=== PATIENT | male | born 1960 | race Caucasian/White ===

== ENCOUNTER 2017-01-26 10:31 | Emergency (ER) | payer BC, MEDICAID ==
[~2017-01-26] VITALS: Ht 177.8 cm; Wt 104.5 kg
[~2017-01-26 10:31] MED LIST: AMBIEN 10MG10 MG PO; AMBIEN5 MG PO; AMLOPIDINE; ASPIRIN 32325 MG/TAB PO; ASPIRIN E.C.325 MG PO; BENTYL 20MG TAB20 MG PO; BUDEPRION XL300 MG PO; BUFFERED ASPIR325 M1 PO; BUSPAR DIVIDOSE15 MG PO; BYSTOLIC10 MG PO; CARAFATE 1GM1 G PO; CARDENE 20MG CA20 M1 PO; CARDENE 20MG CA20 MG PO; CARDENE 30MG CA30 M1 PO; CELEXA 20MG20 MG/TAB PO; CELEXA20 MG PO; CELEXA40 MG PO; CEPHALEXIN500 M1 PO; CIPRO500 MG PO; CLOPIDOGREL PO; COGENTIN .0.5 MG/TAB PO; COLACE 100100 MG/CAP PO; CRESTOR; CRESTOR PO; CYMBALTA; CYMBALTA 60MG60 MG PO; CYPROHEPTADINE H4 MG PO; CYPROHEPTADINE4 MG PO; DARVOCET N 101 UDTAB PO; DAZIDOX10 MG PO; DICYCLOMINE20 MG PO; DILAUDID 2MG TAB2 MG PO; DILAUDID 4MG TAB4 MG; DOLOPHINE HCL5 MG PO; DURAGESIC25 MCG/PAT TD; EFFIENT10 MG PO; FENTANYL 25 MCG TP; FIORICET 325 MG1 TA1 PO; FIORINAL 325 MG1 CAP PO; FLEXERIL 1010 MG/TAB PO; GI COCKTAIL PO; GLUCOPHAGE1000 MG PO; HYGROTON25 MG PO; IMDUR 60MG60 MG/TAB PO; KLONOPIN 0.5MG0.5 MG PO; LASIX 20MG TABL20 MG PO; LASIX 40MG TABL40 MG PO; LEVAQUIN 5500 MG/TA1 PO; LIORESAL 1010 MG/TAB PO; LIPITOR20 MG PO; LISINOPRIL/HCTZ1 TAB PO; LISINOPRIL10 MG PO; LISINOPRIL2.5 MG PO; LISINOPRIL20 MG PO; LOPRESSOR; LORTAB 10/500 51 TAB PO; LORTAB 5/500 501 TAB PO; METHADONE H10 MG/TAB PO; METHADONE10 MG PO; METOPROLOL TART25 MG PO; METOPROLOL25 MG PO; MINIPRESS 1M1 MG/CAP PO; MOTRIN 400400 MG/TAB PO; MOTRIN 600600 MG/TAB PO; MS CONTIN 115 MG/TAB PO; NAPROSYN500 MG PO; NEUPRO4 MG/24 HR TD; NEXIUM 40MG40 MG PO; NIACIN500 M3 PO; NITROQUICK0.4 MG SL; NITROSTAT0.4 MG SL; NITROSTAT0.4 MG/TAB SL; NITROSTAT0.6 MG SL; NORCO 325 MG-51 TAB PO; NORCO 325 MG-7.1 TAB PO; NORVASC 10MG10 MG PO; NORVASC 5MG5 MG/TAB PO; NORVASC5 MG PO; OXYCODONE HYDRO10 M2 PO; OXYCODONE10 MG PO; OXYCONTIN 20MG20 MG PO; PEPCID 20MG TAB20 MG PO; PEPCID AC20 M1 PO; PEPCID AC20 MG PO; PERCOCET 325 MG1 TA2 PO; PERCOCET 325 MG1 TAB PO; PERCOCET 500 MG1 TAB PO; PERCR 7.5 PO; PERIACTIN 4MG TA4 MG PO; PHENERGAN 25 TA25 MG PO; PLAVIX 75MG TAB75 MG PO; PREDNISONE20 MG PO; PREVACID 30MG30 M1 PO; PRILOSEC10 MG PO; PROMETHAZINE25 M1 PO; RANEXA PO; RANEXA500 MG PO; RESTORIL 1515 MG/CAP PO; RESTORIL22.5 MG PO; RISPERDAL0.5 MG PO; RISPERDAL3 MG PO; SAPHRIS5 MG SL; SEROQUEL XR300 MG PO; TOPAMAX50 MG PO; TOPROL XL25 MG PO; TRAMADOL; TRICOR 48MG48 MG PO; TRILIPIX 135MG PO; TYLENOL 325MG325 MG PO; TYLENOL ARTHRI650 M1 PO; VITAMIN E 400 U4001 PO; VYTORIN; WELLBUTRIN XL150 MG PO; ZESTRIL 20MG TA20 MG PO; ZESTRIL40 MG PO; ZESTRIL5 MG PO; ZOCOR 20MG20 MG PO; ZOCOR20 MG PO; ZYPREXA5 MG PO; [UNRECOGNIZED DRUG - OTHER] PO
[2017-01-26 10:34] VITALS: TEMP 99
[2017-01-26] MEDS ORDERED: TRICOR145 MG PO (10:40)
[2017-01-26] MEDS ORDERED: LOPRESSOR 550 MG/TAB PO (10:41)
[2017-01-26] MEDS ORDERED: PRINIVIL2.5 MG PO (10:42)
[2017-01-26] MEDS ORDERED: REQUIP 1MG T1 MG/TAB PO (10:43)
[2017-01-26 11:22] LABS: BASO % 0.7 % (0.0-2.0); EOS # 0.3 (0.0-0.7); EOS % 4.8 % (0-4.0); GRAN # 3.5 (1.4-6.5); HEMATOCRIT 42.8 % (42.0-52.0); HEMOGLOBIN 14.3 g/dl (13.5-18.0); LYMPH # 1.4 (1.2-3.4); LYMPH % 24.4 % (20.0-51.0); MEAN CELL VOLUME 88 fl (80.0-100.0); MEAN CORPUSCULAR HEMOGLOBIN 30 pg (27.0-31.0); MEAN CORPUSCULAR HGB CONC 33 g/dl (33.0-37.0); MEAN PLATELET VOLUME 9.1 fl (7.4-10.4); MONO # 0.5 (0.1-0.6); MONO % 8.7 % (1.7-9.3); PLATELET COUNT 202 K/mm3 (130-400); RED BLOOD COUNT 4.84 M/mm3 (4.20-5.60); REDCELL DISTRIBUTION WIDTH-CV 12.7 % (11.5-14.5); WHITE BLOOD COUNT 5.7 K/mm3 (4.8-10.8)
[2017-01-26 11:30] LABS: INR 1.2 (0.8-3.0); PROTHROMBIN TIME 13.7 SECONDS (9.7-12.8)
[2017-01-26 11:33] LABS: PARTIAL THROMBOPLASTIN TIME 35.7 SECONDS (26.0-37.0)
[2017-01-26 11:46] LABS: ADJUSTED CALCIUM 9.2 mg/dL (8.4-10.2); ALBUMIN 4.1 gm/dL (3.5-5.0); BILIRUBIN,TOTAL 0.9 mg/dL (0.0-1.0); C-REACTIVE PROTEIN 1.9 mg/dL (0.0-0.9); CALCIUM 9.3 mg/dL (8.4-10.2); CREATININE, serum 1.23 mg/dL (0.66-1.25); POTASSIUM 3.3 mmol/L (3.4-5.0); TOTAL PROTEIN 7.8 gm/dL (6.4-8.2)
[2017-01-26 13:05] VITALS: BP 112/70; PULSE 72
== END 2017-01-26 13:06 | disposition home or self-care (01) ==
LOC: COL.ER 10:31
PROVIDERS: Physician Assistant
DX: K62.5 Hemorrhage of anus and rectum (principal); K59.00 Constipation, unspecified; K60.2 Anal fissure, unspecified; K64.4 Residual hemorrhoidal skin tags; I10 Essential (primary) hypertension; I25.10 Atherosclerotic heart disease of native coronary artery without angina pectoris; Z95.5 Presence of coronary angioplasty implant and graft; Z95.1 Presence of aortocoronary bypass graft; Z79.02 Long term (current) use of antithrombotics/antiplatelets; Z79.891 Long term (current) use of opiate analgesic
CPT/HCPCS: J1170; J7030

== ENCOUNTER 2017-03-13 09:34 | Emergency (ER) | payer BC, MEDICAID ==
[~2017-03-13] VITALS: Ht 177.8 cm; Wt 104.5 kg
[~2017-03-13 09:34] MED LIST changes: +LOPRESSOR 550 MG/TAB PO; +PRINIVIL2.5 MG PO; +REQUIP 1MG T1 MG/TAB PO; +TRICOR145 MG PO
[2017-03-13 09:35] VITALS: TEMP 97.7
[2017-03-13] MEDS ORDERED: SINEMET 25/101 UDTAB PO (10:30)
[2017-03-13 10:31] LABS: ADJUSTED CALCIUM 9.6 mg/dL (8.4-10.2); ALANINE AMINOTRANSFERASE 23 U/L (21-72); ALBUMIN 4.4 gm/dL (3.5-5.0); ALKALINE PHOSPHATASE 34 U/L (50-136); ANION GAP 13 mmol/L (7-16); BASO % 0.6 % (0.0-2.0); BILIRUBIN,TOTAL 0.7 mg/dL (0.0-1.0); BLOOD UREA NITROGEN 23 mg/dL (9-20); C-REACTIVE PROTEIN < 0.5 mg/dL (0.0-0.9); CALCIUM 9.9 mg/dL (8.4-10.2); CARBON DIOXIDE 29 mmol/L (22-30); CHLORIDE 99 mmol/L (98-107); CREATININE, serum 1.23 mg/dL (0.66-1.25); EOS # 0.3 (0.0-0.7); EOS % 4.2 % (0-4.0); GLUCOSE 147 mg/dL (74-106); GRAN % 63.8 % (42.2-75.2); HEMATOCRIT 44.9 % (42.0-52.0); HEMOGLOBIN 14.7 g/dl (13.5-18.0); LIPASE 59 U/L (23-300); LYMPH # 1.6 (1.2-3.4); LYMPH % 25.3 % (20.0-51.0); MEAN CELL VOLUME 89 fl (80.0-100.0); MEAN CORPUSCULAR HEMOGLOBIN 29 pg (27.0-31.0); MEAN CORPUSCULAR HGB CONC 33 g/dl (33.0-37.0); MEAN PLATELET VOLUME 9.9 fl (7.4-10.4); MONO # 0.4 (0.1-0.6); MONO % 5.8 % (1.7-9.3); PLATELET COUNT 248 K/mm3 (130-400); POTASSIUM 3.3 mmol/L (3.4-5.0); RED BLOOD COUNT 5.07 M/mm3 (4.20-5.60); REDCELL DISTRIBUTION WIDTH-CV 13.2 % (11.5-14.5); SODIUM 142 mmol/L (137-145); TOTAL PROTEIN 7.7 gm/dL (6.4-8.2); WHITE BLOOD COUNT 6.2 K/mm3 (4.8-10.8)
[2017-03-13 10:36] LABS: B-TYPE NATRIURETIC PEPTIDE 417 pg/mL (0-125)
[2017-03-13] MEDS ORDERED: ZOFRAN 4MG T4 MG/TAB PO (14:50)
[2017-03-13 15:06] VITALS: BP 134/78; PULSE 65
== END 2017-03-13 15:07 | disposition home or self-care (01) ==
LOC: COL.ER 09:34
PROVIDERS: Emergency Medicine
DX: R10.84 Generalized abdominal pain (principal); R53.81 Other malaise; R11.2 Nausea with vomiting, unspecified; R63.0 Anorexia; R42 Dizziness and giddiness; I51.9 Heart disease, unspecified; Z79.02 Long term (current) use of antithrombotics/antiplatelets
CPT/HCPCS: J1170; J2405; J7030; Q9967

== ENCOUNTER 2017-03-20 06:00 | Day surgery (SDC) | payer BC, MEDICAID ==
[~2017-03-20] VITALS: Ht 177.8 cm; Wt 102.4 kg
[~2017-03-20 06:00] MED LIST changes: +SINEMET 25/101 UDTAB PO; +ZOFRAN 4MG T4 MG/TAB PO
[2017-03-20 06:31] VITALS: BP 178/109; PULSE 72; TEMP 98.1
[2017-03-20] MEDS ORDERED: PERCOCET 325 MG1 TA2 PO (06:36)
[2017-03-20 08:15] VITALS: BP 104/76; PULSE 66; TEMP 97.5
[2017-03-20 08:30] VITALS: BP 132/94; PULSE 61
== END 2017-03-20 09:00 | disposition home or self-care (01) ==
LOC: SDCO 06:00
DX: R19.5 Other fecal abnormalities (principal); K57.30 Diverticulosis of large intestine without perforation or abscess without bleeding; E78.00 Pure hypercholesterolemia, unspecified; I10 Essential (primary) hypertension; Z87.891 Personal history of nicotine dependence; Z79.02 Long term (current) use of antithrombotics/antiplatelets; Z79.82 Long term (current) use of aspirin; Z79.899 Other long term (current) drug therapy
CPT/HCPCS: J2250; J3010; J7030

== ENCOUNTER 2017-11-13 06:41 | Inpatient (IN) | payer MEDICAID ==
[2017-11-13] VITALS (262 sets, daily range): BP systolic 127–150; BP diastolic 73–95; PULSE 77–85; TEMP 97.3–98.3; O2SAT 89–99
[~2017-11-13] VITALS: Ht 177.8 cm; Wt 102.9 kg
[2017-11-13 07:11] LABS: BASO # 0.1 (0.0-0.2); BASO % 0.7 % (0.0-2.0); EOS # 0.3 (0.0-0.7); EOS % 3.2 % (0-4.0); GRAN # 5.3 (1.4-6.5); GRAN % 61.8 % (42.2-75.2); HEMATOCRIT 51.8 % (42.0-52.0); HEMOGLOBIN 17.2 g/dl (13.5-18.0); LYMPH # 2.1 (1.2-3.4); LYMPH % 24.3 % (20.0-51.0); MEAN CELL VOLUME 92 fl (80.0-100.0); MEAN CORPUSCULAR HEMOGLOBIN 30 pg (27.0-31.0); MEAN CORPUSCULAR HGB CONC 33 g/dl (33.0-37.0); MEAN PLATELET VOLUME 9.4 fl (7.4-10.4); MONO # 0.8 (0.1-0.6); MONO % 9.5 % (1.7-9.3); PLATELET COUNT 228 K/mm3 (130-400); RED BLOOD COUNT 5.66 M/mm3 (4.20-5.60); WHITE BLOOD COUNT 8.6 K/mm3 (4.8-10.8)
[2017-11-13 07:15] LABS: INR 1.2 (0.8-3.0); PROTHROMBIN TIME 13.4 SECONDS (9.7-12.8)
[2017-11-13 07:18] LABS: PARTIAL THROMBOPLASTIN TIME 30.6 SECONDS (26.0-37.0)
[2017-11-13 07:22] LABS: ALANINE AMINOTRANSFERASE 50 U/L (21-72); ALBUMIN 4.4 gm/dL (3.5-5.0); ALKALINE PHOSPHATASE 75 U/L (50-136); ANION GAP 13 mmol/L (7-16); BILIRUBIN,TOTAL 0.8 mg/dL (0.0-1.0); BLOOD UREA NITROGEN 18 mg/dL (9-20); CALCIUM 9.3 mg/dL (8.4-10.2); CARBON DIOXIDE 21 mmol/L (22-30); CHLORIDE 107 mmol/L (98-107); CREATININE, serum 0.93 mg/dL (0.66-1.25); GLUCOSE 123 mg/dL (74-106); LIPASE 98 U/L (23-300); POTASSIUM 3.6 mmol/L (3.4-5.0); SODIUM 141 mmol/L (137-145); TOTAL PROTEIN 8.3 gm/dL (6.4-8.2)
[2017-11-13] MEDS ORDERED: IMDUR 60MG60 MG/TAB PO (07:33)
[2017-11-13 07:34] LABS: B-TYPE NATRIURETIC PEPTIDE 69 pg/mL (0-125)
[2017-11-13] MEDS ORDERED: PERCOCET 325 MG1 TAB PO (07:36)
[2017-11-13] MEDS ORDERED: RANEXA 500MG T500 MG PO (07:36)
[2017-11-13 07:37] LABS: TROPONIN-I < 0.012 ng/mL (0.000-0.034)
[2017-11-14 00:39] VITALS: BP 119/68; PULSE 61; TEMP 98.3
[2017-11-14 03:22] VITALS: BP 120/85; PULSE 66
[2017-11-14 07:36] VITALS: BP 127/67; PULSE 64; TEMP 98
[2017-11-14 11:09] VITALS: BP 135/67; PULSE 59; TEMP 97.6
[2017-11-14] MEDS ORDERED: NITROSTAT0.4 MG/TAB SL (12:37)
[2017-11-14] MEDS ORDERED: RANEXA 500MG T500 MG PO (12:38)
[2017-11-14] MEDS ORDERED: IMDUR 60MG60 MG/TAB PO (12:38)
[2017-11-14] MEDS ORDERED: PERCOCET 325 MG1 TAB PO (12:39)
== END 2017-11-14 14:00 | disposition home or self-care (01) | DRG 313 ==
LOC: COL.ER 06:41 → ICU 08:07 → MEDICAL 14:50 → ICU 14:50 → MEDICAL 14:50
PROVIDERS: Emergency Medicine
DX: R07.89 Other chest pain (principal); I10 Essential (primary) hypertension; I25.2 Old myocardial infarction; G47.33 Obstructive sleep apnea (adult) (pediatric); F17.210 Nicotine dependence, cigarettes, uncomplicated; Z95.0 Presence of cardiac pacemaker; Z95.5 Presence of coronary angioplasty implant and graft
CPT/HCPCS: J2270; J2405

== ENCOUNTER 2017-11-16 14:08 | Emergency (ER) | payer MEDICAID ==
[~2017-11-16] VITALS: Ht 177.8 cm; Wt 104.5 kg
[~2017-11-16 14:08] MED LIST changes: +RANEXA 500MG T500 MG PO
[2017-11-16 14:11] VITALS: TEMP 96
[2017-11-16 14:43] LABS: BASO % 0.5 % (0.0-2.0); EOS # 0.2 (0.0-0.7); EOS % 3.9 % (0-4.0); GRAN # 3.4 (1.4-6.5); HEMATOCRIT 47.8 % (42.0-52.0); HEMOGLOBIN 16.1 g/dl (13.5-18.0); LYMPH # 1.4 (1.2-3.4); LYMPH % 25.1 % (20.0-51.0); MEAN CELL VOLUME 90 fl (80.0-100.0); MEAN CORPUSCULAR HEMOGLOBIN 30 pg (27.0-31.0); MEAN CORPUSCULAR HGB CONC 34 g/dl (33.0-37.0); MEAN PLATELET VOLUME 9.6 fl (7.4-10.4); MONO # 0.5 (0.1-0.6); MONO % 9.1 % (1.7-9.3); PLATELET COUNT 221 K/mm3 (130-400); RED BLOOD COUNT 5.33 M/mm3 (4.20-5.60); WHITE BLOOD COUNT 5.6 K/mm3 (4.8-10.8)
[2017-11-16 14:53] LABS: ADJUSTED CALCIUM 9.3 mg/dL (8.4-10.2); ALANINE AMINOTRANSFERASE 52 U/L (21-72); ALBUMIN 4.1 gm/dL (3.5-5.0); ALKALINE PHOSPHATASE 63 U/L (50-136); ANION GAP 9 mmol/L (7-16); BILIRUBIN,TOTAL 0.6 mg/dL (0.0-1.0); BLOOD UREA NITROGEN 11 mg/dL (9-20); CALCIUM 9.4 mg/dL (8.4-10.2); CARBON DIOXIDE 25 mmol/L (22-30); CHLORIDE 106 mmol/L (98-107); CREATININE, serum 1.14 mg/dL (0.66-1.25); GLUCOSE 141 mg/dL (74-106); LIPASE 48 U/L (23-300); POTASSIUM 3.5 mmol/L (3.4-5.0); SODIUM 140 mmol/L (137-145); TOTAL PROTEIN 7.6 gm/dL (6.4-8.2)
[2017-11-16 15:05] LABS: B-TYPE NATRIURETIC PEPTIDE 210 pg/mL (0-125)
[2017-11-16 15:06] LABS: TROPONIN-I < 0.012 ng/mL (0.000-0.034)
[2017-11-16 17:14] VITALS: BP 165/106; PULSE 78
== END 2017-11-16 17:15 | disposition home or self-care (01) ==
LOC: COL.ER 14:08
PROVIDERS: Emergency Medicine
DX: I25.10 Atherosclerotic heart disease of native coronary artery without angina pectoris (principal); R55 Syncope and collapse; R07.9 Chest pain, unspecified; I10 Essential (primary) hypertension; E78.5 Hyperlipidemia, unspecified; F17.210 Nicotine dependence, cigarettes, uncomplicated; Z95.5 Presence of coronary angioplasty implant and graft; Z90.49 Acquired absence of other specified parts of digestive tract
CPT/HCPCS: J2270; J2405

== ENCOUNTER 2017-12-17 16:21 | Emergency (ER) | payer MEDICAID ==
[~2017-12-17] VITALS: Ht 177.8 cm; Wt 100.0 kg
[2017-12-17 16:31] VITALS: TEMP 99.5
[2017-12-17 16:57] LABS: BASO # 0.1 (0.0-0.2); BASO % 0.7 % (0.0-2.0); EOS # 0.2 (0.0-0.7); EOS % 3.3 % (0-4.0); GRAN # 4.2 (1.4-6.5); HEMOGLOBIN 16.6 g/dl (13.5-18.0); LYMPH % 28.2 % (20.0-51.0); MEAN CELL VOLUME 89 fl (80.0-100.0); MEAN CORPUSCULAR HEMOGLOBIN 30 pg (27.0-31.0); MEAN CORPUSCULAR HGB CONC 34 g/dl (33.0-37.0); MEAN PLATELET VOLUME 9.6 fl (7.4-10.4); MONO # 0.7 (0.1-0.6); MONO % 9.4 % (1.7-9.3); PLATELET COUNT 209 K/mm3 (130-400); RED BLOOD COUNT 5.53 M/mm3 (4.20-5.60); REDCELL DISTRIBUTION WIDTH-CV 13.4 % (11.5-14.5)
[2017-12-17 17:06] LABS: ALANINE AMINOTRANSFERASE 38 U/L (21-72); ALBUMIN 4.4 gm/dL (3.5-5.0); ALKALINE PHOSPHATASE 59 U/L (50-136); ANION GAP 9 mmol/L (7-16); AST,SGOT 32 U/L (15-37); BILIRUBIN,TOTAL 0.6 mg/dL (0.0-1.0); BLOOD UREA NITROGEN 16 mg/dL (9-20); C-REACTIVE PROTEIN 0.6 mg/dL (0.0-0.9); CALCIUM 9.6 mg/dL (8.4-10.2); CARBON DIOXIDE 25 mmol/L (22-30); CHLORIDE 104 mmol/L (98-107); CREATININE, serum 1.06 mg/dL (0.66-1.25); GLUCOSE 121 mg/dL (74-106); LIPASE 159 U/L (23-300); POTASSIUM 3.8 mmol/L (3.4-5.0); SODIUM 139 mmol/L (137-145)
[2017-12-17 17:15] LABS: TROPONIN-I < 0.012 ng/mL (0.000-0.034)
[2017-12-17 17:34] LABS: INFLUENZA A NEGATIVE; INFLUENZA B NEGATIVE
[2017-12-17] MEDS ORDERED: CYMBALTA 30MG30 MG PO (21:29)
[2017-12-17 22:39] VITALS: BP 154/94; PULSE 63
== END 2017-12-17 22:39 | disposition home or self-care (01) ==
LOC: COL.ER 16:21 → ICU 21:48
PROVIDERS: Emergency Medicine
DX: R07.89 Other chest pain (principal); E78.5 Hyperlipidemia, unspecified; I25.2 Old myocardial infarction; F17.210 Nicotine dependence, cigarettes, uncomplicated; I25.10 Atherosclerotic heart disease of native coronary artery without angina pectoris; Z95.5 Presence of coronary angioplasty implant and graft
CPT/HCPCS: J1170; J2405

== ENCOUNTER → 2017-12-30 | Outpatient (CLI) | payer MEDICAID ==
[~2017-12-30] MED LIST changes: +CYMBALTA 30MG30 MG PO
== END ==
LOC: COL.RAD 12-24 13:00
DX: M50.30 Other cervical disc degeneration, unspecified cervical region (principal); M50.223 Other cervical disc displacement at C6-C7 level; M48.02 Spinal stenosis, cervical region

== ENCOUNTER 2018-01-04 10:23 | Emergency (ER) | payer MEDICAID ==
[~2018-01-04] VITALS: Ht 177.8 cm; Wt 100.0 kg
[2018-01-04 10:28] VITALS: TEMP 97.2
[2018-01-04 11:21] LABS: BASO # 0.1 (0.0-0.2); BASO % 1.5 % (0.0-2.0); EOS # 0.4 (0.0-0.7); EOS % 4.9 % (0-4.0); GRAN # 5.1 (1.4-6.5); GRAN % 61.4 % (42.2-75.2); HEMOGLOBIN 17.8 g/dl (13.5-18.0); LYMPH # 2.2 (1.2-3.4); LYMPH % 26.8 % (20.0-51.0); MEAN CELL VOLUME 88 fl (80.0-100.0); MEAN CORPUSCULAR HEMOGLOBIN 30 pg (27.0-31.0); MEAN CORPUSCULAR HGB CONC 34 g/dl (33.0-37.0); MONO # 0.4 (0.1-0.6); MONO % 4.7 % (1.7-9.3); PLATELET COUNT 294 K/mm3 (130-400); RED BLOOD COUNT 5.96 M/mm3 (4.20-5.60); REDCELL DISTRIBUTION WIDTH-CV 13.8 % (11.5-14.5)
[2018-01-04 11:22] LABS: HEMATOCRIT 52.5 % (42.0-52.0)
[2018-01-04 11:27] LABS: ALANINE AMINOTRANSFERASE 33 U/L (21-72); ALBUMIN 4.6 gm/dL (3.5-5.0); ALKALINE PHOSPHATASE 65 U/L (50-136); ANION GAP 17 mmol/L (7-16); AST,SGOT 34 U/L (15-37); BILIRUBIN,TOTAL 0.5 mg/dL (0.0-1.0); BLOOD UREA NITROGEN 11 mg/dL (9-20); CALCIUM 9.1 mg/dL (8.4-10.2); CARBON DIOXIDE 21 mmol/L (22-30); CHLORIDE 105 mmol/L (98-107); CREATININE, serum 0.81 mg/dL (0.66-1.25); GLUCOSE 121 mg/dL (74-106); POTASSIUM 4.3 mmol/L (3.4-5.0); SODIUM 143 mmol/L (137-145); TOTAL PROTEIN 8.7 gm/dL (6.4-8.2)
[2018-01-04 11:29] LABS: ACETAMINOPHEN < 10 ug/mL (10-30); SALICYLATE < 1.0 mg/dL
[2018-01-04 11:41] LABS: ALCOHOL(ethanol),MEDICAL 345 mg/dL; TROPONIN-I < 0.012 ng/mL (0.000-0.034)
[2018-01-04 13:54] VITALS: BP 134/81; PULSE 86
[2018-01-04] MEDS ORDERED: SINEMET-25/251 UDTAB PO (17:39)
[2018-01-04] MEDS ORDERED: TRICOR145 MG PO (17:42)
[2018-01-04] MEDS ORDERED: PACERONE200 MG PO (17:50)
== END 2018-01-04 13:55 | disposition home or self-care (01) ==
LOC: COL.ER 10:23
PROVIDERS: Emergency Medicine
DX: F10.129 Alcohol abuse with intoxication, unspecified (principal); Y90.8 Blood alcohol level of 240 mg/100 ml or more; F32.9 Major depressive disorder, single episode, unspecified; F11.20 Opioid dependence, uncomplicated; I10 Essential (primary) hypertension; I25.10 Atherosclerotic heart disease of native coronary artery without angina pectoris; Z95.5 Presence of coronary angioplasty implant and graft; Z95.0 Presence of cardiac pacemaker; Z90.49 Acquired absence of other specified parts of digestive tract

== ENCOUNTER 2018-01-04 15:38 | Emergency (ER) | payer MEDICAID ==
[~2018-01-04] VITALS: Ht 177.8 cm; Wt 95.5 kg
[2018-01-04 15:43] VITALS: TEMP 98.3
[2018-01-04 16:19] LABS: COLLECTION METHOD CLEAN CATCH
[2018-01-04 16:24] LABS: PH 5 (5-8); URINE APPEARANCE Clear; URINE BILIRUBIN Negative (NEGATIVE); URINE BLOOD 1+ (NEGATIVE); URINE COLOR Yellow; URINE GLUCOSE Negative (NEGATIVE); URINE KETONE Negative (NEGATIVE); URINE LEUKOCYTE ESTERASE Negative (NEGATIVE); URINE NITRATE Negative (NEGATIVE); URINE PROTEIN(semi-quant) 1+ (NEGATIVE); URINE UROBILINOGEN Negative (NEGATIVE)
[2018-01-04 16:39] LABS: URINE RBC 0-2 /hpf
[2018-01-04 16:50] LABS: TRICYCLIC ANTIDEPRESS URINE NEGATIVE
[2018-01-04 17:02] LABS: ALANINE AMINOTRANSFERASE 29 U/L (21-72); ALBUMIN 4.8 gm/dL (3.5-5.0); ALCOHOL(ethanol),MEDICAL 183 mg/dL; ALKALINE PHOSPHATASE 57 U/L (50-136); ANION GAP 17 mmol/L (7-16); AST,SGOT 27 U/L (15-37); BILIRUBIN,TOTAL 0.4 mg/dL (0.0-1.0); BLOOD UREA NITROGEN 12 mg/dL (9-20); CALCIUM 9.6 mg/dL (8.4-10.2); CARBON DIOXIDE 22 mmol/L (22-30); CHLORIDE 104 mmol/L (98-107); CREATININE, serum 0.83 mg/dL (0.66-1.25); GLUCOSE 164 mg/dL (74-106); POTASSIUM 4.3 mmol/L (3.4-5.0); SODIUM 143 mmol/L (137-145); TOTAL PROTEIN 8.3 gm/dL (6.4-8.2)
[2018-01-04 17:03] LABS: ACETAMINOPHEN < 10 ug/mL (10-30); SALICYLATE < 1.0 mg/dL
[2018-01-04 17:39] LABS: BASO # 0.1 (0.0-0.2); BASO % 1.2 % (0.0-2.0); EOS # 0.2 (0.0-0.7); EOS % 2.9 % (0-4.0); GRAN # 5.3 (1.4-6.5); GRAN % 65.8 % (42.2-75.2); HEMOGLOBIN 17.7 g/dl (13.5-18.0); LYMPH # 1.9 (1.2-3.4); LYMPH % 23.4 % (20.0-51.0); MEAN CELL VOLUME 88 fl (80.0-100.0); MEAN CORPUSCULAR HEMOGLOBIN 30 pg (27.0-31.0); MEAN CORPUSCULAR HGB CONC 34 g/dl (33.0-37.0); MEAN PLATELET VOLUME 8.8 fl (7.4-10.4); MONO # 0.5 (0.1-0.6); MONO % 6.2 % (1.7-9.3); PLATELET COUNT 303 K/mm3 (130-400); RED BLOOD COUNT 5.94 M/mm3 (4.20-5.60); REDCELL DISTRIBUTION WIDTH-CV 13.8 % (11.5-14.5)
[2018-01-04] MEDS ORDERED: SINEMET-25/251 UDTAB PO (17:39)
[2018-01-04 17:40] LABS: HEMATOCRIT 52.2 % (42.0-52.0)
[2018-01-04] MEDS ORDERED: TRICOR145 MG PO (17:42)
[2018-01-04] MEDS ORDERED: PACERONE200 MG PO (17:50)
[2018-01-05 03:46] VITALS: BP 177/87; PULSE 62
== END 2018-01-05 04:19 ==
LOC: COL.ER 15:38
PROVIDERS: Emergency Medicine
DX: F10.129 Alcohol abuse with intoxication, unspecified (principal); F32.9 Major depressive disorder, single episode, unspecified; R45.851 Suicidal ideations; I10 Essential (primary) hypertension; I25.10 Atherosclerotic heart disease of native coronary artery without angina pectoris; G89.29 Other chronic pain; F17.210 Nicotine dependence, cigarettes, uncomplicated; Y90.6 Blood alcohol level of 120-199 mg/100 ml; Z95.0 Presence of cardiac pacemaker; Z79.02 Long term (current) use of antithrombotics/antiplatelets

== ENCOUNTER → 2018-01-19 | Outpatient (CLI) | payer MEDICAID ==
[~2018-01-19] MED LIST changes: +PACERONE200 MG PO; +SINEMET-25/251 UDTAB PO
== END ==
LOC: MHCPAIN 14:20
DX: G89.29 Other chronic pain (principal); M54.12 Radiculopathy, cervical region; M47.812 Spondylosis without myelopathy or radiculopathy, cervical region; R51 Headache; M54.81 Occipital neuralgia
CPT/HCPCS: G0463

== ENCOUNTER 2018-02-04 17:26 | Emergency (ER) | payer BC, MEDICAID ==
[~2018-02-04] VITALS: Ht 177.8 cm; Wt 104.5 kg
[2018-02-04 17:28] VITALS: BP 146/90; PULSE 87; TEMP 98
[2018-02-04 19:40] LABS: BASO # 0.1 (0.0-0.2); EOS # 0.4 (0.0-0.7); EOS % 4.8 % (0-4.0); GRAN # 5.5 (1.4-6.5); GRAN % 60.4 % (42.2-75.2); HEMATOCRIT 45.4 % (42.0-52.0); LYMPH # 2.3 (1.2-3.4); LYMPH % 25.1 % (20.0-51.0); MEAN CELL VOLUME 90 fl (80.0-100.0); MEAN CORPUSCULAR HEMOGLOBIN 30 pg (27.0-31.0); MEAN CORPUSCULAR HGB CONC 33 g/dl (33.0-37.0); MEAN PLATELET VOLUME 9.7 fl (7.4-10.4); MONO # 0.7 (0.1-0.6); MONO % 7.9 % (1.7-9.3); PLATELET COUNT 251 K/mm3 (130-400); RED BLOOD COUNT 5.07 M/mm3 (4.20-5.60); REDCELL DISTRIBUTION WIDTH-CV 13.9 % (11.5-14.5)
[2018-02-04 19:45] LABS: ALANINE AMINOTRANSFERASE 27 U/L (21-72); ALKALINE PHOSPHATASE 37 U/L (50-136); ANION GAP 10 mmol/L (7-16); AST,SGOT 29 U/L (15-37); BILIRUBIN,TOTAL 0.4 mg/dL (0.0-1.0); BLOOD UREA NITROGEN 18 mg/dL (9-20); CALCIUM 9.5 mg/dL (8.4-10.2); CARBON DIOXIDE 28 mmol/L (22-30); CHLORIDE 100 mmol/L (98-107); CREATININE, serum 1.01 mg/dL (0.66-1.25); GLUCOSE 110 mg/dL (74-106); POTASSIUM 3.9 mmol/L (3.4-5.0); SODIUM 139 mmol/L (137-145); TOTAL PROTEIN 7.6 gm/dL (6.4-8.2)
[2018-02-04 19:46] LABS: ACETAMINOPHEN < 10 ug/mL (10-30); ALCOHOL(ethanol),MEDICAL < 10 mg/dL; SALICYLATE < 1.0 mg/dL
[2018-02-04 20:08] LABS: TRICYCLIC ANTIDEPRESS URINE NEGATIVE
== END 2018-02-04 23:35 | disposition home or self-care (01) ==
LOC: COL.ER 17:26
PROVIDERS: Emergency Medicine
DX: R51 Headache (principal); I25.2 Old myocardial infarction; G20 Parkinson's disease; F17.210 Nicotine dependence, cigarettes, uncomplicated; Z87.19 Personal history of other diseases of the digestive system; Z98.890 Other specified postprocedural states; Z79.02 Long term (current) use of antithrombotics/antiplatelets
CPT/HCPCS: J1200; J1630; J2060; J2765; J3475

== ENCOUNTER → 2018-02-09 | Outpatient (CLI) | payer BC, MEDICAID | LOC: MHCPAIN 12:17 | DX: G89.29 Other chronic pain (principal); M50.90 Cervical disc disorder, unspecified, unspecified cervical region; M54.12 Radiculopathy, cervical region; R51 Headache; M96.1 Postlaminectomy syndrome, not elsewhere classified | CPT/HCPCS: G0463 ==

== ENCOUNTER → 2018-03-15 | Outpatient (CLI) | payer BC, MEDICAID | LOC: MHCPAIN 09:02 | DX: G89.29 Other chronic pain (principal); M50.90 Cervical disc disorder, unspecified, unspecified cervical region; R51 Headache; M96.1 Postlaminectomy syndrome, not elsewhere classified | CPT/HCPCS: G0463 ==

== ENCOUNTER 2018-03-21 07:07 | Emergency (ER) | payer MEDICAID ==
[~2018-03-21] VITALS: Ht 177.8 cm; Wt 104.5 kg
[2018-03-21 07:18] VITALS: TEMP 98.4
[2018-03-21 07:31] LABS: BASO % 0.6 % (0.0-2.0); EOS # 0.4 (0.0-0.7); EOS % 5.9 % (0-4.0); GRAN # 3.9 (1.4-6.5); GRAN % 58.6 % (42.2-75.2); HEMATOCRIT 40.8 % (42.0-52.0); HEMOGLOBIN 13.7 g/dl (13.5-18.0); LYMPH # 1.5 (1.2-3.4); LYMPH % 22.7 % (20.0-51.0); MEAN CELL VOLUME 92 fl (80.0-100.0); MEAN CORPUSCULAR HEMOGLOBIN 31 pg (27.0-31.0); MEAN CORPUSCULAR HGB CONC 34 g/dl (33.0-37.0); MEAN PLATELET VOLUME 9.6 fl (7.4-10.4); MONO # 0.7 (0.1-0.6); MONO % 10.8 % (1.7-9.3); PLATELET COUNT 205 K/mm3 (130-400); RED BLOOD COUNT 4.46 M/mm3 (4.20-5.60); REDCELL DISTRIBUTION WIDTH-CV 14.8 % (11.5-14.5)
[2018-03-21 07:42] LABS: ALANINE AMINOTRANSFERASE 23 U/L (21-72); ALBUMIN 3.6 gm/dL (3.5-5.0); ALKALINE PHOSPHATASE 48 U/L (50-136); ANION GAP 10 mmol/L (7-16); AST,SGOT 24 U/L (15-37); BILIRUBIN,TOTAL 0.5 mg/dL (0.0-1.0); BLOOD UREA NITROGEN 7 mg/dL (9-20); CALCIUM 8.7 mg/dL (8.4-10.2); CARBON DIOXIDE 30 mmol/L (22-30); CHLORIDE 101 mmol/L (98-107); CREATINE KINASE 122 U/L (55-170); CREATININE, serum 0.92 mg/dL (0.66-1.25); GLUCOSE 139 mg/dL (74-106); LIPASE 47 U/L (23-300); POTASSIUM 3.5 mmol/L (3.4-5.0); SODIUM 141 mmol/L (137-145); TOTAL PROTEIN 7.6 gm/dL (6.4-8.2)
[2018-03-21] MEDS ORDERED: PERCOCET 325 MG1 TAB PO (07:42)
[2018-03-21] MEDS ORDERED: SEROQUEL 2525 MG/TAB PO (07:42)
[2018-03-21] MEDS ORDERED: SEROQUEL 200MG200 MG PO (07:43)
[2018-03-21] MEDS ORDERED: REMERON 15M15 MG/TA1 PO (07:44)
[2018-03-21 07:46] LABS: INR 1.2 (0.8-3.0); PROTHROMBIN TIME 13.7 SECONDS (9.7-12.8)
[2018-03-21 07:49] LABS: PARTIAL THROMBOPLASTIN TIME 30.3 SECONDS (26.0-37.0)
[2018-03-21 07:55] LABS: TROPONIN-I < 0.012 ng/mL (0.000-0.034)
[2018-03-21 08:02] LABS: COLLECTION METHOD CLEAN CATCH
[2018-03-21 08:10] LABS: PH 7 (5-8); SQUAMOUS EPITHELIAL None Seen /hpf; URINE APPEARANCE Clear; URINE BACTERIA None Seen /hpf; URINE BILIRUBIN Negative (NEGATIVE); URINE BLOOD Negative (NEGATIVE); URINE COLOR Yellow; URINE GLUCOSE Negative (NEGATIVE); URINE KETONE Negative (NEGATIVE); URINE LEUKOCYTE ESTERASE Negative (NEGATIVE); URINE NITRATE Negative (NEGATIVE); URINE PROTEIN(semi-quant) Negative (NEGATIVE); URINE RBC None Seen /hpf
[2018-03-21] MEDS ORDERED: CARAFATE 1GM1 G PO (09:00)
[2018-03-21] MEDS ORDERED: PROTONIX 40MG T40 MG PO (09:00)
[2018-03-21 09:31] VITALS: BP 144/85; PULSE 60
[2018-03-22] VITALS (108 sets, daily range): O2SAT 96–100
== END 2018-03-21 09:46 | disposition home or self-care (01) ==
LOC: COL.ER 07:07
PROVIDERS: Emergency Medicine
DX: K20.9 Esophagitis, unspecified (principal); M54.6 Pain in thoracic spine; R07.89 Other chest pain; I10 Essential (primary) hypertension; I25.10 Atherosclerotic heart disease of native coronary artery without angina pectoris; I42.2 Other hypertrophic cardiomyopathy; G89.29 Other chronic pain; Z86.79 Personal history of other diseases of the circulatory system; Z95.0 Presence of cardiac pacemaker; Z95.1 Presence of aortocoronary bypass graft; Z95.5 Presence of coronary angioplasty implant and graft; Z90.49 Acquired absence of other specified parts of digestive tract; Z79.02 Long term (current) use of antithrombotics/antiplatelets
CPT/HCPCS: Q9967

== ENCOUNTER 2018-03-22 08:09 | Inpatient (IN) | payer MEDICAID ==
[~2018-03-22] VITALS: Ht 177.8 cm; Wt 111.6 kg
[2018-03-22] VITALS (578 sets, daily range): BP systolic 88–143; BP diastolic 52–85; PULSE 59–69; TEMP 98–98.5; O2SAT 75–100
[~2018-03-22 08:09] MED LIST changes: +PROTONIX 40MG T40 MG PO; +REMERON 15M15 MG/TA1 PO; +SEROQUEL 200MG200 MG PO; +SEROQUEL 2525 MG/TAB PO
[2018-03-22 08:25] LABS: ARTERIAL BLD GAS O2 SATURATION 93.8 % (92-100); ARTERIAL BLD GAS TCO2 CT 27.9; ARTERIAL BLOOD GAS BASE EXCESS -1.4 (-2-2); ARTERIAL BLOOD GAS HCO3 26.2 meq/L (22-26); ARTERIAL BLOOD GAS PCO2 55.4 mmHg (35-45); ARTERIAL BLOOD GAS pH 7.29 (7.35-7.45)
[2018-03-22 08:34] LABS: BASO # 0.1 (0.0-0.2); BASO % 0.5 % (0.0-2.0); EOS # 0.5 (0.0-0.7); EOS % 4.1 % (0-4.0); GRAN # 8.7 (1.4-6.5); GRAN % 73.4 % (42.2-75.2); HEMATOCRIT 43.6 % (42.0-52.0); HEMOGLOBIN 14.6 g/dl (13.5-18.0); LYMPH # 1.7 (1.2-3.4); MEAN CELL VOLUME 91 fl (80.0-100.0); MEAN CORPUSCULAR HEMOGLOBIN 30 pg (27.0-31.0); MEAN CORPUSCULAR HGB CONC 34 g/dl (33.0-37.0); MEAN PLATELET VOLUME 9.9 fl (7.4-10.4); MONO # 0.8 (0.1-0.6); PLATELET COUNT 298 K/mm3 (130-400); REDCELL DISTRIBUTION WIDTH-CV 14.8 % (11.5-14.5)
[2018-03-22 08:43] LABS: INR 1.3 (0.8-3.0); PROTHROMBIN TIME 14.8 SECONDS (9.7-12.8)
[2018-03-22 08:46] LABS: PARTIAL THROMBOPLASTIN TIME 28.9 SECONDS (26.0-37.0)
[2018-03-22 08:49] LABS: ALANINE AMINOTRANSFERASE 23 U/L (21-72); ALBUMIN 3.9 gm/dL (3.5-5.0); ALKALINE PHOSPHATASE 50 U/L (50-136); ANION GAP 14 mmol/L (7-16); AST,SGOT 23 U/L (15-37); BILIRUBIN,TOTAL 0.8 mg/dL (0.0-1.0); BLOOD UREA NITROGEN 9 mg/dL (9-20); CALCIUM 8.7 mg/dL (8.4-10.2); CARBON DIOXIDE 24 mmol/L (22-30); CHLORIDE 99 mmol/L (98-107); CREATINE KINASE 95 U/L (55-170); CREATININE, serum 0.93 mg/dL (0.66-1.25); GLUCOSE 254 mg/dL (74-106); LIPASE 31 U/L (23-300); POTASSIUM 3.7 mmol/L (3.4-5.0); SODIUM 137 mmol/L (137-145); TOTAL PROTEIN 8.4 gm/dL (6.4-8.2)
[2018-03-22 09:02] LABS: TROPONIN-I < 0.012 ng/mL (0.000-0.034)
[2018-03-23] VITALS (590 sets, daily range): BP systolic 110–133; BP diastolic 64–89; PULSE 59–60; TEMP 97.7–98.8; O2SAT 90–100
[2018-03-23 05:26] LABS: BASO % 0.5 % (0.0-2.0); EOS # 0.3 (0.0-0.7); EOS % 5.4 % (0-4.0); GRAN # 3.3 (1.4-6.5); GRAN % 60.4 % (42.2-75.2); HEMATOCRIT 39.5 % (42.0-52.0); LYMPH # 1.2 (1.2-3.4); LYMPH % 22.4 % (20.0-51.0); MEAN CELL VOLUME 93 fl (80.0-100.0); MEAN CORPUSCULAR HEMOGLOBIN 31 pg (27.0-31.0); MEAN CORPUSCULAR HGB CONC 33 g/dl (33.0-37.0); MEAN PLATELET VOLUME 9.5 fl (7.4-10.4); MONO # 0.6 (0.1-0.6); MONO % 10.8 % (1.7-9.3); PLATELET COUNT 201 K/mm3 (130-400); RED BLOOD COUNT 4.25 M/mm3 (4.20-5.60); REDCELL DISTRIBUTION WIDTH-CV 15.1 % (11.5-14.5)
[2018-03-23 05:42] LABS: ALBUMIN 3.4 gm/dL (3.5-5.0); BILIRUBIN,TOTAL 0.7 mg/dL (0.0-1.0); CALCIUM 8.6 mg/dL (8.4-10.2); CREATININE, serum 1.03 mg/dL (0.66-1.25); MAGNESIUM 1.9 mg/dL (1.6-2.3); POTASSIUM 3.2 mmol/L (3.4-5.0); TOTAL PROTEIN 7.3 gm/dL (6.4-8.2)
[2018-03-24] VITALS: BP 142/85; PULSE 61; TEMP 97.5
[2018-03-24 04:00] VITALS: BP 155/91; BP 170/91; PULSE 62; TEMP 97.4
[2018-03-24 06:44] LABS: BASO % 0.5 % (0.0-2.0); EOS # 0.4 (0.0-0.7); EOS % 6.9 % (0-4.0); GRAN # 3.2 (1.4-6.5); GRAN % 57.5 % (42.2-75.2); HEMATOCRIT 40.4 % (42.0-52.0); HEMOGLOBIN 13.3 g/dl (13.5-18.0); LYMPH # 1.3 (1.2-3.4); LYMPH % 23.1 % (20.0-51.0); MEAN CELL VOLUME 93 fl (80.0-100.0); MEAN CORPUSCULAR HEMOGLOBIN 31 pg (27.0-31.0); MEAN CORPUSCULAR HGB CONC 33 g/dl (33.0-37.0); MEAN PLATELET VOLUME 9.7 fl (7.4-10.4); MONO # 0.6 (0.1-0.6); MONO % 11.3 % (1.7-9.3); PLATELET COUNT 241 K/mm3 (130-400); RED BLOOD COUNT 4.36 M/mm3 (4.20-5.60); REDCELL DISTRIBUTION WIDTH-CV 14.5 % (11.5-14.5)
[2018-03-24 07:03] LABS: ALBUMIN 3.4 gm/dL (3.5-5.0); BILIRUBIN,TOTAL 0.5 mg/dL (0.0-1.0); CREATININE, serum 1.04 mg/dL (0.66-1.25); POTASSIUM 3.4 mmol/L (3.4-5.0); TOTAL PROTEIN 7.4 gm/dL (6.4-8.2)
[2018-03-24 08:31] VITALS: BP 140/85; PULSE 64; TEMP 98.8
[2018-03-24 12:30] VITALS: BP 106/63; PULSE 62; TEMP 97.6
[2018-03-24] MEDS ORDERED: FLAGYL500 MG PO (14:10)
[2018-03-24] MEDS ORDERED: CIPRO 500MG TA500 MG PO (14:10)
[2018-03-24] MEDS ORDERED: LASIX 20MG TABL20 MG PO (14:12)
[2018-03-24] MEDS ORDERED: ASPIRIN 81M81 MG/TA2 PO (14:12)
== END 2018-03-24 15:36 | disposition home or self-care (01) | DRG 280 ==
LOC: COL.ER 08:09 → JCC 09:08 → ICU 09:08 → JCC 03-23 13:03
PROVIDERS: Emergency Medicine; Internal Medicine
DX: I11.0 Hypertensive heart disease with heart failure (principal); J96.01 Acute respiratory failure with hypoxia; I21.A1 Myocardial infarction type 2; K57.32 Diverticulitis of large intestine without perforation or abscess without bleeding; I16.0 Hypertensive urgency; I50.21 Acute systolic (congestive) heart failure; I25.10 Atherosclerotic heart disease of native coronary artery without angina pectoris; Z95.5 Presence of coronary angioplasty implant and graft; Z95.2 Presence of prosthetic heart valve; F17.210 Nicotine dependence, cigarettes, uncomplicated; Z95.1 Presence of aortocoronary bypass graft; E87.6 Hypokalemia
CPT/HCPCS: 99223-AI; 99232-AI; 99239; J0744; J1170; J1650; J1940; J2270; J3480; J7050; Q9967

== ENCOUNTER 2018-03-22 10:00 | Outpatient (RCR) | payer MEDICAID ==
[2018-03-24] MEDS ORDERED: CIPRO 500MG TA500 MG PO (14:10)
[2018-03-24] MEDS ORDERED: FLAGYL500 MG PO (14:10)
[2018-03-24] MEDS ORDERED: ASPIRIN 81M81 MG/TA2 PO (14:12)
[2018-03-24] MEDS ORDERED: LASIX 20MG TABL20 MG PO (14:12)
[2018-04-24] MEDS ORDERED: NEURONTIN300 MG/CAP PO (21:26)
== END 2018-05-01 10:55 | disposition home or self-care (01) ==
LOC: WSPT 10:00
DX: M50.10 Cervical disc disorder with radiculopathy, unspecified cervical region (principal); M96.1 Postlaminectomy syndrome, not elsewhere classified

== ENCOUNTER → 2018-04-07 | Outpatient (CLI) | payer BC ==
[~2018-04-07] MED LIST changes: +ASPIRIN 81M81 MG/TA2 PO; +CIPRO 500MG TA500 MG PO; +FLAGYL500 MG PO
[2018-04-07 18:18] LABS: HEMATOCRIT 44.2 % (42.0-52.0); HEMOGLOBIN 15.2 g/dl (13.5-18.0); MEAN CELL VOLUME 90 fl (80.0-100.0); MEAN CORPUSCULAR HEMOGLOBIN 31 pg (27.0-31.0); MEAN CORPUSCULAR HGB CONC 34 g/dl (33.0-37.0); MEAN PLATELET VOLUME 9.5 fl (7.4-10.4); PLATELET COUNT 265 K/mm3 (130-400); REDCELL DISTRIBUTION WIDTH-CV 13.6 % (11.5-14.5)
[2018-04-07 18:27] LABS: CALCIUM 9.2 mg/dL (8.4-10.2); CREATININE, serum 0.82 mg/dL (0.66-1.25); POTASSIUM 3.9 mmol/L (3.4-5.0)
== END ==
LOC: COL.LAB 18:01
PROVIDERS: Internal Medicine Interventional Cardiology
DX: I70.213 Atherosclerosis of native arteries of extremities with intermittent claudication, bilateral legs (principal)

== ENCOUNTER → 2018-04-23 | Outpatient (CLI) | payer MEDICAID ==
[~2018-04-23] MED LIST changes: +NEURONTIN300 MG/CAP PO
== END ==
LOC: COL.RAD 07:54
DX: I70.213 Atherosclerosis of native arteries of extremities with intermittent claudication, bilateral legs (principal); I72.3 Aneurysm of iliac artery; Z95.828 Presence of other vascular implants and grafts
CPT/HCPCS: Q9967

== ENCOUNTER 2018-04-24 19:40 | Emergency (ER) | payer MEDICAID ==
[~2018-04-24 19:40] MED LIST changes: -NEURONTIN300 MG/CAP PO
[2018-04-24 19:42] VITALS: TEMP 98.4
[2018-04-24 20:07] LABS: BASO # 0.1 (0.0-0.2); EOS # 0.7 (0.0-0.7); EOS % 8.8 % (0-4.0); GRAN # 4.1 (1.4-6.5); GRAN % 51.2 % (42.2-75.2); HEMATOCRIT 45.4 % (42.0-52.0); HEMOGLOBIN 15.4 g/dl (13.5-18.0); LYMPH # 2.5 (1.2-3.4); LYMPH % 30.8 % (20.0-51.0); MEAN CELL VOLUME 92 fl (80.0-100.0); MEAN CORPUSCULAR HEMOGLOBIN 31 pg (27.0-31.0); MEAN CORPUSCULAR HGB CONC 34 g/dl (33.0-37.0); MEAN PLATELET VOLUME 9.9 fl (7.4-10.4); MONO # 0.6 (0.1-0.6); MONO % 7.8 % (1.7-9.3); PLATELET COUNT 264 K/mm3 (130-400); RED BLOOD COUNT 4.94 M/mm3 (4.20-5.60)
[2018-04-24 20:13] LABS: INR 1.1 (0.8-3.0)
[2018-04-24 20:16] LABS: PARTIAL THROMBOPLASTIN TIME 31.6 SECONDS (26.0-37.0)
[2018-04-24 20:20] LABS: ALANINE AMINOTRANSFERASE 35 U/L (21-72); ALKALINE PHOSPHATASE 56 U/L (50-136); ANION GAP 13 mmol/L (7-16); AST,SGOT 59 U/L (15-37); BILIRUBIN,TOTAL 0.5 mg/dL (0.0-1.0); BLOOD UREA NITROGEN 13 mg/dL (9-20); C-REACTIVE PROTEIN < 0.5 mg/dL (0.0-0.9); CALCIUM 9.4 mg/dL (8.4-10.2); CARBON DIOXIDE 26 mmol/L (22-30); CHLORIDE 103 mmol/L (98-107); CREATININE, serum 1.07 mg/dL (0.66-1.25); GLUCOSE 173 mg/dL (74-106); LIPASE 191 U/L (23-300); POTASSIUM 3.8 mmol/L (3.4-5.0); SODIUM 142 mmol/L (137-145); TOTAL PROTEIN 8.6 gm/dL (6.4-8.2)
[2018-04-24 20:54] LABS: COLLECTION METHOD CLEAN CATCH
[2018-04-24 20:59] LABS: MUCOUS Present /lpf; PH 5 (5-8); SQUAMOUS EPITHELIAL None Seen /hpf; URINE APPEARANCE Clear; URINE BACTERIA None Seen /hpf; URINE BILIRUBIN Negative (NEGATIVE); URINE BLOOD Negative (NEGATIVE); URINE COLOR Yellow; URINE GLUCOSE Negative (NEGATIVE); URINE KETONE Trace (NEGATIVE); URINE LEUKOCYTE ESTERASE Negative (NEGATIVE); URINE NITRATE Negative (NEGATIVE); URINE PROTEIN(semi-quant) Negative (NEGATIVE); URINE RBC 0-2 /hpf; URINE UROBILINOGEN Negative (NEGATIVE)
[2018-04-24 21:26] VITALS: BP 147/936; PULSE 75
[2018-04-24] MEDS ORDERED: NEURONTIN300 MG/CAP PO (21:26)
== END 2018-04-24 21:42 | disposition home or self-care (01) ==
LOC: COL.ER 19:40
PROVIDERS: Emergency Medicine
DX: M79.2 Neuralgia and neuritis, unspecified (principal); I25.10 Atherosclerotic heart disease of native coronary artery without angina pectoris; I10 Essential (primary) hypertension; I73.9 Peripheral vascular disease, unspecified; Z90.49 Acquired absence of other specified parts of digestive tract; Z79.82 Long term (current) use of aspirin; Z79.02 Long term (current) use of antithrombotics/antiplatelets
CPT/HCPCS: J1170

== ENCOUNTER → 2018-05-17 | Outpatient (CLI) | payer MEDICAID ==
[~2018-05-17] MED LIST changes: +NEURONTIN300 MG/CAP PO
== END ==
LOC: MHCPAIN 14:37
DX: G89.29 Other chronic pain (principal); M50.90 Cervical disc disorder, unspecified, unspecified cervical region; M54.12 Radiculopathy, cervical region; M54.81 Occipital neuralgia; R51 Headache; M96.1 Postlaminectomy syndrome, not elsewhere classified
CPT/HCPCS: G0463

== ENCOUNTER 2018-05-26 22:15 | Emergency (ER) | payer MEDICAID ==
[~2018-05-26] VITALS: Ht 177.8 cm; Wt 109.1 kg
[2018-05-26 22:21] VITALS: TEMP 97.9
[2018-05-26] MEDS ORDERED: OMEGA-3 FISH1000 MG PO (23:31)
[2018-05-27 00:35] VITALS: BP 115/76; PULSE 79
== END 2018-05-27 00:35 | disposition home or self-care (01) ==
LOC: COL.ER 22:15
DX: S09.90XA Unspecified injury of head, initial encounter (principal); S00.93XA Contusion of unspecified part of head, initial encounter; I10 Essential (primary) hypertension; F17.210 Nicotine dependence, cigarettes, uncomplicated; Z79.82 Long term (current) use of aspirin; Z79.891 Long term (current) use of opiate analgesic; W39.XXXA Discharge of firework, initial encounter; Y92.009 Unspecified place in unspecified non-institutional (private) residence as the place of occurrence of the external cause

== ENCOUNTER 2018-05-30 20:01 | Inpatient (IN) | payer MEDICAID ==
[~2018-05-30] VITALS: Ht 177.8 cm; Wt 109.6 kg
[~2018-05-30 20:01] MED LIST changes: +OMEGA-3 FISH1000 MG PO
[2018-05-30 20:21] LABS: BASO # 0.1 (0.0-0.2); BASO % 0.8 % (0.0-2.0); EOS # 0.3 (0.0-0.7); EOS % 5.1 % (0-4.0); GRAN # 3.7 (1.4-6.5); GRAN % 57.6 % (42.2-75.2); HEMOGLOBIN 14.6 g/dl (13.5-18.0); LYMPH # 1.9 (1.2-3.4); LYMPH % 29.5 % (20.0-51.0); MEAN CELL VOLUME 89 fl (80.0-100.0); MEAN CORPUSCULAR HEMOGLOBIN 30 pg (27.0-31.0); MEAN CORPUSCULAR HGB CONC 34 g/dl (33.0-37.0); MEAN PLATELET VOLUME 9.4 fl (7.4-10.4); MONO # 0.4 (0.1-0.6); MONO % 6.4 % (1.7-9.3); PLATELET COUNT 209 K/mm3 (130-400); RED BLOOD COUNT 4.82 M/mm3 (4.20-5.60); REDCELL DISTRIBUTION WIDTH-CV 12.3 % (11.5-14.5)
[2018-05-30 20:41] LABS: COLLECTION METHOD CLEAN CATCH
[2018-05-30 20:41] LABS: ALANINE AMINOTRANSFERASE 48 U/L (21-72); ALBUMIN 3.7 gm/dL (3.5-5.0); ALCOHOL(ethanol),MEDICAL 135 mg/dL; ALKALINE PHOSPHATASE 36 U/L (50-136); ANION GAP 14 mmol/L (7-16); AST,SGOT 55 U/L (15-37); BILIRUBIN,TOTAL 0.3 mg/dL (0.0-1.0); BLOOD UREA NITROGEN 13 mg/dL (9-20); CALCIUM 9.1 mg/dL (8.4-10.2); CARBON DIOXIDE 20 mmol/L (22-30); CHLORIDE 103 mmol/L (98-107); CREATININE, serum 1.26 mg/dL (0.66-1.25); GLUCOSE 212 mg/dL (74-106); LIPASE 187 U/L (23-300); POTASSIUM 3.4 mmol/L (3.4-5.0); SODIUM 137 mmol/L (137-145); TOTAL PROTEIN 6.8 gm/dL (6.4-8.2)
[2018-05-30 20:54] LABS: ACETAMINOPHEN < 10 ug/mL (10-30); SALICYLATE < 1.0 mg/dL
[2018-05-30 20:58] LABS: HYALINE CAST >12 /lpf; MUCOUS Present /lpf; PH 5 (5-8); SQUAMOUS EPITHELIAL 0-2 /hpf; URINE APPEARANCE Clear; URINE BACTERIA None Seen /hpf; URINE BILIRUBIN Negative (NEGATIVE); URINE BLOOD Negative (NEGATIVE); URINE COLOR Yellow; URINE GLUCOSE 1+ (NEGATIVE); URINE KETONE Trace (NEGATIVE); URINE LEUKOCYTE ESTERASE Negative (NEGATIVE); URINE NITRATE Negative (NEGATIVE); URINE PROTEIN(semi-quant) Negative (NEGATIVE); URINE RBC 0-2 /hpf
[2018-05-30 21:03] LABS: TRICYCLIC ANTIDEPRESS URINE POSITIVE
[2018-05-30] MEDS ORDERED: SEROQUEL 200MG200 MG PO (21:10)
[2018-05-30 21:42] LABS: MAGNESIUM 1.8 mg/dL (1.6-2.3)
[2018-05-31] VITALS (486 sets, daily range): BP systolic 118–181; BP diastolic 73–111; PULSE 59–69; TEMP 97.6–98.4; O2SAT 85–100
[2018-05-31] MEDS ORDERED: CRESTOR 10MG10 MG PO (01:18)
[2018-05-31] MEDS ORDERED: REMERON 15M15 MG/TA1 PO (01:19)
[2018-05-31 04:48] LABS: BASO % 0.6 % (0.0-2.0); EOS # 0.3 (0.0-0.7); EOS % 6.5 % (0-4.0); GRAN # 2.3 (1.4-6.5); GRAN % 45.7 % (42.2-75.2); HEMATOCRIT 43.1 % (42.0-52.0); HEMOGLOBIN 14.3 g/dl (13.5-18.0); LYMPH % 40.3 % (20.0-51.0); MEAN CELL VOLUME 91 fl (80.0-100.0); MEAN CORPUSCULAR HEMOGLOBIN 30 pg (27.0-31.0); MEAN CORPUSCULAR HGB CONC 33 g/dl (33.0-37.0); MEAN PLATELET VOLUME 9.6 fl (7.4-10.4); MONO # 0.3 (0.1-0.6); MONO % 6.5 % (1.7-9.3); PLATELET COUNT 186 K/mm3 (130-400); RED BLOOD COUNT 4.76 M/mm3 (4.20-5.60); REDCELL DISTRIBUTION WIDTH-CV 12.5 % (11.5-14.5)
[2018-05-31 04:56] LABS: ALANINE AMINOTRANSFERASE 57 U/L (21-72); ALBUMIN 3.5 gm/dL (3.5-5.0); ALKALINE PHOSPHATASE 39 U/L (50-136); ANION GAP 9 mmol/L (7-16); AST,SGOT 51 U/L (15-37); BILIRUBIN,TOTAL 0.3 mg/dL (0.0-1.0); BLOOD UREA NITROGEN 12 mg/dL (9-20); CALCIUM 8.5 mg/dL (8.4-10.2); CARBON DIOXIDE 25 mmol/L (22-30); CHLORIDE 106 mmol/L (98-107); CREATININE, serum 0.85 mg/dL (0.66-1.25); GLUCOSE 126 mg/dL (74-106); INR 1.1 (0.8-3.0); MAGNESIUM 1.8 mg/dL (1.6-2.3); POTASSIUM 3.7 mmol/L (3.4-5.0); PROTHROMBIN TIME 12.3 SECONDS (9.7-12.8); SODIUM 139 mmol/L (137-145); TOTAL PROTEIN 6.8 gm/dL (6.4-8.2)
[2018-05-31 04:58] LABS: PARTIAL THROMBOPLASTIN TIME 30.4 SECONDS (26.0-37.0)
[2018-05-31 05:10] LABS: TROPONIN-I 3 HR POST INITIAL < 0.012 ng/mL (0.000-0.034)
[2018-05-31] MEDS ORDERED: SEROQUEL 2525 MG/TAB (09:15)
[2018-05-31] MEDS ORDERED: PROTONIX 40MG T40 MG PO (09:15)
[2018-05-31] MEDS ORDERED: NEURONTIN300 MG/CAP PO (09:16)
[2018-05-31] MEDS ORDERED: LASIX 20MG TABL20 MG PO (09:16)
[2018-06-01] VITALS (519 sets, daily range): BP systolic 115–169; BP diastolic 65–110; PULSE 66–94; TEMP 97–98; O2SAT 91–100
[2018-06-01 05:31] LABS: BASO % 0.8 % (0.0-2.0); EOS # 0.4 (0.0-0.7); EOS % 6.8 % (0-4.0); GRAN # 2.7 (1.4-6.5); GRAN % 52.1 % (42.2-75.2); HEMATOCRIT 44.4 % (42.0-52.0); HEMOGLOBIN 15.3 g/dl (13.5-18.0); LYMPH # 1.8 (1.2-3.4); LYMPH % 33.8 % (20.0-51.0); MEAN CELL VOLUME 89 fl (80.0-100.0); MEAN CORPUSCULAR HEMOGLOBIN 31 pg (27.0-31.0); MEAN CORPUSCULAR HGB CONC 35 g/dl (33.0-37.0); MEAN PLATELET VOLUME 9.8 fl (7.4-10.4); MONO # 0.3 (0.1-0.6); MONO % 5.9 % (1.7-9.3); PLATELET COUNT 201 K/mm3 (130-400); RED BLOOD COUNT 4.98 M/mm3 (4.20-5.60); REDCELL DISTRIBUTION WIDTH-CV 12.5 % (11.5-14.5)
[2018-06-01 05:39] LABS: CALCIUM 9.5 mg/dL (8.4-10.2); CREATININE, serum 0.79 mg/dL (0.66-1.25); POTASSIUM 3.7 mmol/L (3.4-5.0)
[2018-06-01] MEDS ORDERED: GLUCOPHAGE500 MG/TAB PO (16:54)
== END 2018-06-01 17:40 | disposition home or self-care (01) | DRG 918 ==
LOC: COL.ER 20:01 → ICU 23:22
PROVIDERS: Emergency Medicine; Hospitalist; Nurse Practitioner Family
DX: T43.592A Poisoning by other antipsychotics and neuroleptics, intentional self-harm, initial encounter (principal); I50.22 Chronic systolic (congestive) heart failure; I42.2 Other hypertrophic cardiomyopathy; N17.9 Acute kidney failure, unspecified; T51.0X2A Toxic effect of ethanol, intentional self-harm, initial encounter; I11.0 Hypertensive heart disease with heart failure; Z95.5 Presence of coronary angioplasty implant and graft; Z95.1 Presence of aortocoronary bypass graft; Z95.2 Presence of prosthetic heart valve; I25.10 Atherosclerotic heart disease of native coronary artery without angina pectoris; Z95.0 Presence of cardiac pacemaker; F17.210 Nicotine dependence, cigarettes, uncomplicated; F10.129 Alcohol abuse with intoxication, unspecified; Y90.6 Blood alcohol level of 120-199 mg/100 ml; Z86.73 Personal history of transient ischemic attack (TIA), and cerebral infarction without residual deficits; Z79.01 Long term (current) use of anticoagulants; F41.1 Generalized anxiety disorder; F31.9 Bipolar disorder, unspecified; E11.9 Type 2 diabetes mellitus without complications
CPT/HCPCS: OP; 99223-AI; 99239; A9502; C9113; J0360; J1644; J2550; J2785; J3411; J3475; J7030

== ENCOUNTER → 2018-07-19 | Outpatient (CLI) | payer MEDICAID ==
[~2018-07-19] MED LIST changes: +CRESTOR 10MG10 MG PO; +GLUCOPHAGE500 MG/TAB PO; +SEROQUEL 2525 MG/TAB
== END ==
LOC: MHCPAIN 09:10
DX: G89.29 Other chronic pain (principal); M50.90 Cervical disc disorder, unspecified, unspecified cervical region; M54.12 Radiculopathy, cervical region
CPT/HCPCS: G0463

== ENCOUNTER → 2018-09-14 | Outpatient (CLI) | payer MEDICAID | LOC: MHCPAIN 09:17 | DX: G89.29 Other chronic pain (principal); M50.90 Cervical disc disorder, unspecified, unspecified cervical region; M54.12 Radiculopathy, cervical region | CPT/HCPCS: G0463 ==

== ENCOUNTER → 2018-09-30 | Outpatient (CLI) | payer MEDICAID | LOC: MHCPAIN 10:57 | DX: M54.12 Radiculopathy, cervical region (principal); M50.90 Cervical disc disorder, unspecified, unspecified cervical region ==

== ENCOUNTER → 2018-11-04 | Outpatient (CLI) | payer MEDICAID | LOC: MHCPAIN 10-28 14:19 | DX: M50.90 Cervical disc disorder, unspecified, unspecified cervical region (principal); M54.12 Radiculopathy, cervical region ==

== ENCOUNTER → 2018-11-10 | Outpatient (CLI) | payer MEDICAID | LOC: MHCPAIN 09:52 | DX: G89.29 Other chronic pain (principal); M54.81 Occipital neuralgia; R51 Headache; M47.812 Spondylosis without myelopathy or radiculopathy, cervical region; M96.1 Postlaminectomy syndrome, not elsewhere classified | CPT/HCPCS: G0463 ==

== ENCOUNTER → 2018-11-29 | Outpatient (CLI) | payer MEDICAID | LOC: MHCPAIN 11:55 | DX: M50.90 Cervical disc disorder, unspecified, unspecified cervical region (principal); M54.12 Radiculopathy, cervical region; R51 Headache ==

== ENCOUNTER → 2018-12-07 | Outpatient (CLI) | payer MEDICAID | LOC: MHCPAIN 10:52 | DX: G89.29 Other chronic pain (principal); M54.81 Occipital neuralgia; R51 Headache; M47.812 Spondylosis without myelopathy or radiculopathy, cervical region; M96.1 Postlaminectomy syndrome, not elsewhere classified | CPT/HCPCS: G0463 ==

== ENCOUNTER → 2019-01-11 | Outpatient (CLI) | payer MEDICAID | LOC: MHCPAIN 10:07 | DX: G89.29 Other chronic pain (principal); M54.81 Occipital neuralgia; R51 Headache; M47.812 Spondylosis without myelopathy or radiculopathy, cervical region; M96.1 Postlaminectomy syndrome, not elsewhere classified | CPT/HCPCS: G0463 ==

== ENCOUNTER 2019-02-24 13:22 | Emergency (ER) | payer MEDICAID ==
[~2019-02-24] VITALS: Ht 177.8 cm; Wt 100.5 kg
[2019-02-24 13:59] LABS: COLLECTION METHOD CLEAN CATCH
[2019-02-24 14:05] LABS: BASO # 0.1 (0.0-0.2); BASO % 0.8 % (0.0-2.0); EOS # 0.5 (0.0-0.7); EOS % 6.9 % (0-4.0); GRAN # 4.2 (1.4-6.5); GRAN % 64.3 % (42.2-75.2); HEMATOCRIT 46.7 % (42.0-52.0); HEMOGLOBIN 15.9 g/dl (13.5-18.0); LYMPH # 1.4 (1.2-3.4); LYMPH % 20.7 % (20.0-51.0); MEAN CELL VOLUME 89 fl (80.0-100.0); MEAN CORPUSCULAR HEMOGLOBIN 30 pg (27.0-31.0); MEAN CORPUSCULAR HGB CONC 34 g/dl (33.0-37.0); MEAN PLATELET VOLUME 9.6 fl (7.4-10.4); MONO # 0.5 (0.1-0.6); PLATELET COUNT 223 K/mm3 (130-400); RED BLOOD COUNT 5.26 M/mm3 (4.20-5.60); REDCELL DISTRIBUTION WIDTH-CV 12.5 % (11.5-14.5)
[2019-02-24 14:06] LABS: PH 6 (5-8); SQUAMOUS EPITHELIAL None Seen /hpf; URINE APPEARANCE Clear; URINE BACTERIA None Seen /hpf; URINE BILIRUBIN Negative (NEGATIVE); URINE BLOOD Negative (NEGATIVE); URINE COLOR Yellow; URINE GLUCOSE Negative (NEGATIVE); URINE KETONE Negative (NEGATIVE); URINE LEUKOCYTE ESTERASE Negative (NEGATIVE); URINE NITRATE Negative (NEGATIVE); URINE PROTEIN(semi-quant) Negative (NEGATIVE); URINE RBC 0-2 /hpf; URINE UROBILINOGEN Negative (NEGATIVE)
[2019-02-24 14:16] LABS: TRICYCLIC ANTIDEPRESS URINE NEGATIVE
[2019-02-24 14:17] LABS: ALANINE AMINOTRANSFERASE 23 U/L (21-72); ALBUMIN 4.4 gm/dL (3.5-5.0); ALKALINE PHOSPHATASE 43 U/L (50-136); ANION GAP 11 mmol/L (7-16); AST,SGOT 55 U/L (15-37); BILIRUBIN,TOTAL 0.6 mg/dL (0.0-1.0); BLOOD UREA NITROGEN 15 mg/dL (9-20); CARBON DIOXIDE 25 mmol/L (22-30); CHLORIDE 102 mmol/L (98-107); CREATININE, serum 0.88 (0.66-1.25); GLUCOSE 159 mg/dL (74-106); POTASSIUM 3.6 mmol/L (3.4-5.0); SODIUM 138 mmol/L (137-145); TOTAL PROTEIN 8.5 gm/dL (6.4-8.2)
[2019-02-24 14:23] LABS: ACETAMINOPHEN < 10 ug/mL (10-30); ALCOHOL(ethanol),MEDICAL < 10 mg/dL; SALICYLATE < 1.0 mg/dL
[2019-02-24 18:45] VITALS: TEMP 98
[2019-02-24 22:04] VITALS: BP 140/89; PULSE 75
== END 2019-02-24 22:05 ==
LOC: COL.ER 13:22
PROVIDERS: Emergency Medicine
DX: R45.851 Suicidal ideations (principal); F32.9 Major depressive disorder, single episode, unspecified; Z90.49 Acquired absence of other specified parts of digestive tract; F17.210 Nicotine dependence, cigarettes, uncomplicated; Z79.82 Long term (current) use of aspirin; Z79.84 Long term (current) use of oral hypoglycemic drugs; Z79.02 Long term (current) use of antithrombotics/antiplatelets

== ENCOUNTER → 2019-03-21 | Outpatient (REF) ==
[2019-03-21 14:41] LABS: THYROID STIMULATING HORMONE 2.13 uIU/mL (0.465-4.680)
[2019-03-21 14:48] LABS: PSA-TOTAL 2.93 ng/mL (0-4)
== END ==
LOC: ZLAB.WCH 13:52
PROVIDERS: Internal Medicine
DX: Z01.89 Encounter for other specified special examinations (principal)
CPT/HCPCS: G0103

== ENCOUNTER → 2019-03-22 | Outpatient (CLI) | payer MEDICAID | LOC: MHCPAIN 10:46 | DX: G89.29 Other chronic pain (principal); M54.81 Occipital neuralgia; R51 Headache; M47.812 Spondylosis without myelopathy or radiculopathy, cervical region; M96.1 Postlaminectomy syndrome, not elsewhere classified | CPT/HCPCS: G0463 ==

== ENCOUNTER → 2019-04-20 | Outpatient (CLI) | payer MEDICAID | LOC: MHCPAIN 11:06 | DX: G89.29 Other chronic pain (principal); M47.817 Spondylosis without myelopathy or radiculopathy, lumbosacral region; M54.16 Radiculopathy, lumbar region; M53.3 Sacrococcygeal disorders, not elsewhere classified | CPT/HCPCS: G0463 ==

== ENCOUNTER → 2019-05-17 | Outpatient (CLI) | payer MEDICAID | LOC: MHCPAIN 11:12 | DX: G89.29 Other chronic pain (principal); M54.12 Radiculopathy, cervical region; M54.81 Occipital neuralgia; R51 Headache; M47.812 Spondylosis without myelopathy or radiculopathy, cervical region | CPT/HCPCS: G0463 ==

== ENCOUNTER 2019-08-17 18:24 | Emergency (ER) | payer MEDICAID ==
[~2019-08-17] VITALS: Ht 177.8 cm; Wt 104.5 kg
[2019-08-17 18:37] VITALS: TEMP 97.2
[2019-08-17 19:29] LABS: BASO # 0.1 (0.0-0.2); BASO % 0.7 % (0.0-2.0); EOS # 0.4 (0.0-0.7); EOS % 5.4 % (0-4.0); GRAN # 4.7 (1.4-6.5); GRAN % 60.8 % (42.2-75.2); HEMATOCRIT 47.9 % (42.0-52.0); LYMPH # 1.9 (1.2-3.4); LYMPH % 24.4 % (20.0-51.0); MEAN CELL VOLUME 87 fl (80.0-100.0); MEAN CORPUSCULAR HEMOGLOBIN 29 pg (27.0-31.0); MEAN CORPUSCULAR HGB CONC 33 g/dl (33.0-37.0); MEAN PLATELET VOLUME 9.9 fl (7.4-10.4); MONO # 0.6 (0.1-0.6); MONO % 8.2 % (1.7-9.3); PLATELET COUNT 171 K/mm3 (130-400); REDCELL DISTRIBUTION WIDTH-CV 12.9 % (11.5-14.5)
[2019-08-17] MEDS ORDERED: ZOLOFT 50MG50 MG PO (19:37)
[2019-08-17 19:44] LABS: INR 1.1 (0.8-3.0)
[2019-08-17 19:47] LABS: PARTIAL THROMBOPLASTIN TIME 32.1 SECONDS (26.0-37.0)
[2019-08-17 19:48] LABS: ALBUMIN 4.3 gm/dL (3.5-5.0); BILIRUBIN,TOTAL 0.4 mg/dL (0.0-1.0); CALCIUM 9.3 mg/dL (8.4-10.2); CREATININE, serum 0.69 (0.66-1.25); POTASSIUM 3.8 mmol/L (3.4-5.0); TOTAL PROTEIN 8.5 gm/dL (6.4-8.2)
[2019-08-17] MEDS ORDERED: FLAGYL500 MG PO (20:56)
[2019-08-17] MEDS ORDERED: CIPRO 500MG TA500 MG PO (20:56)
[2019-08-17 21:20] VITALS: BP 145/93; PULSE 121
== END 2019-08-17 21:29 | disposition home or self-care (01) ==
LOC: COL.ER 18:24
PROVIDERS: Emergency Medicine
DX: K57.92 Diverticulitis of intestine, part unspecified, without perforation or abscess without bleeding (principal); I10 Essential (primary) hypertension; I25.2 Old myocardial infarction; E78.5 Hyperlipidemia, unspecified; F17.210 Nicotine dependence, cigarettes, uncomplicated; Z86.73 Personal history of transient ischemic attack (TIA), and cerebral infarction without residual deficits; Z95.1 Presence of aortocoronary bypass graft; Z95.0 Presence of cardiac pacemaker; Z79.82 Long term (current) use of aspirin
CPT/HCPCS: J2405; J3010; J7030; Q9967

== ENCOUNTER 2019-08-24 19:13 | Inpatient (IN) | payer MEDICAID ==
[~2019-08-24] VITALS: Ht 177.8 cm; Wt 104.7 kg
[~2019-08-24 19:13] MED LIST changes: +ZOLOFT 50MG50 MG PO
[2019-08-24 20:38] LABS: BASO # 0.1 (0.0-0.2); BASO % 0.9 % (0.0-2.0); EOS # 0.6 (0.0-0.7); EOS % 6.7 % (0-4.0); GRAN # 5.4 (1.4-6.5); GRAN % 59.2 % (42.2-75.2); HEMATOCRIT 48.2 % (42.0-52.0); HEMOGLOBIN 15.8 g/dl (13.5-18.0); LYMPH # 2.3 (1.2-3.4); LYMPH % 25.4 % (20.0-51.0); MEAN CELL VOLUME 88 fl (80.0-100.0); MEAN CORPUSCULAR HEMOGLOBIN 29 pg (27.0-31.0); MEAN CORPUSCULAR HGB CONC 33 g/dl (33.0-37.0); MEAN PLATELET VOLUME 10.4 fl (7.4-10.4); MONO # 0.7 (0.1-0.6); MONO % 7.6 % (1.7-9.3); PLATELET COUNT 177 K/mm3 (130-400); RED BLOOD COUNT 5.48 M/mm3 (4.20-5.60)
[2019-08-24 20:47] LABS: BILIRUBIN,TOTAL 0.3 mg/dL (0.0-1.0); C-REACTIVE PROTEIN 0.8 mg/dL (0.0-0.9); CALCIUM 9.5 mg/dL (8.4-10.2); CREATININE, serum 0.75 (0.66-1.25); POTASSIUM 3.5 mmol/L (3.4-5.0)
[2019-08-24 21:08] LABS: COLLECTION METHOD CLEAN CATCH
[2019-08-24 21:14] LABS: MUCOUS Present /lpf; PH 6 (5-8); SQUAMOUS EPITHELIAL None Seen /hpf; URINE APPEARANCE Clear; URINE BACTERIA None Seen /hpf; URINE BILIRUBIN Negative (NEGATIVE); URINE BLOOD Negative (NEGATIVE); URINE COLOR Yellow; URINE GLUCOSE Negative (NEGATIVE); URINE KETONE Negative (NEGATIVE); URINE LEUKOCYTE ESTERASE Negative (NEGATIVE); URINE NITRATE Negative (NEGATIVE); URINE PROTEIN(semi-quant) Negative (NEGATIVE); URINE RBC 0-2 /hpf; URINE UROBILINOGEN Negative (NEGATIVE)
[2019-08-25 00:25] VITALS: BP 171/91; PULSE 77; TEMP 98.3
[2019-08-25 00:30] LABS: INR 1.2 (0.8-3.0); PROTHROMBIN TIME 13.9 SECONDS (9.7-12.8)
[2019-08-25] MEDS ORDERED: IMDUR 60MG60 MG/TAB PO (01:12)
[2019-08-25] MEDS ORDERED: TOPROL XL100 MG PO (01:13)
[2019-08-25] MEDS ORDERED: PRINIVIL20 MG PO (01:14)
[2019-08-25] MEDS ORDERED: COUMADIN 5MG5 MG/TAB PO (01:15)
[2019-08-25] MEDS ORDERED: MELATONIN5 M1 SL (01:16)
[2019-08-25] MEDS ORDERED: ATARAX 25MG25 MG/TAB PO (01:16)
[2019-08-25 03:52] VITALS: BP 166/94; PULSE 61; TEMP 98
[2019-08-25 06:15] LABS: BASO # 0.1 (0.0-0.2); BASO % 0.8 % (0.0-2.0); EOS # 0.5 (0.0-0.7); EOS % 6.3 % (0-4.0); GRAN # 5.4 (1.4-6.5); GRAN % 63.9 % (42.2-75.2); HEMATOCRIT 48.3 % (42.0-52.0); HEMOGLOBIN 15.8 g/dl (13.5-18.0); LYMPH # 1.8 (1.2-3.4); LYMPH % 21.1 % (20.0-51.0); MEAN CELL VOLUME 88 fl (80.0-100.0); MEAN CORPUSCULAR HEMOGLOBIN 29 pg (27.0-31.0); MEAN CORPUSCULAR HGB CONC 33 g/dl (33.0-37.0); MEAN PLATELET VOLUME 10.3 fl (7.4-10.4); MONO # 0.6 (0.1-0.6); MONO % 7.5 % (1.7-9.3); PLATELET COUNT 163 K/mm3 (130-400); RED BLOOD COUNT 5.47 M/mm3 (4.20-5.60)
[2019-08-25 06:28] LABS: ALBUMIN 3.8 gm/dL (3.5-5.0); BILIRUBIN,TOTAL 0.3 mg/dL (0.0-1.0); CALCIUM 8.9 mg/dL (8.4-10.2); CREATININE, serum 0.69 (0.66-1.25); MAGNESIUM 2.1 mg/dL (1.6-2.3); POTASSIUM 3.8 mmol/L (3.4-5.0); TOTAL PROTEIN 7.5 gm/dL (6.4-8.2)
[2019-08-25 07:17] VITALS: BP 162/96; BP 169/88; PULSE 67; TEMP 98.4
--- NOTE | 2019-08-25 07:52 | NUR ---
Pt admitted from ER with INT intact to R FA. Flushes without difficulty. Jennifer in to assess pt. Med req reviewed with pt. NS started and infusing at 100mL/hr. Dilaudid 0.25mg given for low abdominal pain. Mag 2gm hung to infuse at 25mL/hr and then started Potassium at 100mL/hr but pt c/o burning so rate decreased to 75mL/hr and cont. to burn so rate to 50mL/hr. NPO as ordered. Has surgery consult and GI consult this AM. Second dose of Dilaudid given for pain rated 6/10. Rest in bed watching movies and playing games. Call light within reach.
[2019-08-25 11:52] VITALS: BP 149/74; PULSE 61; TEMP 97.8
--- NOTE | 2019-08-25 13:47 | NUR ---
SW met with the patient to discuss discharge plan. The patient lives in [place] with his , Hattie (ph#[phone]). He reports independence with ADLs and has a cane and walker. The patient's PCP is Dr. Peter Robles and he receives his medications at [facility]. He reports occasional difficulties affording his meds. He states that he has started talking to his PCP about cheaper versions of his meds. SW also discussed GoodRx. The patient's advanced directives are in EMR. His DPOA-HC is his . The patient plans to return back home with his upon discharge. SW to continue to follow.
--- NOTE | 2019-08-25 15:00 | NUR ---
PT'S CALLED FOR AN UPDATE, INFORMED HER WELL THE PT OF THE NEGATIVE C-DIFF CULTURE. PT AND SPOUSE SAID THEY WERE VERY HAPPY AND RELIEVED. PT CONTINUES TO HAVE PAIN AND ASKS FOR PAIN MEDICATION EVERY TWO HOURS.
[2019-08-25 16:42] VITALS: BP 140/89; PULSE 63; TEMP 97.6
--- NOTE | 2019-08-25 16:48 | NUR ---
PT RESTING IN HIS ROOM WITH SPOUSE. NO COMPLAINTS OF SEVERE PAIN. HE RATES HIS PAIN AT A 2. CALL LIGHT AND PHONE WITHIN REACH, VS WNL. NO CONCERNS AT THIS TIME.
[2019-08-25 19:31] VITALS: BP 150/83; PULSE 61; TEMP 97.8
--- NOTE | 2019-08-25 21:00 | NUR ---
Initial shift assessment done- states abd pain 06/01,giving Dilaudid IV for pain control-- requesting every 2 hours, no nausea-only wants ice chips at this time Tele on, IV fluids of NS at 100cc/hr, Up in chair, steady on feet, Voided 200cc yellow clear urine.
[2019-08-26] VITALS (7 sets, daily range): BP systolic 131–156; BP diastolic 69–85; PULSE 61–69; TEMP 97.6–98.4
--- NOTE | 2019-08-26 06:00 | NUR ---
Did not sleep much last night-- Up in chair this morning- requesting Dilaudid every 2-3 hours during the night for abd pain of 7. No other requests.
[2019-08-26 06:08] LABS: BASO # 0.1 (0.0-0.2); BASO % 1.1 % (0.0-2.0); EOS # 0.5 (0.0-0.7); EOS % 7.9 % (0-4.0); GRAN # 3.5 (1.4-6.5); GRAN % 52.5 % (42.2-75.2); HEMOGLOBIN 14.3 g/dl (13.5-18.0); LYMPH # 1.9 (1.2-3.4); LYMPH % 29.4 % (20.0-51.0); MEAN CELL VOLUME 89 fl (80.0-100.0); MEAN CORPUSCULAR HEMOGLOBIN 29 pg (27.0-31.0); MEAN CORPUSCULAR HGB CONC 33 g/dl (33.0-37.0); MEAN PLATELET VOLUME 10.4 fl (7.4-10.4); MONO # 0.6 (0.1-0.6); MONO % 8.8 % (1.7-9.3); PLATELET COUNT 139 K/mm3 (130-400); RED BLOOD COUNT 4.93 M/mm3 (4.20-5.60); REDCELL DISTRIBUTION WIDTH-CV 12.9 % (11.5-14.5)
[2019-08-26 06:20] LABS: ALBUMIN 3.5 gm/dL (3.5-5.0); BILIRUBIN,TOTAL 0.4 mg/dL (0.0-1.0); CALCIUM 8.4 mg/dL (8.4-10.2); CREATININE, serum 0.6 (0.66-1.25); POTASSIUM 3.9 mmol/L (3.4-5.0)
--- NOTE | 2019-08-26 09:00 | NUR ---
INITIAL; PT IS SITTING IN HIS RECLINER, DOES NOT APPEAR TO BE IN ANY PAIN OR DISCOMFORT, HOWEVER WHEN YOU ASK HIM HIS PAIN IS SIGNIFICANT AND REQUIRES IV DILAUDID. PT WAS GIVEN HIS MORNING MEDICATIONS AND ASSESSMENT IS COMPLETE. NO CONCERNS OTHER THAN REDUCING PAIN MEDICATION FOR PT TO DISCHARGE. TALKED WITH CJ, REGARDING PAIN MEDICATION AND THE POSSIBILITY OF PO MEDICATON FOR HOME PAIN MANAGEMENT. WILL CONTINUE TO MONITOR PAIN AND FOLLOW UP WITH HOSPITALIST. CALL LIGHT AND PHONE WITHIN REACH.
--- NOTE | 2019-08-26 15:00 | NUR ---
Observed physical therapy walking with PT, when asked, pt stated that walking does not bother him and walking does not exacerbate the pain.
--- NOTE | 2019-08-26 16:12 | NUR ---
SARA Ugarte in to see patient. Pt reporting pain to abdomen 5/10, PO pain medication administered. Diet advancement verbalized to patient who verbalizes understanding and is in agreement. Denies N/V. IVF dc'd.
--- NOTE | 2019-08-26 18:31 | NUR ---
PT CALLED ABOUT PO PAIN MEDICATIONS NOT WORKING. PT STATED "THE PAIN IS JUST SO SEVERE, WHAT I WAS GIVEN JUST DIDN'T TOUCH IT." RN CONTACTED JENY TO GET A NEW ORDER FOR ORAL PAIN MANAGEMENT. IN PT HOME MEDICATIONS IT IS NOTED THAT HE TAKES PERCOCET 5/325 Q6H PRN FOR PAIN MANAGEMENT. JENY AGREED THAT WE CAN ORDER THAT A PAIN MANAGEMENT MEDICATION. PT IS AGREEABLE, HOWEVER FEELS HE MAY NEED SOMETHING STRONGER AND HAS MENTIONED SEVERAL TIMES IN CONVERSATION PO DILAUDID. PT WAS GIVEN THE PERCOCET AND THEN PROMPTLY ASKED HOW OFTEN HE CAN HAVE IT. I DID LET HIM KNOW THAT IT IS PRN Q4H. PT IS AT BEDSIDE AND IS UPSET AND AGITATED REGARDING THE PAIN MANAGEMENT AND STATED "HE SHOULD BE GETTING SOMETHING MUCH STRONGER LIKE ORAL DILAUDED, WE KNOW THERE ARE SO MANY PAIN MEDICATIONS OUT THERE THAT HE SHOULD BE ABLE TO HAVE, WHY AREN'T THE DOCTORS WILLING TO GIVE IT TO HIM?" MRS. VENCES APPROACHED THE DESK, AND REITERATED THAT SHE IS FRUSTRATED WITH HER HUSBANDS PAIN AND FEELS SOMETHING MORE SHOULD BE DONE WITH IT. SHE ASSURED US THAT IT'S NOT ADDICTION, THAT IT IS PAIN. PT WILL CONTINUE ON THE PO PERCOCET THROUGH TONIGHT, AND RN WILL REASSESS THROUGH THE NIGHT.
--- NOTE | 2019-08-26 21:32 | NUR ---
Walked in to pt room and he is sound asleep. Resp 18 and unlabored. IV fluids infusing at 100mL/hr. Awakens to verbal stimuli. Asking for pain med explained it is an hour early.
--- NOTE | 2019-08-27 00:21 | NUR ---
Up ad santa in room to void per urinal. 650mL clear, yellow urine. Reports pain at 5-6/10. Request and given Percocet 1 tab. Rest in bed quietly.
[2019-08-27 03:58] VITALS: BP 135/68; PULSE 60; TEMP 97.6
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
--- NOTE | 2019-08-27 06:17 | NUR ---
Pt has rested quietly between times of oral pain meds given. Medicated x2 with 1 tab of Percocet each time. Voids per urinal. Call light within reach.
[2019-08-27 06:59] LABS: BASO # 0.1 (0.0-0.2); BASO % 0.9 % (0.0-2.0); EOS # 0.4 (0.0-0.7); EOS % 8.3 % (0-4.0); GRAN # 3.1 (1.4-6.5); GRAN % 57.4 % (42.2-75.2); HEMATOCRIT 47.1 % (42.0-52.0); HEMOGLOBIN 15.7 g/dl (13.5-18.0); LYMPH # 1.3 (1.2-3.4); LYMPH % 24.2 % (20.0-51.0); MEAN CELL VOLUME 87 fl (80.0-100.0); MEAN CORPUSCULAR HEMOGLOBIN 29 pg (27.0-31.0); MEAN CORPUSCULAR HGB CONC 33 g/dl (33.0-37.0); MEAN PLATELET VOLUME 10.4 fl (7.4-10.4); MONO # 0.5 (0.1-0.6); MONO % 8.6 % (1.7-9.3); PLATELET COUNT 142 K/mm3 (130-400); RED BLOOD COUNT 5.41 M/mm3 (4.20-5.60); REDCELL DISTRIBUTION WIDTH-CV 12.8 % (11.5-14.5)
[2019-08-27 07:15] LABS: CREATININE, serum 0.66 (0.66-1.25); POTASSIUM 3.7 mmol/L (3.4-5.0)
[2019-08-27 07:23] VITALS: BP 167/89; PULSE 64; TEMP 97.8
--- NOTE | 2019-08-27 08:08 | NUR ---
Pt alert and oriented and requested pain med for pain 5/10 in abdomen. Pt states he is hungry. Pt IV patent and no redness or infiltration with fluids running per orders. Pt took PRN and AM meds with some water with no difficulty. Pt has call light in reach and denies further needs at this time.
[2019-08-27 11:36] VITALS: BP 141/77; PULSE 60; TEMP 98.1
--- NOTE | 2019-08-27 14:37 | NUR ---
Pt up walking in the hallway. Pt states pain is tolerable at this time. Pt wants to keep walking in hallway and then after back to room pt wants pain medication.
[2019-08-27 16:16] VITALS: BP 156/78; PULSE 60; TEMP 98.2
--- NOTE | 2019-08-27 17:39 | NUR ---
Pt alert and oriented. Pt tolerating clear liquids without N/V/D. Pt pain managed with PRN Percocet and Dilaudid. Pt states the Percocet has more of a sedative affect on him and the Dilaudid actually takes away the pain. Pt encouraged to go slowly with the clear liquids until pain decreases. Pt has call light in reach and IV patent.
[2019-08-27 19:24] VITALS: BP 153/77; PULSE 64; TEMP 97.9
--- NOTE | 2019-08-27 21:00 | NUR ---
Patient assessed at this time. Alert and oriented x 4, and able to make needs known. Reported pain to be a 7. Given PRN Dilaudid as requested. Peripheral IV to right forearm. Fluids running per orders. Site is without redness, warmth, swelling, and pain. Denies SOB and dyspnea. Respirations even and unlabored. LS CTA. HRR. Telemetry in place-paced. Capillary refill less than 3 seconds. Non-tenting skin turgor. BSAx4. Continues to have pain to abdomen. No edema. Voices no other questions, needs, or concerns at this time. Sitting up in recliner watching TV. Call light is within reach.
[2019-08-27 23:34] VITALS: BP 144/68; PULSE 65; TEMP 97.8
--- NOTE | 2019-08-28 01:53 | NUR ---
Patient given PRN Percocet for level 7 pain around 2340. Patient Called again around 0120 requesting PRN Dilaudid. Given per orders for level 7 pain. Voices no other questions, needs, or concerns at this time. Resting in bed with call light within reach.
[2019-08-28 03:42] VITALS: BP 139/68; PULSE 61; TEMP 97.9
--- NOTE | 2019-08-28 06:01 | NUR ---
Patient given PRN Percocet around 0545 for level 7 pain to abdomen. Voices no other questions, needs, or concerns at this time. Resting in bed with call light within reach.
--- NOTE | 2019-08-28 06:34 | NUR ---
Patient continues to have level 6 pain to abdomen. Given 2nd Percocet as requested at this time. Voices no other questions, needs, or concerns. Stated that he was able to sleep better last night. Sitting up in recliner watching TV at this time. Call light is within reach.
[2019-08-28 07:35] VITALS: BP 157/72; PULSE 62; TEMP 97.9
--- NOTE | 2019-08-28 07:48 | NUR ---
Pt alert and oriented this am. Pt rates pain at 4/10 in abdominal RLQ. Pt reports sleeping well last NOC. Pt wants to increase his diet to bland today and hopefully progress to going home today. Pt wants to try to not use Dilaudid today and just use oral pain medications for pain control. Pt ambulates in hallway without difficulty this am. Pt denies N/V/D. Pt also reports he feels as though the bloating has decreased. Pt encouraged and educated to increase diet slowly and start with small proportions. Pt states understanding. Pt has call light in reach and denies needs at this time.
[2019-08-28] MEDS ORDERED: ZESTRIL40 MG PO (10:41)
[2019-08-28 11:20] LABS: POTASSIUM 3.6 mmol/L (3.4-5.0)
[2019-08-28 11:28] LABS: CALCIUM 9.3 mg/dL (8.4-10.2); CREATININE, serum 0.61 (0.66-1.25)
[2019-08-28 11:32] VITALS: BP 162/88; PULSE 81; TEMP 97.5
[2019-08-28] MEDS ORDERED: FLAGYL500 MG PO (14:40)
[2019-08-28] MEDS ORDERED: PERCOCET 325 MG1 TA2 PO (14:41)
--- NOTE | 2019-08-28 16:15 | NUR ---
Discharge instructions reviewed with pt and pt's regarding follow-up appointments, medication changes, and diet restrictions. Pt verbalizes understanding, discharged home, ambulates out of facility accompanied by this nurse and pt's .
== END 2019-08-28 16:20 | disposition home or self-care (01) | DRG 392 ==
LOC: COL.ER 19:13 → MEDICAL 22:36
PROVIDERS: Family Medicine; Internal Medicine; Nurse Practitioner Family; Physician Assistant; ADMIT Family Medicine
DX: K57.20 Diverticulitis of large intestine with perforation and abscess without bleeding (principal); I50.22 Chronic systolic (congestive) heart failure; I42.2 Other hypertrophic cardiomyopathy; I11.0 Hypertensive heart disease with heart failure; G20 Parkinson's disease; E11.51 Type 2 diabetes mellitus with diabetic peripheral angiopathy without gangrene; F41.1 Generalized anxiety disorder; F31.9 Bipolar disorder, unspecified; E83.42 Hypomagnesemia; E87.6 Hypokalemia; I48.91 Unspecified atrial fibrillation; E78.5 Hyperlipidemia, unspecified; I25.10 Atherosclerotic heart disease of native coronary artery without angina pectoris; I25.2 Old myocardial infarction; F10.10 Alcohol abuse, uncomplicated; F17.210 Nicotine dependence, cigarettes, uncomplicated; Z79.01 Long term (current) use of anticoagulants; Z79.82 Long term (current) use of aspirin; Z95.5 Presence of coronary angioplasty implant and graft; Z95.810 Presence of automatic (implantable) cardiac defibrillator; Z86.73 Personal history of transient ischemic attack (TIA), and cerebral infarction without residual deficits; Z95.2 Presence of prosthetic heart valve
CPT/HCPCS: 99222-AI; 99231-AI; 99232-AI; 99239; A4216; J0360; J0696; J1170; J2270; J2405; J3475; J3480; J7030; Q9967

== ENCOUNTER 2019-09-10 14:01 | Emergency (ER) | payer MEDICAID ==
[~2019-09-10] VITALS: Ht 177.8 cm; Wt 104.0 kg
[~2019-09-10 14:01] MED LIST changes: +ATARAX 25MG25 MG/TAB PO; +COUMADIN 5MG5 MG/TAB PO; +MELATONIN5 M1 SL; +PRINIVIL20 MG PO; +TOPROL XL100 MG PO
[2019-09-10 14:05] VITALS: TEMP 98.8
[2019-09-10 14:40] LABS: BASO # 0.1 (0.0-0.2); BASO % 0.6 % (0.0-2.0); EOS # 0.2 (0.0-0.7); GRAN # 4.9 (1.4-6.5); GRAN % 62.7 % (42.2-75.2); HEMATOCRIT 48.5 % (42.0-52.0); HEMOGLOBIN 16.3 g/dl (13.5-18.0); LYMPH # 1.9 (1.2-3.4); LYMPH % 24.5 % (20.0-51.0); MEAN CELL VOLUME 86 fl (80.0-100.0); MEAN CORPUSCULAR HEMOGLOBIN 29 pg (27.0-31.0); MEAN CORPUSCULAR HGB CONC 34 g/dl (33.0-37.0); MEAN PLATELET VOLUME 9.9 fl (7.4-10.4); MONO # 0.7 (0.1-0.6); MONO % 8.8 % (1.7-9.3); PLATELET COUNT 210 K/mm3 (130-400); RED BLOOD COUNT 5.62 M/mm3 (4.20-5.60); REDCELL DISTRIBUTION WIDTH-CV 13.1 % (11.5-14.5)
[2019-09-10 14:48] LABS: COLLECTION METHOD CLEAN CATCH
[2019-09-10 14:49] LABS: ALBUMIN 4.4 gm/dL (3.5-5.0); BILIRUBIN,TOTAL 0.4 mg/dL (0.0-1.0); CALCIUM 9.6 mg/dL (8.4-10.2); CREATININE, serum 0.86 (0.66-1.25); POTASSIUM 3.9 mmol/L (3.4-5.0); TOTAL PROTEIN 8.7 gm/dL (6.4-8.2)
[2019-09-10 14:54] LABS: MUCOUS Present /lpf; PH 5 (5-8); SQUAMOUS EPITHELIAL 0-2 /hpf; URINE APPEARANCE Clear; URINE BACTERIA None Seen /hpf; URINE BILIRUBIN Negative (NEGATIVE); URINE BLOOD Negative (NEGATIVE); URINE COLOR Yellow; URINE GLUCOSE 1+ (NEGATIVE); URINE KETONE Trace (NEGATIVE); URINE LEUKOCYTE ESTERASE Negative (NEGATIVE); URINE NITRATE Negative (NEGATIVE); URINE PROTEIN(semi-quant) 1+ (NEGATIVE); URINE RBC 0-2 /hpf; URINE UROBILINOGEN Negative (NEGATIVE)
[2019-09-10 14:57] LABS: C-REACTIVE PROTEIN 0.5 mg/dL (0.0-0.9)
[2019-09-10] MEDS ORDERED: ZOLOFT 50MG50 MG PO (15:01)
[2019-09-10] MEDS ORDERED: PROTONIX 40MG T40 MG PO (15:01)
[2019-09-10] MEDS ORDERED: TRICOR145 MG PO (15:01)
[2019-09-10] MEDS ORDERED: AMOXICILLIN 8751 TAB PO (15:03)
[2019-09-10] MEDS ORDERED: BENTYL 10MG10 MG/CAP PO (15:03)
[2019-09-10] MEDS ORDERED: NORCO 325 MG-51 TAB PO (16:17)
[2019-09-10 16:45] VITALS: BP 163/109; PULSE 66
== END 2019-09-10 16:50 | disposition home or self-care (01) ==
LOC: COL.ER 14:01
PROVIDERS: Family Medicine
DX: K57.92 Diverticulitis of intestine, part unspecified, without perforation or abscess without bleeding (principal); E78.5 Hyperlipidemia, unspecified; I10 Essential (primary) hypertension; E11.9 Type 2 diabetes mellitus without complications; K21.9 Gastro-esophageal reflux disease without esophagitis; I25.2 Old myocardial infarction; F17.210 Nicotine dependence, cigarettes, uncomplicated; Z98.890 Other specified postprocedural states; Z95.0 Presence of cardiac pacemaker; Z90.89 Acquired absence of other organs; Z86.73 Personal history of transient ischemic attack (TIA), and cerebral infarction without residual deficits; Z79.82 Long term (current) use of aspirin
CPT/HCPCS: J2405; J3010; J7030

== ENCOUNTER 2019-09-11 14:13 | Emergency (ER) | payer MEDICAID ==
[~2019-09-11] VITALS: Ht 177.8 cm; Wt 105.4 kg
[~2019-09-11 14:13] MED LIST changes: +AMOXICILLIN 8751 TAB PO; +BENTYL 10MG10 MG/CAP PO
[2019-09-11 14:21] VITALS: TEMP 97.9
[2019-09-11 16:17] VITALS: BP 145/84; PULSE 60
== END 2019-09-11 16:20 | disposition home or self-care (01) ==
LOC: COL.ER 14:13
DX: K57.92 Diverticulitis of intestine, part unspecified, without perforation or abscess without bleeding (principal); I50.9 Heart failure, unspecified; I25.10 Atherosclerotic heart disease of native coronary artery without angina pectoris; I11.0 Hypertensive heart disease with heart failure; F17.210 Nicotine dependence, cigarettes, uncomplicated; Z90.89 Acquired absence of other organs; Z90.49 Acquired absence of other specified parts of digestive tract; Z79.82 Long term (current) use of aspirin
CPT/HCPCS: J1170; J2405; J7030

== ENCOUNTER 2019-11-19 16:15 | Emergency (ER) | payer MEDICARE, MEDICAID ==
[~2019-11-19] VITALS: Ht 177.8 cm; Wt 97.3 kg
[2019-11-19 16:22] VITALS: TEMP 97.7
[2019-11-19 17:16] LABS: BASO % 0.2 % (0.0-2.0); GRAN # 10.8 (1.4-6.5); GRAN % 87.8 % (42.2-75.2); HEMATOCRIT 43.8 % (42.0-52.0); HEMOGLOBIN 14.5 g/dl (13.5-18.0); LYMPH # 1.1 (1.2-3.4); LYMPH % 9.1 % (20.0-51.0); MEAN CELL VOLUME 86 fl (80.0-100.0); MEAN CORPUSCULAR HEMOGLOBIN 29 pg (27.0-31.0); MEAN CORPUSCULAR HGB CONC 33 g/dl (33.0-37.0); MONO # 0.3 (0.1-0.6); MONO % 2.3 % (1.7-9.3); PLATELET COUNT 245 K/mm3 (130-400); RED BLOOD COUNT 5.07 M/mm3 (4.20-5.60)
[2019-11-19 17:22] LABS: ALANINE AMINOTRANSFERASE 24 U/L (21-72); ALBUMIN 4.5 gm/dL (3.5-5.0); ALKALINE PHOSPHATASE 40 U/L (50-136); ANION GAP 13 mmol/L (7-16); AST,SGOT 22 U/L (15-37); BILIRUBIN,TOTAL 0.4 mg/dL (0.0-1.0); BLOOD UREA NITROGEN 18 mg/dL (9-20); CALCIUM 9.9 mg/dL (8.4-10.2); CARBON DIOXIDE 21 mmol/L (22-30); CHLORIDE 104 mmol/L (98-107); CREATININE, serum 0.78 (0.66-1.25); GLUCOSE 257 mg/dL (74-106); LIPASE 75 U/L (23-300); SODIUM 138 mmol/L (137-145); TOTAL PROTEIN 8.2 gm/dL (6.4-8.2)
[2019-11-19 17:33] LABS: C-REACTIVE PROTEIN < 0.5 mg/dL (0.0-0.9)
[2019-11-19 18:40] LABS: COLLECTION METHOD CLEAN CATCH
[2019-11-19 18:46] LABS: MUCOUS Present /lpf; PH 6 (5-8); SQUAMOUS EPITHELIAL 0-2 /hpf; URINE APPEARANCE Clear; URINE BACTERIA None Seen /hpf; URINE BILIRUBIN Negative (NEGATIVE); URINE BLOOD Negative (NEGATIVE); URINE COLOR Yellow; URINE GLUCOSE 1+ (NEGATIVE); URINE KETONE Negative (NEGATIVE); URINE LEUKOCYTE ESTERASE Negative (NEGATIVE); URINE NITRATE Negative (NEGATIVE); URINE PROTEIN(semi-quant) Negative (NEGATIVE); URINE RBC None Seen /hpf; URINE UROBILINOGEN Negative (NEGATIVE)
[2019-11-19] MEDS ORDERED: FLAGYL500 MG PO (18:46)
[2019-11-19] MEDS ORDERED: CIPRO 500MG TA500 MG PO (18:46)
[2019-11-19] MEDS ORDERED: NORCO 325 MG-51 TAB PO (18:46)
[2019-11-19 19:01] VITALS: BP 147/76; PULSE 61
== END 2019-11-19 19:13 | disposition home or self-care (01) ==
LOC: COL.ER 16:15
PROVIDERS: Emergency Medicine
DX: K62.89 Other specified diseases of anus and rectum (principal); R10.31 Right lower quadrant pain; R10.32 Left lower quadrant pain; E11.9 Type 2 diabetes mellitus without complications; I10 Essential (primary) hypertension; Z79.82 Long term (current) use of aspirin
CPT/HCPCS: J1170; J2405; J7030; Q9967

== ENCOUNTER 2019-11-22 11:24 | Emergency (ER) | payer MEDICARE, MEDICAID ==
[~2019-11-22] VITALS: Ht 177.8 cm; Wt 102.0 kg
[2019-11-22 11:31] VITALS: TEMP 97.7
[2019-11-22 12:01] LABS: BASO # 0.1 (0.0-0.2); BASO % 0.6 % (0.0-2.0); EOS # 0.4 (0.0-0.7); EOS % 4.2 % (0-4.0); GRAN # 5.5 (1.4-6.5); GRAN % 65.1 % (42.2-75.2); HEMATOCRIT 44.3 % (42.0-52.0); HEMOGLOBIN 14.7 g/dl (13.5-18.0); LYMPH # 1.9 (1.2-3.4); LYMPH % 22.6 % (20.0-51.0); MEAN CELL VOLUME 88 fl (80.0-100.0); MEAN CORPUSCULAR HEMOGLOBIN 29 pg (27.0-31.0); MEAN CORPUSCULAR HGB CONC 33 g/dl (33.0-37.0); MEAN PLATELET VOLUME 9.6 fl (7.4-10.4); MONO # 0.6 (0.1-0.6); PLATELET COUNT 242 K/mm3 (130-400); RED BLOOD COUNT 5.06 M/mm3 (4.20-5.60); REDCELL DISTRIBUTION WIDTH-CV 14.3 % (11.5-14.5)
[2019-11-22 12:28] LABS: ALANINE AMINOTRANSFERASE 22 U/L (21-72); ALBUMIN 4.1 gm/dL (3.5-5.0); ALKALINE PHOSPHATASE 40 U/L (50-136); ANION GAP 9 mmol/L (7-16); AST,SGOT 24 U/L (15-37); BILIRUBIN,TOTAL 0.3 mg/dL (0.0-1.0); BLOOD UREA NITROGEN 15 mg/dL (9-20); CALCIUM 8.8 mg/dL (8.4-10.2); CARBON DIOXIDE 25 mmol/L (22-30); CHLORIDE 106 mmol/L (98-107); CREATININE, serum 1.02 (0.66-1.25); GLUCOSE 173 mg/dL (74-106); LIPASE 119 U/L (23-300); SODIUM 140 mmol/L (137-145); TOTAL PROTEIN 7.4 gm/dL (6.4-8.2)
[2019-11-22 12:38] LABS: C-REACTIVE PROTEIN < 0.5 mg/dL (0.0-0.9)
[2019-11-22] MEDS ORDERED: FLEXERIL 1010 MG/TAB PO (13:44)
[2019-11-22] MEDS ORDERED: BENTYL 10MG10 MG/CAP PO (13:45)
[2019-11-22] MEDS ORDERED: NORCO 325 MG-51 TAB PO (13:49)
[2019-11-22 13:56] VITALS: BP 122/80; PULSE 65
== END 2019-11-22 13:59 | disposition home or self-care (01) ==
LOC: COL.ER 11:24
PROVIDERS: Emergency Medicine
DX: R10.9 Unspecified abdominal pain (principal); I10 Essential (primary) hypertension; I25.10 Atherosclerotic heart disease of native coronary artery without angina pectoris; F31.9 Bipolar disorder, unspecified; F41.9 Anxiety disorder, unspecified; F17.210 Nicotine dependence, cigarettes, uncomplicated; Z79.82 Long term (current) use of aspirin; Z90.89 Acquired absence of other organs
CPT/HCPCS: J1170; J2060; J2405; J2550; J7030; Q9967

== ENCOUNTER 2019-12-19 22:43 | Emergency (ER) | payer OTHER, MEDICARE, MEDICAID ==
[~2019-12-19] VITALS: Ht 177.8 cm; Wt 95.5 kg
[2019-12-19 23:23] LABS: BASO # 0.1 (0.0-0.2); BASO % 0.7 % (0.0-2.0); EOS # 0.4 (0.0-0.7); EOS % 5.1 % (0-4.0); GRAN # 3.7 (1.4-6.5); GRAN % 53.6 % (42.2-75.2); HEMATOCRIT 39.8 % (42.0-52.0); HEMOGLOBIN 13.6 g/dl (13.5-18.0); LYMPH # 2.1 (1.2-3.4); LYMPH % 30.6 % (20.0-51.0); MEAN CELL VOLUME 87 fl (80.0-100.0); MEAN CORPUSCULAR HEMOGLOBIN 30 pg (27.0-31.0); MEAN CORPUSCULAR HGB CONC 34 g/dl (33.0-37.0); MEAN PLATELET VOLUME 9.4 fl (7.4-10.4); MONO # 0.7 (0.1-0.6); MONO % 9.6 % (1.7-9.3); PLATELET COUNT 161 K/mm3 (130-400); RED BLOOD COUNT 4.57 M/mm3 (4.20-5.60); REDCELL DISTRIBUTION WIDTH-CV 13.5 % (11.5-14.5)
[2019-12-19 23:32] LABS: ALBUMIN 3.9 gm/dL (3.5-5.0); BILIRUBIN,TOTAL 0.4 mg/dL (0.0-1.0); CREATININE, serum 1.14 (0.66-1.25); POTASSIUM 3.2 mmol/L (3.4-5.0); TOTAL PROTEIN 7.2 gm/dL (6.4-8.2)
[2019-12-19 23:44] LABS: INR 1.4 (0.8-3.0); PROTHROMBIN TIME 16.9 SECONDS (9.7-12.8); TROPONIN-I 0.017 ng/mL (0.000-0.035)
[2019-12-19 23:47] LABS: PARTIAL THROMBOPLASTIN TIME 36.2 SECONDS (26.0-37.0)
[2019-12-20 00:41] VITALS: TEMP 97.7
[2019-12-20 02:30] VITALS: BP 144/85; PULSE 60
[2019-12-20] MEDS ORDERED: GLUCOPHAGE500 MG/TAB PO (03:47)
[2019-12-20] MEDS ORDERED: REQUIP 1MG T1 MG/TAB PO (03:51)
[2019-12-20] MEDS ORDERED: ZYPREXA10 MG PO (03:52)
[2019-12-20] MEDS ORDERED: HCTZ12.5TAB PO (03:53)
[2019-12-20] MEDS ORDERED: XARELTO20 MG PO (03:53)
[2019-12-20] MEDS ORDERED: LIPITOR 10MG10 MG PO (03:54)
[2019-12-20] MEDS ORDERED: LASIX 20MG TABL20 MG PO (03:54)
[2019-12-20] MEDS ORDERED: EFFE25TA PO (03:55)
[2019-12-20] MEDS ORDERED: NORVASC 5MG5 MG/TAB PO (03:56)
[2019-12-20] MEDS ORDERED: FLOMAX 0.40.4 MG/CAP PO (03:56)
== END 2019-12-20 02:43 | disposition home or self-care (01) ==
LOC: COL.ER 22:43
PROVIDERS: Emergency Medicine
DX: R07.89 Other chest pain (principal); I10 Essential (primary) hypertension; F31.9 Bipolar disorder, unspecified; E11.51 Type 2 diabetes mellitus with diabetic peripheral angiopathy without gangrene; I25.10 Atherosclerotic heart disease of native coronary artery without angina pectoris; Z79.82 Long term (current) use of aspirin; Z86.73 Personal history of transient ischemic attack (TIA), and cerebral infarction without residual deficits; Z87.891 Personal history of nicotine dependence; Z95.0 Presence of cardiac pacemaker; Z95.5 Presence of coronary angioplasty implant and graft
CPT/HCPCS: J2270

== ENCOUNTER 2020-06-23 16:24 | Emergency (ER) | payer MEDICARE, MEDICAID ==
[~2020-06-23] VITALS: Ht 177.8 cm; Wt 99.5 kg
[~2020-06-23 16:24] MED LIST changes: +EFFE25TA PO; +FLOMAX 0.40.4 MG/CAP PO; +HCTZ12.5TAB PO; +LIPITOR 10MG10 MG PO; +XARELTO20 MG PO; +ZYPREXA10 MG PO
[2020-06-23 16:28] VITALS: TEMP 97.7
[2020-06-23 17:12] LABS: BASO # 0.1 (0.0-0.2); EOS # 0.4 (0.0-0.7); EOS % 4.6 % (0-4.0); GRAN # 4.6 (1.4-6.5); GRAN % 59.3 % (42.2-75.2); HEMATOCRIT 44.6 % (42.0-52.0); HEMOGLOBIN 14.9 g/dl (13.5-18.0); LYMPH # 2.1 (1.2-3.4); LYMPH % 26.8 % (20.0-51.0); MEAN CELL VOLUME 87 fl (80.0-100.0); MEAN CORPUSCULAR HEMOGLOBIN 29 pg (27.0-31.0); MEAN CORPUSCULAR HGB CONC 33 g/dl (33.0-37.0); MEAN PLATELET VOLUME 9.5 fl (7.4-10.4); MONO # 0.6 (0.1-0.6); MONO % 7.9 % (1.7-9.3); PLATELET COUNT 232 K/mm3 (130-400); RED BLOOD COUNT 5.11 M/mm3 (4.20-5.60); REDCELL DISTRIBUTION WIDTH-CV 13.8 % (11.5-14.5)
[2020-06-23 17:40] LABS: ALBUMIN 4.4 gm/dL (3.5-5.0); BILIRUBIN,TOTAL 0.4 mg/dL (0.0-1.0); CALCIUM 9.4 mg/dL (8.4-10.2); CREATININE, serum 0.8 (0.66-1.25); POTASSIUM 3.7 mmol/L (3.4-5.0); TOTAL PROTEIN 8.5 gm/dL (6.4-8.2)
[2020-06-23 17:41] LABS: C-REACTIVE PROTEIN 0.5 mg/dL (0.0-0.9)
[2020-06-23] MEDS ORDERED: TRICOR145 MG PO (17:51)
[2020-06-23] MEDS ORDERED: NEURONTIN250 MG/5 M PO (17:54)
[2020-06-23] MEDS ORDERED: IMDUR 60MG60 MG/TAB PO (17:55)
[2020-06-23] MEDS ORDERED: TYLENOL 500MG500 MG PO (17:55)
[2020-06-23] MEDS ORDERED: ATIVAN 0.50.5 MG/TAB PO (17:56)
[2020-06-23] MEDS ORDERED: COZAAR 25MG25 MG/TAB PO (17:57)
[2020-06-23] MEDS ORDERED: GLUCOPHAGE1000 MG PO (17:57)
[2020-06-23] MEDS ORDERED: TOPROL XL 50MG50 MG PO (17:58)
[2020-06-23] MEDS ORDERED: MIRTAZAPINE7.5 MG PO (18:05)
[2020-06-23] MEDS ORDERED: NITROSTAT0.4 MG/TAB SL (18:09)
[2020-06-23] MEDS ORDERED: ROXICODONE15 MG PO (18:10)
[2020-06-23] MEDS ORDERED: PROTONIX 40MG T40 MG PO (18:11)
[2020-06-23] MEDS ORDERED: RANEXA 500MG T500 MG PO (18:12)
[2020-06-23] MEDS ORDERED: XARELTO20 MG PO (18:14)
[2020-06-23] MEDS ORDERED: CRESTOR40 MG PO (18:15)
[2020-06-23] MEDS ORDERED: SENNA-LAX8.6 MG PO (18:15)
[2020-06-23] MEDS ORDERED: EFFEXOR 75M75 MG/TAB PO (18:20)
[2020-06-23 19:09] VITALS: BP 162/95; PULSE 67
== END 2020-06-23 19:22 | disposition home or self-care (01) ==
LOC: COL.ER 16:24
PROVIDERS: Emergency Medicine
DX: G89.29 Other chronic pain (principal); R10.9 Unspecified abdominal pain; I25.10 Atherosclerotic heart disease of native coronary artery without angina pectoris; I11.0 Hypertensive heart disease with heart failure; E11.51 Type 2 diabetes mellitus with diabetic peripheral angiopathy without gangrene; F17.210 Nicotine dependence, cigarettes, uncomplicated; Z79.82 Long term (current) use of aspirin; Z79.84 Long term (current) use of oral hypoglycemic drugs; Z88.8 Allergy status to other drugs, medicaments and biological substances; Z86.73 Personal history of transient ischemic attack (TIA), and cerebral infarction without residual deficits; Z95.5 Presence of coronary angioplasty implant and graft; Z95.0 Presence of cardiac pacemaker; Z90.49 Acquired absence of other specified parts of digestive tract
CPT/HCPCS: J1170; J7030; Q9967

== ENCOUNTER 2020-06-25 14:21 | Emergency (ER) | payer MEDICARE, MEDICAID ==
[~2020-06-25] VITALS: Ht 177.8 cm; Wt 100.0 kg
[~2020-06-25 14:21] MED LIST changes: +ATIVAN 0.50.5 MG/TAB PO; +COZAAR 25MG25 MG/TAB PO; +CRESTOR40 MG PO; +EFFEXOR 75M75 MG/TAB PO; +MIRTAZAPINE7.5 MG PO; +NEURONTIN250 MG/5 M PO; +ROXICODONE15 MG PO; +SENNA-LAX8.6 MG PO; +TOPROL XL 50MG50 MG PO; +TYLENOL 500MG500 MG PO
[2020-06-25 14:32] VITALS: BP 178/101; TEMP 98.1
[2020-06-25 15:01] LABS: BASO # 0.1 (0.0-0.2); BASO % 1.1 % (0.0-2.0); EOS # 0.4 (0.0-0.7); EOS % 4.8 % (0-4.0); GRAN # 5.8 (1.4-6.5); GRAN % 62.2 % (42.2-75.2); HEMOGLOBIN 14.6 g/dl (13.5-18.0); LYMPH # 2.3 (1.2-3.4); LYMPH % 24.3 % (20.0-51.0); MEAN CELL VOLUME 87 fl (80.0-100.0); MEAN CORPUSCULAR HEMOGLOBIN 30 pg (27.0-31.0); MEAN CORPUSCULAR HGB CONC 34 g/dl (33.0-37.0); MEAN PLATELET VOLUME 9.2 fl (7.4-10.4); MONO # 0.7 (0.1-0.6); PLATELET COUNT 263 K/mm3 (130-400); RED BLOOD COUNT 4.95 M/mm3 (4.20-5.60); REDCELL DISTRIBUTION WIDTH-CV 14.2 % (11.5-14.5)
[2020-06-25 15:03] LABS: COLLECTION METHOD CLEAN CATCH
[2020-06-25 15:09] LABS: MUCOUS Present /lpf; PH 5 (5-8); SQUAMOUS EPITHELIAL None Seen /hpf; URINE APPEARANCE Clear; URINE BACTERIA None Seen /hpf; URINE BILIRUBIN Negative (NEGATIVE); URINE BLOOD Negative (NEGATIVE); URINE COLOR Yellow; URINE GLUCOSE Negative (NEGATIVE); URINE KETONE Negative (NEGATIVE); URINE LEUKOCYTE ESTERASE Negative (NEGATIVE); URINE NITRATE Negative (NEGATIVE); URINE PROTEIN(semi-quant) Negative (NEGATIVE); URINE RBC 0-2 /hpf; URINE UROBILINOGEN Negative (NEGATIVE)
[2020-06-25 15:13] LABS: ALANINE AMINOTRANSFERASE 35 U/L (4-49); ALBUMIN 4.2 gm/dL (3.5-5.0); ALKALINE PHOSPHATASE 50 U/L (50-136); ANION GAP 9 mmol/L (7-16); AST,SGOT 45 U/L (15-37); BILIRUBIN,TOTAL 0.4 mg/dL (0.0-1.0); BLOOD UREA NITROGEN 12 mg/dL (9-20); CALCIUM 9.5 mg/dL (8.4-10.2); CARBON DIOXIDE 22 mmol/L (22-30); CHLORIDE 104 mmol/L (98-107); CREATININE, serum 0.78 (0.66-1.25); GLUCOSE 134 mg/dL (74-106); LIPASE 123 U/L (23-300); POTASSIUM 3.7 mmol/L (3.4-5.0); SODIUM 135 mmol/L (137-145); TOTAL PROTEIN 8.2 gm/dL (6.4-8.2)
[2020-06-25 15:15] LABS: C-REACTIVE PROTEIN < 0.5 mg/dL (0.0-0.9)
[2020-06-25 16:21] VITALS: PULSE 85
== END 2020-06-25 16:14 | disposition home or self-care (01) ==
LOC: COL.ER 14:21
PROVIDERS: Physician Assistant
DX: K62.89 Other specified diseases of anus and rectum (principal); R10.30 Lower abdominal pain, unspecified; G89.29 Other chronic pain; E11.9 Type 2 diabetes mellitus without complications; I10 Essential (primary) hypertension; F17.210 Nicotine dependence, cigarettes, uncomplicated; Z79.01 Long term (current) use of anticoagulants; Z79.82 Long term (current) use of aspirin; Z79.84 Long term (current) use of oral hypoglycemic drugs; Z79.891 Long term (current) use of opiate analgesic; Z87.19 Personal history of other diseases of the digestive system; Z90.49 Acquired absence of other specified parts of digestive tract
CPT/HCPCS: J7030

== ENCOUNTER 2020-06-29 12:50 | Emergency (ER) | payer MEDICARE, MEDICAID ==
[~2020-06-29] VITALS: Ht 177.8 cm; Wt 100.0 kg
[2020-06-29 12:56] VITALS: BP 153/84; TEMP 97.9
[2020-06-29 14:30] VITALS: PULSE 79
== END 2020-06-29 14:30 | disposition left against medical advice (07) ==
LOC: COL.ER 12:50
DX: R10.9 Unspecified abdominal pain (principal)

== ENCOUNTER 2020-07-16 18:58 | Emergency (ER) | payer MEDICARE, MEDICAID ==
[~2020-07-16] VITALS: Ht 177.8 cm; Wt 100.0 kg
[2020-07-16 19:05] VITALS: TEMP 97
[2020-07-16 20:15] LABS: BASO # 0.1 (0.0-0.2); BASO % 0.8 % (0.0-2.0); EOS # 0.4 (0.0-0.7); EOS % 5.2 % (0-4.0); GRAN # 4.3 (1.4-6.5); HEMATOCRIT 48.8 % (42.0-52.0); HEMOGLOBIN 16.2 g/dl (13.5-18.0); LYMPH # 2.3 (1.2-3.4); LYMPH % 29.6 % (20.0-51.0); MEAN CELL VOLUME 89 fl (80.0-100.0); MEAN CORPUSCULAR HEMOGLOBIN 30 pg (27.0-31.0); MEAN CORPUSCULAR HGB CONC 33 g/dl (33.0-37.0); MEAN PLATELET VOLUME 10.9 fl (7.4-10.4); MONO # 0.6 (0.1-0.6); MONO % 7.9 % (1.7-9.3); PLATELET COUNT 201 K/mm3 (130-400); REDCELL DISTRIBUTION WIDTH-CV 13.7 % (11.5-14.5)
[2020-07-16 20:24] LABS: ALANINE AMINOTRANSFERASE 29 U/L (4-49); ALBUMIN 4.4 gm/dL (3.5-5.0); ALKALINE PHOSPHATASE 61 U/L (50-136); ANION GAP 14 mmol/L (7-16); AST,SGOT 54 U/L (15-37); BILIRUBIN,TOTAL 0.6 mg/dL (0.0-1.0); BLOOD UREA NITROGEN 16 mg/dL (9-20); CALCIUM 9.9 mg/dL (8.4-10.2); CARBON DIOXIDE 22 mmol/L (22-30); CHLORIDE 101 mmol/L (98-107); CREATININE, serum 0.86 (0.66-1.25); GLUCOSE 330 mg/dL (74-106); POTASSIUM 3.3 mmol/L (3.4-5.0); SODIUM 137 mmol/L (137-145); TOTAL PROTEIN 8.5 gm/dL (6.4-8.2)
[2020-07-16 20:25] LABS: C-REACTIVE PROTEIN < 0.5 mg/dL (0.0-0.9)
[2020-07-16 21:32] VITALS: BP 135/78; PULSE 72
== END 2020-07-16 21:25 ==
LOC: COL.ER 18:58
PROVIDERS: Nurse Practitioner
DX: R10.9 Unspecified abdominal pain (principal); G89.29 Other chronic pain; F17.210 Nicotine dependence, cigarettes, uncomplicated; I25.2 Old myocardial infarction; Z95.9 Presence of cardiac and vascular implant and graft, unspecified; Z90.49 Acquired absence of other specified parts of digestive tract; Z79.82 Long term (current) use of aspirin; Z79.84 Long term (current) use of oral hypoglycemic drugs
CPT/HCPCS: J1170; J1630; J7030

== ENCOUNTER 2020-07-18 16:07 | Emergency (ER) | payer MEDICARE, MEDICAID ==
[~2020-07-18] VITALS: Ht 177.8 cm; Wt 100.0 kg
[2020-07-18 16:24] VITALS: TEMP 98.4
[2020-07-18 19:06] LABS: BASO # 0.1 (0.0-0.2); BASO % 0.8 % (0.0-2.0); EOS # 0.5 (0.0-0.7); EOS % 5.7 % (0-4.0); GRAN # 4.8 (1.4-6.5); GRAN % 55.1 % (42.2-75.2); HEMATOCRIT 45.7 % (42.0-52.0); HEMOGLOBIN 15.4 g/dl (13.5-18.0); LYMPH # 2.5 (1.2-3.4); LYMPH % 29.1 % (20.0-51.0); MEAN CELL VOLUME 89 fl (80.0-100.0); MEAN CORPUSCULAR HEMOGLOBIN 30 pg (27.0-31.0); MEAN CORPUSCULAR HGB CONC 34 g/dl (33.0-37.0); MONO # 0.8 (0.1-0.6); PLATELET COUNT 225 K/mm3 (130-400); RED BLOOD COUNT 5.12 M/mm3 (4.20-5.60); REDCELL DISTRIBUTION WIDTH-CV 13.3 % (11.5-14.5)
[2020-07-18 19:18] LABS: ALANINE AMINOTRANSFERASE 29 U/L (4-49); ALBUMIN 4.2 gm/dL (3.5-5.0); ALKALINE PHOSPHATASE 41 U/L (50-136); ANION GAP 11 mmol/L (7-16); AST,SGOT 31 U/L (15-37); BILIRUBIN,TOTAL 0.5 mg/dL (0.0-1.0); BLOOD UREA NITROGEN 18 mg/dL (9-20); CALCIUM 9.4 mg/dL (8.4-10.2); CARBON DIOXIDE 25 mmol/L (22-30); CHLORIDE 100 mmol/L (98-107); CREATININE, serum 1.02 (0.66-1.25); GLUCOSE 229 mg/dL (74-106); LIPASE 142 U/L (23-300); POTASSIUM 3.6 mmol/L (3.4-5.0); SODIUM 137 mmol/L (137-145)
[2020-07-18 19:19] LABS: C-REACTIVE PROTEIN < 0.5 mg/dL (0.0-0.9)
[2020-07-18] MEDS ORDERED: CARAFATE 1GM1 G PO (20:44)
[2020-07-18 21:07] VITALS: BP 138/93; PULSE 66
== END 2020-07-18 21:23 | disposition home or self-care (01) ==
LOC: COL.ER 16:07
PROVIDERS: Emergency Medicine
DX: R10.84 Generalized abdominal pain (principal); G89.29 Other chronic pain; I50.9 Heart failure, unspecified; I25.10 Atherosclerotic heart disease of native coronary artery without angina pectoris; E11.9 Type 2 diabetes mellitus without complications; F17.210 Nicotine dependence, cigarettes, uncomplicated; Z86.73 Personal history of transient ischemic attack (TIA), and cerebral infarction without residual deficits; Z95.0 Presence of cardiac pacemaker; Z90.49 Acquired absence of other specified parts of digestive tract; Z88.6 Allergy status to analgesic agent; Z79.82 Long term (current) use of aspirin; Z79.84 Long term (current) use of oral hypoglycemic drugs; Z79.01 Long term (current) use of anticoagulants
CPT/HCPCS: J1630; J7030

== ENCOUNTER 2020-07-27 20:13 | Observation (INO) | payer MEDICARE, MEDICAID ==
[~2020-07-27] VITALS: Ht 177.8 cm; Wt 90.9 kg
[2020-07-27 20:42] LABS: BASO # 0.1 (0.0-0.2); BASO % 1.1 % (0.0-2.0); EOS # 0.5 (0.0-0.7); EOS % 7.1 % (0-4.0); GRAN # 3.2 (1.4-6.5); GRAN % 50.6 % (42.2-75.2); HEMATOCRIT 45.6 % (42.0-52.0); HEMOGLOBIN 15.3 g/dl (13.5-18.0); LYMPH # 2.1 (1.2-3.4); LYMPH % 32.7 % (20.0-51.0); MEAN CELL VOLUME 88 fl (80.0-100.0); MEAN CORPUSCULAR HEMOGLOBIN 30 pg (27.0-31.0); MEAN CORPUSCULAR HGB CONC 34 g/dl (33.0-37.0); MEAN PLATELET VOLUME 9.4 fl (7.4-10.4); MONO # 0.5 (0.1-0.6); MONO % 8.2 % (1.7-9.3); PLATELET COUNT 218 K/mm3 (130-400); RED BLOOD COUNT 5.18 M/mm3 (4.20-5.60); REDCELL DISTRIBUTION WIDTH-CV 12.6 % (11.5-14.5)
[2020-07-27 20:54] LABS: INR 1.1 (0.8-3.0); PROTHROMBIN TIME 12.8 SECONDS (9.7-12.8)
[2020-07-27 21:04] LABS: ALANINE AMINOTRANSFERASE 24 U/L (4-49); ALBUMIN 4.2 gm/dL (3.5-5.0); ALKALINE PHOSPHATASE 49 U/L (50-136); ANION GAP 10 mmol/L (7-16); AST,SGOT 30 U/L (15-37); BILIRUBIN,TOTAL 0.4 mg/dL (0.0-1.0); BLOOD UREA NITROGEN 12 mg/dL (9-20); CALCIUM 9.8 mg/dL (8.4-10.2); CARBON DIOXIDE 24 mmol/L (22-30); CHLORIDE 101 mmol/L (98-107); CREATININE, serum 1.04 (0.66-1.25); GLUCOSE 287 mg/dL (74-106); LIPASE 168 U/L (23-300); POTASSIUM 3.5 mmol/L (3.4-5.0); SODIUM 135 mmol/L (137-145); TOTAL PROTEIN 7.9 gm/dL (6.4-8.2)
[2020-07-27 21:08] LABS: ALCOHOL(ethanol),MEDICAL < 10 mg/dL; C-REACTIVE PROTEIN < 0.5 mg/dL (0.0-0.9)
[2020-07-27 21:23] LABS: TROPONIN-I < 0.012 ng/mL (0.000-0.035)
[2020-07-27] MEDS ORDERED: PERCOCET 325 MG1 TA2 PO (22:59)
[2020-07-27] MEDS ORDERED: ATARAX 25MG25 MG/TAB PO (23:00)
[2020-07-27] MEDS ORDERED: EFFEXOR XR75 MG/CAP PO (23:01)
[2020-07-27] MEDS ORDERED: TOPROL XL 50MG50 MG PO (23:02)
[2020-07-27] MEDS ORDERED: RANEXA 500MG T500 MG PO (23:02)
[2020-07-27] MEDS ORDERED: NORVASC 5MG5 MG/TAB PO (23:02)
[2020-07-27] MEDS ORDERED: PRINIVIL10 MG PO (23:02)
[2020-07-27] MEDS ORDERED: IMDUR 60MG60 MG/TAB PO (23:02)
[2020-07-27] MEDS ORDERED: PROTONIX 40MG T40 MG PO (23:03)
[2020-07-27] MEDS ORDERED: CARAFATE 1GM1 G PO (23:03)
[2020-07-27] MEDS ORDERED: TRICOR145 MG PO (23:03)
[2020-07-27] MEDS ORDERED: REMERON 15M15 MG/TA1 PO (23:03)
[2020-07-27] MEDS ORDERED: NITROSTAT0.4 MG/TAB SL (23:04)
[2020-07-27] MEDS ORDERED: CRESTOR40 MG PO (23:04)
[2020-07-28] VITALS (8 sets, daily range): BP systolic 94–157; BP diastolic 57–80; PULSE 18–71; TEMP 97.6–97.9
[2020-07-28 01:35] LABS: TROPONIN-I 3 HR POST INITIAL < 0.012 ng/mL (0.000-0.034)
--- NOTE | 2020-07-28 02:37 | NUR ---
Pt admission procedure completed, alert, oriented, roomair. Heart and lung sound are clear. No edema and no open cuts over body No N/V/D/tingling, numbnes, SOA PER PT. Helped her settled on her bed, call light on reach, no further needs at this time.
[2020-07-28 04:08] LABS: BASO # 0.1 (0.0-0.2); BASO % 0.9 % (0.0-2.0); EOS # 0.4 (0.0-0.7); EOS % 7.6 % (0-4.0); GRAN # 2.8 (1.4-6.5); GRAN % 51.5 % (42.2-75.2); HEMATOCRIT 44.5 % (42.0-52.0); HEMOGLOBIN 14.9 g/dl (13.5-18.0); LYMPH # 1.7 (1.2-3.4); LYMPH % 31.5 % (20.0-51.0); MEAN CELL VOLUME 89 fl (80.0-100.0); MEAN CORPUSCULAR HEMOGLOBIN 30 pg (27.0-31.0); MEAN CORPUSCULAR HGB CONC 34 g/dl (33.0-37.0); MEAN PLATELET VOLUME 9.5 fl (7.4-10.4); MONO # 0.4 (0.1-0.6); MONO % 7.8 % (1.7-9.3); PLATELET COUNT 199 K/mm3 (130-400); RED BLOOD COUNT 5.02 M/mm3 (4.20-5.60); REDCELL DISTRIBUTION WIDTH-CV 12.8 % (11.5-14.5)
[2020-07-28 04:32] LABS: ANION GAP 10 mmol/L (7-16); BLOOD UREA NITROGEN 15 mg/dL (9-20); CALCIUM 9.5 mg/dL (8.4-10.2); CARBON DIOXIDE 25 mmol/L (22-30); CHLORIDE 102 mmol/L (98-107); CREATININE, serum 0.75 (0.66-1.25); GLUCOSE 210 mg/dL (74-106); POTASSIUM 3.6 mmol/L (3.4-5.0); SODIUM 137 mmol/L (137-145)
[2020-07-28 04:44] LABS: TROPONIN-I 6 HR POST INITIAL < 0.012 ng/mL (0.000-0.034)
--- NOTE | 2020-07-28 13:50 | NUR ---
Plan:-Unknown Assessment: SW met with Hattie in room. reports that they reside in [place]. shares the patient's PCP is Dr. Robles. Patient is reported to use a walker and have a pacemaker. denies the client having any other EMR contacts or DPOA. Patient was unable to anser questions. reports that she is a retired [employer] and support client in home. Action: SW deferred medical question to HSP. to discuss. WIll continue to follow for additional needs.
--- NOTE | 2020-07-28 18:43 | NUR ---
Patient is alert and oriented. diet was advance from clear liquid to full liquid. patient continue to complain of epigastric abdominal pain. pain managed with porcocet and dilaudid. HR dropped to 58-59, RN informed SARA Rodriguez.
--- NOTE | 2020-07-28 23:30 | NUR ---
Pt assessment completed and charted, alert, oriented, roomair. Meds provided as per MAR, tolerated well. PRN pain meds provided as per pt request on q2hr. Helped pt to settled down on his bed, call light on reach. No further needs at this time.
[2020-07-29 02:56] VITALS: BP 117/72; PULSE 62; TEMP 97.7
[2020-07-29 07:44] VITALS: BP 120/77; PULSE 66; TEMP 97.8
--- NOTE | 2020-07-29 07:50 | NUR ---
Pt slept on and off through out the night. Morning meds provided. Call light on reach. Handover provided to the day nurse.
--- NOTE | 2020-07-29 08:56 | NUR ---
PT REPORTS PAIN 7/10 SHARP AND ACHING TO ABD. CURRENTLY POINTS TO EPIGASTRIC AREA. REPORTED PAIN 5/10 AT SHIFT CHANGE AND POINTED AT STERNUM AREA. SPECIFICALLY REQUESTED IV DULAUDID TO MANAGE PAIN. EDUCATED ON AVAILABILITY OF PERCOCET BUT WOULD NOT LIKE AT THIS TIME. PT CALM, ORIENTED, SPEAKING TO LAB IN NORMAL TONE. PRN MEDS GIVEN. REPRTS LARGE BM THIS AM. DENIES NAUSEA, CHEST PAIN, HEADACHE. WILL CONT TO MONITOR
[2020-07-29 09:06] LABS: BASO # 0.1 (0.0-0.2); BASO % 0.8 % (0.0-2.0); EOS # 0.4 (0.0-0.7); EOS % 7.2 % (0-4.0); GRAN # 3.7 (1.4-6.5); GRAN % 61.3 % (42.2-75.2); HEMATOCRIT 43.2 % (42.0-52.0); HEMOGLOBIN 14.2 g/dl (13.5-18.0); LYMPH # 1.5 (1.2-3.4); LYMPH % 24.5 % (20.0-51.0); MEAN CELL VOLUME 89 fl (80.0-100.0); MEAN CORPUSCULAR HEMOGLOBIN 29 pg (27.0-31.0); MEAN CORPUSCULAR HGB CONC 33 g/dl (33.0-37.0); MEAN PLATELET VOLUME 9.7 fl (7.4-10.4); MONO # 0.3 (0.1-0.6); MONO % 5.7 % (1.7-9.3); PLATELET COUNT 188 K/mm3 (130-400); RED BLOOD COUNT 4.84 M/mm3 (4.20-5.60); REDCELL DISTRIBUTION WIDTH-CV 12.8 % (11.5-14.5)
[2020-07-29 09:18] LABS: CREATININE, serum 0.68 (0.66-1.25); MAGNESIUM 1.6 mg/dL (1.6-2.3); POTASSIUM 3.8 mmol/L (3.4-5.0)
--- NOTE | 2020-07-29 13:20 | NUR ---
PT DISCHARGED TO HOME ACCOMPANIED BY @ 1300. ALL QUESTIONS ANSWERED. ESCORTED OUT VIA AMBULATION.
== END 2020-07-29 13:00 | disposition home health service (06) ==
LOC: COL.ER 20:13 → MEDICAL 23:23
PROVIDERS: Emergency Medicine; Nurse Practitioner Family; Physician Assistant; ADMIT Internal Medicine Pulmonary Disease
DX: K22.0 Achalasia of cardia (principal); R55 Syncope and collapse; I25.10 Atherosclerotic heart disease of native coronary artery without angina pectoris; I25.2 Old myocardial infarction; I42.9 Cardiomyopathy, unspecified; I11.0 Hypertensive heart disease with heart failure; I50.20 Unspecified systolic (congestive) heart failure; I08.0 Rheumatic disorders of both mitral and aortic valves; I73.9 Peripheral vascular disease, unspecified; E11.9 Type 2 diabetes mellitus without complications; F41.1 Generalized anxiety disorder; I48.91 Unspecified atrial fibrillation; K21.0 Gastro-esophageal reflux disease with esophagitis; E78.00 Pure hypercholesterolemia, unspecified; F17.210 Nicotine dependence, cigarettes, uncomplicated; E66.9 Obesity, unspecified; Z68.31 Body mass index [BMI] 31.0-31.9, adult; Z95.5 Presence of coronary angioplasty implant and graft; Z95.0 Presence of cardiac pacemaker; Z86.73 Personal history of transient ischemic attack (TIA), and cerebral infarction without residual deficits; Z90.49 Acquired absence of other specified parts of digestive tract
CPT/HCPCS: 99223-AI; 99239; G0378; J1170; J1815; J2405; J3010; J3475

== ENCOUNTER → 2020-08-27 | Outpatient (CLI) | payer MEDICARE, MEDICAID ==
[~2020-08-27] MED LIST changes: +EFFEXOR XR75 MG/CAP PO; +PRINIVIL10 MG PO
== END ==
LOC: MHCPAIN 15:22
DX: M47.812 Spondylosis without myelopathy or radiculopathy, cervical region (principal); M54.2 Cervicalgia; R51.9 Headache, unspecified; M96.1 Postlaminectomy syndrome, not elsewhere classified; G89.29 Other chronic pain
CPT/HCPCS: G0463

== ENCOUNTER → 2020-08-30 | Outpatient (CLI) | payer MEDICARE, MEDICAID | LOC: MHCPAIN 09:49 ==

== ENCOUNTER → 2020-09-27 | Outpatient (CLI) | payer MEDICARE, MEDICAID | LOC: MHCPAIN 09:47 | DX: M47.812 Spondylosis without myelopathy or radiculopathy, cervical region (principal); M54.2 Cervicalgia; R51.9 Headache, unspecified; G89.29 Other chronic pain | CPT/HCPCS: G0463 ==

== ENCOUNTER → 2020-10-11 | Outpatient (CLI) | payer MEDICARE, MEDICAID | LOC: MHCPAIN 08:17 | DX: M47.812 Spondylosis without myelopathy or radiculopathy, cervical region (principal); M54.2 Cervicalgia; R51.9 Headache, unspecified | CPT/HCPCS: G0463; J2250; J2405; J3010 ==

== ENCOUNTER 2020-10-31 18:02 | Emergency (ER) | payer MEDICARE, MEDICAID ==
[~2020-10-31] VITALS: Ht 177.8 cm; Wt 97.7 kg
[2020-10-31 18:12] VITALS: TEMP 97.8
[2020-10-31 20:43] LABS: BASO # 0.1 (0.0-0.2); BASO % 0.9 % (0.0-2.0); EOS # 0.6 (0.0-0.7); EOS % 7.6 % (0-4.0); GRAN # 4.3 (1.4-6.5); GRAN % 51.2 % (42.2-75.2); HEMATOCRIT 46.7 % (42.0-52.0); HEMOGLOBIN 15.6 g/dl (13.5-18.0); LYMPH # 2.8 (1.2-3.4); LYMPH % 33.2 % (20.0-51.0); MEAN CELL VOLUME 87 fl (80.0-100.0); MEAN CORPUSCULAR HEMOGLOBIN 29 pg (27.0-31.0); MEAN CORPUSCULAR HGB CONC 33 g/dl (33.0-37.0); MEAN PLATELET VOLUME 9.2 fl (7.4-10.4); MONO # 0.6 (0.1-0.6); MONO % 6.6 % (1.7-9.3); PLATELET COUNT 241 K/mm3 (130-400); RED BLOOD COUNT 5.38 M/mm3 (4.20-5.60); REDCELL DISTRIBUTION WIDTH-CV 14.2 % (11.5-14.5)
[2020-10-31 20:53] LABS: ALBUMIN 4.2 gm/dL (3.5-5.0); BILIRUBIN,TOTAL 0.6 mg/dL (0.0-1.0); CALCIUM 9.4 mg/dL (8.4-10.2); CREATININE, serum 0.94 (0.66-1.25); POTASSIUM 4.1 mmol/L (3.4-5.0); TOTAL PROTEIN 7.7 gm/dL (6.4-8.2)
[2020-10-31 23:13] VITALS: BP 141/87; PULSE 69
== END 2020-10-31 23:13 | disposition home or self-care (01) ==
LOC: COL.ER 18:02
PROVIDERS: Nurse Practitioner Primary Care
DX: G89.29 Other chronic pain (principal); M54.2 Cervicalgia; I10 Essential (primary) hypertension; G43.909 Migraine, unspecified, not intractable, without status migrainosus; F32.9 Major depressive disorder, single episode, unspecified; F41.9 Anxiety disorder, unspecified; I25.2 Old myocardial infarction; Z88.6 Allergy status to analgesic agent; Z79.82 Long term (current) use of aspirin; Z79.01 Long term (current) use of anticoagulants
CPT/HCPCS: J1170; J7030

== ENCOUNTER 2020-11-10 14:02 | Emergency (ER) | payer MEDICARE, MEDICAID ==
[~2020-11-10] VITALS: Ht 177.8 cm; Wt 97.7 kg
[2020-11-10 14:15] VITALS: TEMP 97.7
[2020-11-10 14:58] LABS: BASO # 0.1 (0.0-0.2); BASO % 1.1 % (0.0-2.0); EOS # 0.5 (0.0-0.7); EOS % 4.9 % (0-4.0); GRAN # 5.8 (1.4-6.5); GRAN % 61.7 % (42.2-75.2); HEMATOCRIT 50.2 % (42.0-52.0); LYMPH # 2.4 (1.2-3.4); LYMPH % 25.6 % (20.0-51.0); MEAN CELL VOLUME 86 fl (80.0-100.0); MEAN CORPUSCULAR HEMOGLOBIN 29 pg (27.0-31.0); MEAN CORPUSCULAR HGB CONC 34 g/dl (33.0-37.0); MEAN PLATELET VOLUME 9.7 fl (7.4-10.4); MONO # 0.6 (0.1-0.6); MONO % 6.4 % (1.7-9.3); PLATELET COUNT 285 K/mm3 (130-400); RED BLOOD COUNT 5.84 M/mm3 (4.20-5.60); REDCELL DISTRIBUTION WIDTH-CV 14.6 % (11.5-14.5)
[2020-11-10 14:59] LABS: TROPONIN-I 0.016 ng/mL (0.000-0.035)
[2020-11-10 16:57] VITALS: BP 151/93; PULSE 80
== END 2020-11-10 17:05 | disposition home or self-care (01) ==
LOC: COL.ER 14:02
PROVIDERS: Physician Assistant
DX: R10.13 Epigastric pain (principal); R07.89 Other chest pain; I10 Essential (primary) hypertension; G43.909 Migraine, unspecified, not intractable, without status migrainosus; G89.29 Other chronic pain; F32.9 Major depressive disorder, single episode, unspecified; F41.9 Anxiety disorder, unspecified; I25.2 Old myocardial infarction; Z88.8 Allergy status to other drugs, medicaments and biological substances; Z79.82 Long term (current) use of aspirin; Z79.01 Long term (current) use of anticoagulants
CPT/HCPCS: J1170; J7030

== ENCOUNTER → 2020-12-11 | Outpatient (CLI) | payer MEDICARE, MEDICAID | LOC: MHCPAIN 13:43 | DX: M47.812 Spondylosis without myelopathy or radiculopathy, cervical region (principal); M96.1 Postlaminectomy syndrome, not elsewhere classified; M54.2 Cervicalgia; R51.9 Headache, unspecified | CPT/HCPCS: G0463 ==

== ENCOUNTER 2020-12-21 10:23 | Emergency (ER) | payer MEDICARE, MEDICAID ==
[~2020-12-21] VITALS: Ht 177.8 cm; Wt 95.5 kg
[2020-12-21 10:23] VITALS: TEMP 97.6
[2020-12-21 10:53] LABS: BASO % 0.3 % (0.0-2.0); EOS # 0.5 (0.0-0.7); EOS % 3.8 % (0-4.0); GRAN # 9.5 (1.4-6.5); GRAN % 78.1 % (42.2-75.2); HEMATOCRIT 51.6 % (42.0-52.0); HEMOGLOBIN 16.8 g/dl (13.5-18.0); LYMPH # 1.4 (1.2-3.4); LYMPH % 11.8 % (20.0-51.0); MEAN CELL VOLUME 89 fl (80.0-100.0); MEAN CORPUSCULAR HEMOGLOBIN 29 pg (27.0-31.0); MEAN CORPUSCULAR HGB CONC 33 g/dl (33.0-37.0); MEAN PLATELET VOLUME 9.1 fl (7.4-10.4); MONO # 0.6 (0.1-0.6); MONO % 4.8 % (1.7-9.3); PLATELET COUNT 350 K/mm3 (130-400); REDCELL DISTRIBUTION WIDTH-CV 14.1 % (11.5-14.5)
[2020-12-21 11:00] LABS: ALBUMIN 4.3 gm/dL (3.5-5.0); BILIRUBIN,TOTAL 0.6 mg/dL (0.0-1.0); CALCIUM 9.7 mg/dL (8.4-10.2); CREATININE, serum 0.84 (0.66-1.25); POTASSIUM 4.5 mmol/L (3.4-5.0); TOTAL PROTEIN 8.5 gm/dL (6.4-8.2)
[2020-12-21 11:01] LABS: INR 1.6 (0.8-3.0); PROTHROMBIN TIME 17.9 SECONDS (9.7-12.8)
[2020-12-21] MEDS ORDERED: AMOXICILLIN 8751 TAB PO (15:42)
[2020-12-21 15:53] VITALS: BP 152/81; PULSE 69
== END 2020-12-21 15:50 | disposition home or self-care (01) ==
LOC: COL.ER 10:23
PROVIDERS: Emergency Medicine
DX: K22.0 Achalasia of cardia (principal); G89.29 Other chronic pain; R10.9 Unspecified abdominal pain; E78.00 Pure hypercholesterolemia, unspecified; I25.2 Old myocardial infarction; F17.210 Nicotine dependence, cigarettes, uncomplicated; Z95.0 Presence of cardiac pacemaker; Z88.6 Allergy status to analgesic agent; Z79.82 Long term (current) use of aspirin; Z79.01 Long term (current) use of anticoagulants
CPT/HCPCS: J0456; J0696; J2270; J7030; J7050; Q9967

== ENCOUNTER 2021-01-19 13:27 | Emergency (ER) | payer MEDICARE, MEDICAID ==
[~2021-01-19] VITALS: Ht 177.8 cm; Wt 100.0 kg
[2021-01-19 14:21] LABS: BASO # 0.1 (0.0-0.2); BASO % 0.7 % (0.0-2.0); EOS # 0.8 (0.0-0.7); EOS % 7.5 % (0-4.0); GRAN # 7.7 (1.4-6.5); GRAN % 71.6 % (42.2-75.2); HEMATOCRIT 43.7 % (42.0-52.0); HEMOGLOBIN 14.3 g/dl (13.5-18.0); LYMPH # 1.7 (1.2-3.4); LYMPH % 15.8 % (20.0-51.0); MEAN CELL VOLUME 89 fl (80.0-100.0); MEAN CORPUSCULAR HEMOGLOBIN 29 pg (27.0-31.0); MEAN CORPUSCULAR HGB CONC 33 g/dl (33.0-37.0); MEAN PLATELET VOLUME 9.7 fl (7.4-10.4); MONO # 0.4 (0.1-0.6); PLATELET COUNT 219 K/mm3 (130-400); RED BLOOD COUNT 4.89 M/mm3 (4.20-5.60); REDCELL DISTRIBUTION WIDTH-CV 14.6 % (11.5-14.5)
[2021-01-19 14:35] LABS: ALANINE AMINOTRANSFERASE 19 U/L (4-49); ALBUMIN 3.8 gm/dL (3.5-5.0); ALKALINE PHOSPHATASE 38 U/L (50-136); ANION GAP 9 mmol/L (7-16); AST,SGOT 23 U/L (15-37); BILIRUBIN,TOTAL 0.5 mg/dL (0.0-1.0); BLOOD UREA NITROGEN 12 mg/dL (9-20); C-REACTIVE PROTEIN 1.2 mg/dL (0.0-0.9); CALCIUM 9.3 mg/dL (8.4-10.2); CARBON DIOXIDE 24 mmol/L (22-30); CHLORIDE 105 mmol/L (98-107); CREATININE, serum 0.89 (0.66-1.25); GLUCOSE 160 mg/dL (74-106); LIPASE 131 U/L (23-300); POTASSIUM 3.5 mmol/L (3.4-5.0); SODIUM 138 mmol/L (137-145); TOTAL PROTEIN 7.3 gm/dL (6.4-8.2)
[2021-01-19 14:45] LABS: TROPONIN-I < 0.012 ng/mL (0.000-0.035)
[2021-01-19] MEDS ORDERED: PERCOCET 325 MG1 TA2 PO (14:53)
[2021-01-19 15:03] LABS: COLLECTION METHOD CLEAN CATCH
[2021-01-19 15:08] LABS: PH 6 (5-8); SQUAMOUS EPITHELIAL None Seen /hpf; URINE APPEARANCE Clear; URINE BACTERIA None Seen /hpf; URINE BILIRUBIN Negative (NEGATIVE); URINE BLOOD Negative (NEGATIVE); URINE COLOR Yellow; URINE GLUCOSE Negative (NEGATIVE); URINE KETONE Negative (NEGATIVE); URINE LEUKOCYTE ESTERASE Negative (NEGATIVE); URINE NITRATE Negative (NEGATIVE); URINE PROTEIN(semi-quant) Negative (NEGATIVE); URINE RBC None Seen /hpf; URINE UROBILINOGEN Negative (NEGATIVE)
[2021-01-19 15:35] VITALS: BP 108/83; PULSE 75; TEMP 98.2
== END 2021-01-19 15:39 | disposition home or self-care (01) ==
LOC: COL.ER 13:27
PROVIDERS: Family Medicine
DX: K22.0 Achalasia of cardia (principal); F10.10 Alcohol abuse, uncomplicated; I25.10 Atherosclerotic heart disease of native coronary artery without angina pectoris; I10 Essential (primary) hypertension; I25.2 Old myocardial infarction; F41.1 Generalized anxiety disorder; E11.9 Type 2 diabetes mellitus without complications; Z95.9 Presence of cardiac and vascular implant and graft, unspecified; Z95.0 Presence of cardiac pacemaker; Z86.73 Personal history of transient ischemic attack (TIA), and cerebral infarction without residual deficits; Z90.49 Acquired absence of other specified parts of digestive tract; Z88.6 Allergy status to analgesic agent; Z88.8 Allergy status to other drugs, medicaments and biological substances; Z79.82 Long term (current) use of aspirin; Z79.01 Long term (current) use of anticoagulants
CPT/HCPCS: J1170; J2405; J7120

== ENCOUNTER 2021-05-17 08:04 | Emergency (ER) | payer MEDICARE, MEDICAID ==
[~2021-05-17] VITALS: Ht 177.8 cm; Wt 96.8 kg
[2021-05-17 08:13] VITALS: TEMP 98
[2021-05-17 08:39] LABS: BASO # 0.1 (0.0-0.2); BASO % 0.6 % (0.0-2.0); EOS # 0.5 (0.0-0.7); GRAN # 9.7 (1.4-6.5); HEMATOCRIT 42.6 % (42.0-52.0); HEMOGLOBIN 13.8 g/dl (13.5-18.0); LYMPH # 1.7 (1.2-3.4); LYMPH % 13.1 % (20.0-51.0); MEAN CELL VOLUME 88 fl (80.0-100.0); MEAN CORPUSCULAR HEMOGLOBIN 28 pg (27.0-31.0); MEAN CORPUSCULAR HGB CONC 32 g/dl (33.0-37.0); MEAN PLATELET VOLUME 8.6 fl (7.4-10.4); MONO # 0.8 (0.1-0.6); MONO % 6.1 % (1.7-9.3); PLATELET COUNT 486 K/mm3 (130-400); RED BLOOD COUNT 4.86 M/mm3 (4.20-5.60); REDCELL DISTRIBUTION WIDTH-CV 14.4 % (11.5-14.5)
[2021-05-17 08:59] LABS: ALANINE AMINOTRANSFERASE 10 U/L (4-49); ALBUMIN 4.1 gm/dL (3.5-5.0); ALKALINE PHOSPHATASE 52 U/L (50-136); ANION GAP 10 mmol/L (7-16); AST,SGOT 27 U/L (15-37); BILIRUBIN,TOTAL 0.2 mg/dL (0.0-1.0); BLOOD UREA NITROGEN 13 mg/dL (9-20); CALCIUM 9.7 mg/dL (8.4-10.2); CARBON DIOXIDE 25 mmol/L (22-30); CHLORIDE 102 mmol/L (98-107); CREATININE, serum 0.79 (0.66-1.25); GLUCOSE 134 mg/dL (74-106); POTASSIUM 3.7 mmol/L (3.4-5.0); SODIUM 137 mmol/L (137-145); TOTAL PROTEIN 8.7 gm/dL (6.4-8.2)
[2021-05-17 09:12] LABS: TROPONIN-I < 0.012 ng/mL (0.000-0.035)
[2021-05-17] MEDS ORDERED: AMOXICILLIN 50500 MG PO (11:51)
[2021-05-17 12:16] VITALS: BP 162/98; PULSE 76
== END 2021-05-17 12:23 | disposition home or self-care (01) ==
LOC: COL.ER 08:04
PROVIDERS: Emergency Medicine
DX: J18.9 Pneumonia, unspecified organism (principal); F10.10 Alcohol abuse, uncomplicated; I10 Essential (primary) hypertension; I25.10 Atherosclerotic heart disease of native coronary artery without angina pectoris; I25.2 Old myocardial infarction; F31.9 Bipolar disorder, unspecified; E11.51 Type 2 diabetes mellitus with diabetic peripheral angiopathy without gangrene; F17.210 Nicotine dependence, cigarettes, uncomplicated; Z95.9 Presence of cardiac and vascular implant and graft, unspecified; Z86.73 Personal history of transient ischemic attack (TIA), and cerebral infarction without residual deficits; Z95.0 Presence of cardiac pacemaker; Z79.01 Long term (current) use of anticoagulants; Z88.8 Allergy status to other drugs, medicaments and biological substances; Z79.82 Long term (current) use of aspirin; Z88.6 Allergy status to analgesic agent; Z79.899 Other long term (current) drug therapy
CPT/HCPCS: Q9967

== ENCOUNTER 2021-05-22 16:56 | Inpatient (IN) | payer MEDICARE, MEDICAID ==
[~2021-05-22] VITALS: Ht 177.8 cm; Wt 97.4 kg
[2021-05-22] VITALS (81 sets, daily range): O2SAT 90–95
[~2021-05-22 16:56] MED LIST changes: +AMOXICILLIN 50500 MG PO
[2021-05-22 17:33] LABS: HEMATOCRIT 42.5 % (42.0-52.0); MEAN CELL VOLUME 86 fl (80.0-100.0); MEAN CORPUSCULAR HEMOGLOBIN 29 pg (27.0-31.0); MEAN CORPUSCULAR HGB CONC 33 g/dl (33.0-37.0); MEAN PLATELET VOLUME 8.8 fl (7.4-10.4); PLATELET COUNT 444 K/mm3 (130-400); RED BLOOD COUNT 4.92 M/mm3 (4.20-5.60); REDCELL DISTRIBUTION WIDTH-CV 14.2 % (11.5-14.5)
[2021-05-22 17:38] LABS: ALANINE AMINOTRANSFERASE 10 U/L (4-49); ALBUMIN 3.9 gm/dL (3.5-5.0); ALKALINE PHOSPHATASE 50 U/L (50-136); ANION GAP 8 mmol/L (7-16); AST,SGOT 28 U/L (15-37); BILIRUBIN,TOTAL 0.3 mg/dL (0.0-1.0); BLOOD UREA NITROGEN 15 mg/dL (9-20); CALCIUM 9.3 mg/dL (8.4-10.2); CARBON DIOXIDE 25 mmol/L (22-30); CHLORIDE 104 mmol/L (98-107); CREATININE, serum 0.69 (0.66-1.25); GLUCOSE 140 mg/dL (74-106); POTASSIUM 3.6 mmol/L (3.4-5.0); SODIUM 136 mmol/L (137-145); TOTAL PROTEIN 8.4 gm/dL (6.4-8.2)
[2021-05-22 17:50] LABS: TROPONIN-I < 0.012 ng/mL (0.000-0.035)
[2021-05-22 18:42] LABS: BAND 3 % (0-10); BASOPHIL 2 % (0-2); EOSINOPHIL 7 % (0-4); LYMPHOCYTE 22 % (20.0-51.0); MYELOCYTE 1 % (0-0); NEUTROPHILS 60 % (42.0-75.2); PLATELET ESTIMATE INCREASED (NORMAL)
[2021-05-22] MEDS ORDERED: NEURONTIN300 MG/CAP PO (18:52)
[2021-05-22] MEDS ORDERED: HALDOL 1MG T1 MG/TAB PO (18:52)
[2021-05-22] MEDS ORDERED: TOPROL XL100 MG PO (18:53)
[2021-05-22] MEDS ORDERED: PROTONIX 40MG T40 MG PO (18:54)
[2021-05-22] MEDS ORDERED: CYMBALTA 60MG60 MG PO (18:54)
[2021-05-22] MEDS ORDERED: CLARITIN 1010 MG/TAB PO (18:55)
[2021-05-22] MEDS ORDERED: ANTIVERT 25MG25 MG PO (18:56)
[2021-05-22] MEDS ORDERED: PRINIVIL40 MG PO (18:57)
[2021-05-22] MEDS ORDERED: DESYREL 100MG100 MG PO (18:57)
[2021-05-22] MEDS ORDERED: TRULICITY1.5 MG/0.5 SQ (18:59)
--- NOTE | 2021-05-22 20:42 | NUR ---
Received report from ED nurse, Rosa M.
[2021-05-22 20:58] LABS: INR 1.9 (0.8-3.0)
[2021-05-22 21:01] LABS: PARTIAL THROMBOPLASTIN TIME 38.5 SECONDS (26.0-37.0)
--- NOTE | 2021-05-22 21:39 | NUR ---
Vancomycin Initial Dosing Pharmacy Note Ordering provider: Rohan Hernández MD 60 YO M Indication/duration: PNA/ 7 DAYS GOAL: 15-20 HX: NO DOSING HISTORY IDENTIFIED BMI: 30.2 WT: 95.5 KG ADJBW: 82 KG SCR: 0.69 ADJBW CRCL ~ 130 ML/MIN T 1/2 ~ 6H TMAX: 97.6 WBC: 9.7 MICRO IN PROCESS CXR REPORTING CONSOLIDATING PNA PT LOADED WITH VANCO 2GM (~21 MG/KG) AND THEN STARTED ON A MAINTENANCE REGIMEN OF 1.25 GM Q8H. WILL FOLLOW RENAL FUNCTION, MICRO, AND PLAN OF CARE FOR NEED TO ADJUST TREATMENT. THANK YOU FOR THIS DOSING CONSULT!
--- NOTE | 2021-05-22 21:51 | NUR ---
Patient arrives to ICU room 7 via ED stretcher. Patient is able to ambulate with SBA to ICU bed. He is drowsy upon arrival, however, he answers all orientation questions appropriately. Reports mild chest pain rated 3/10. Initial BP 161/82, all other vitals within normal limits. Patient arrives on room air, tolerating well. No fluids or medications infusing at this time. Jennifer aware of patient's arrival.
--- NOTE | 2021-05-22 22:30 | NUR ---
Patient's belongings include street clothes, glasses, a cell phone and charging cord; two boxes of cigarettes, a furniture sales associate, and $28 glover. Patient denies having brought wallet to hospital; he states has it at home. He denies having dentures, partials, plates, or hearing aids. Patient brings with him a bag of home medications, which are sent with warehouse handler, Areli, to pharmacy. According to suicide screening, patient is high risk. Jennifer, hospitalist, notified. supervisor core shop, Areli, puts cell phone, devulcanizer charger, cigarettes, furniture sales associate, and glover, within safe. All other personal belongings are placed in ICU safe. Room sweep completed, patient changed into flaherty gown. Patient made aware of visitation restrictions.
[2021-05-22 22:48] LABS: ACETAMINOPHEN < 10 ug/mL (10-30); ALCOHOL(ethanol),MEDICAL < 10 mg/dL; SALICYLATE < 1.0 mg/dL
[2021-05-22 23:34] LABS: COLLECTION METHOD CLEAN CATCH
[2021-05-22 23:46] LABS: PH 5 (5-8); SQUAMOUS EPITHELIAL None Seen /hpf; URINE APPEARANCE Clear; URINE BACTERIA None Seen /hpf; URINE BILIRUBIN Negative (NEGATIVE); URINE BLOOD Negative (NEGATIVE); URINE COLOR Yellow; URINE GLUCOSE Negative (NEGATIVE); URINE KETONE Negative (NEGATIVE); URINE LEUKOCYTE ESTERASE Negative (NEGATIVE); URINE NITRATE Negative (NEGATIVE); URINE PROTEIN(semi-quant) Negative (NEGATIVE); URINE RBC None Seen /hpf; URINE UROBILINOGEN Negative (NEGATIVE)
[2021-05-23] VITALS (490 sets, daily range): BP systolic 127–203; BP diastolic 74–116; PULSE 60–65; TEMP 98–98.8; O2SAT 87–100
[2021-05-23 00:08] LABS: TRICYCLIC ANTIDEPRESS URINE NEGATIVE
[2021-05-23 05:36] LABS: HEMATOCRIT 41.5 % (42.0-52.0); HEMOGLOBIN 13.3 g/dl (13.5-18.0); MEAN CELL VOLUME 87 fl (80.0-100.0); MEAN CORPUSCULAR HEMOGLOBIN 28 pg (27.0-31.0); MEAN CORPUSCULAR HGB CONC 32 g/dl (33.0-37.0); RED BLOOD COUNT 4.79 M/mm3 (4.20-5.60); REDCELL DISTRIBUTION WIDTH-CV 14.4 % (11.5-14.5)
[2021-05-23 05:50] LABS: PLATELET COUNT 335 K/mm3 (130-400)
[2021-05-23 06:30] LABS: BAND 3 % (0-10); EOSINOPHIL 9 % (0-4); LYMPHOCYTE 30 % (20.0-51.0); METAMYELOCYTE 1 % (0-0); NEUTROPHILS 53 % (42.0-75.2); PLATELET ESTIMATE NORMAL (NORMAL)
[2021-05-23 07:08] LABS: CHOLESTEROL RISK RATIO 6.2
--- NOTE | 2021-05-23 07:30 | NUR ---
Report given to GISELLE Isidro.
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
[2021-05-23 08:35] LABS: CALCIUM 8.7 mg/dL (8.4-10.2); CREATININE, serum 0.72 (0.66-1.25); POTASSIUM 3.6 mmol/L (3.4-5.0)
--- NOTE | 2021-05-23 10:00 | NUR ---
CathLab notified of potential LHC per [facility]
--- NOTE | 2021-05-23 10:14 | NUR ---
Requested information faxed to [facility] for consultation
--- NOTE | 2021-05-23 11:32 | NUR ---
[facility] recieved all required information - when pt is medically cleared they will evaluate pt
--- NOTE | 2021-05-23 12:03 | NUR ---
First visit from the rn team leader. Chaplain gaspard for patient while standing outside their door.
--- NOTE | 2021-05-23 13:58 | NUR ---
Patient is currently on suicide precautions. [facility] to screen patient once medically stable. RN has faxed clinical information to [facility]. SW will complete intake once patient has been screened by psych.
[2021-05-24] VITALS (459 sets, daily range): BP systolic 124–173; BP diastolic 76–117; PULSE 60–74; TEMP 98.1–98.2; O2SAT 88–100
[2021-05-24 05:06] LABS: HEMATOCRIT 43.1 % (42.0-52.0); HEMOGLOBIN 13.8 g/dl (13.5-18.0); MEAN CELL VOLUME 89 fl (80.0-100.0); MEAN CORPUSCULAR HEMOGLOBIN 29 pg (27.0-31.0); MEAN CORPUSCULAR HGB CONC 32 g/dl (33.0-37.0); PLATELET COUNT 327 K/mm3 (130-400); RED BLOOD COUNT 4.84 M/mm3 (4.20-5.60); REDCELL DISTRIBUTION WIDTH-CV 14.1 % (11.5-14.5)
[2021-05-24 05:22] LABS: INR 1.3 (0.8-3.0); PROTHROMBIN TIME 14.6 SECONDS (9.7-12.8)
[2021-05-24 05:23] LABS: CALCIUM 9.3 mg/dL (8.4-10.2); CREATININE, serum 0.86 (0.66-1.25); MAGNESIUM 1.8 mg/dL (1.6-2.3); POTASSIUM 4.1 mmol/L (3.4-5.0)
--- NOTE | 2021-05-24 08:41 | NUR ---
PT is awake this morning lying in bed appears comfortable. PT requests morphine stating it has been two hours. PT asked about pain. PT states he is having 7/10 chest pain that he has been having since he got here. PT offered tylenol. PT became upset stating, "I have the order for morphine, its not like you guys are giving me a lot like 4mg. That is what I want not tylenol". Rest of patients morning assessment was unremarkable. Drips set at correct rates as given in report. PT appreciative for care. Call light in reach
--- NOTE | 2021-05-24 08:58 | NUR ---
During assessment PT answers questions to the suicidal risk assessment all yes. PT states he does want to harm himself, he does not wish to live and that he does have a plan. At this time the patient said he is not acting on it because he is "here".
--- NOTE | 2021-05-24 16:16 | NUR ---
SEE MERGE DOCUMENTATION FOR MEDICATION ADMINISTRATION TIMES AND INTRA/POST PROCEDURE SEDATION ASSESSMENTS.
--- NOTE | 2021-05-24 16:29 | NUR ---
1605 pt LEFT FOR MENTAL RETARDATION NURSE
--- NOTE | 2021-05-24 18:28 | NUR ---
PT back to unit at 7573
--- NOTE | 2021-05-24 19:10 | NUR ---
Report given to GISELLE Lan.
--- NOTE | 2021-05-24 19:10 | NUR ---
Received report from GISELLE Braswell.
--- NOTE | 2021-05-24 19:11 | NUR ---
PT report given to GISELLE Lan.
--- NOTE | 2021-05-24 20:00 | NUR ---
Patient resting quietly in bed. Right groin cath site is covered with gauze dressing that is clean, dry, and intact. Site is soft and without hematoma formation. Pedal pulses palpable. Vitals within normal limits. Patient reports constant chest pain/pressure rated 6/10. Continues to receive nitro drip at 50 mcg/min. Will administer pain medication according to orders. No further needs noted.
[2021-05-25] VITALS (889 sets, daily range): BP systolic 120–167; BP diastolic 66–94; PULSE 59–74; TEMP 97.8–98.4; O2SAT 74–100
[2021-05-25 05:52] LABS: HEMATOCRIT 42.2 % (42.0-52.0); HEMOGLOBIN 13.9 g/dl (13.5-18.0); MEAN CELL VOLUME 87 fl (80.0-100.0); MEAN CORPUSCULAR HEMOGLOBIN 29 pg (27.0-31.0); MEAN CORPUSCULAR HGB CONC 33 g/dl (33.0-37.0); MEAN PLATELET VOLUME 9.1 fl (7.4-10.4); PLATELET COUNT 317 K/mm3 (130-400); RED BLOOD COUNT 4.84 M/mm3 (4.20-5.60); REDCELL DISTRIBUTION WIDTH-CV 14.1 % (11.5-14.5)
[2021-05-25 06:03] LABS: CALCIUM 9.5 mg/dL (8.4-10.2); CREATININE, serum 0.78 (0.66-1.25); MAGNESIUM 1.8 mg/dL (1.6-2.3); POTASSIUM 3.8 mmol/L (3.4-5.0)
--- NOTE | 2021-05-25 08:20 | NUR ---
This morning, PT is stating he as 7-9/10 pain in his groin and back that he wants IV morphine for. PT states he does not have chest pain. When this RN offers tramadol PO the patient states, "No I have IV morphine ordered every two hours this is what I want". Pt again denies chest pain and states his pain is because of the pressure that was held on his groin after his cathlab procedure yesterday.
--- NOTE | 2021-05-25 12:44 | NUR ---
PT called to ask how often he can get his pain medication. PT states the oral medication given earlier is not helping. PT states his back is hurting "really bad". Oral [place] given as ordered. Will recheck pain.
--- NOTE | 2021-05-25 17:05 | NUR ---
Offered patient, a bed bath with antibacterial bathing wipes, to brush his teeth, bedding change and a new gown. PT accepted and was very thankful. PT states his pain did come back around 1600. Pt given tylenol per eMAR. PT is understanding that he is unable to receive more [place] at this time. Fresh ice water provided. Pt back to bed watching tv with call light in reach.
--- NOTE | 2021-05-25 19:14 | NUR ---
REPORT GIVEN TO GISELLE RAMOS
--- NOTE | 2021-05-25 20:10 | NUR ---
Assessment complete and charted. Patient resting in bed. Continues to report suicidal ideas. States he is now homeless and needs to speak with social workers in morning. Remains in suicidal precautions.
[2021-05-26] VITALS (572 sets, daily range): BP systolic 150–170; BP diastolic 83–97; PULSE 59–77; TEMP 97.6–97.9; O2SAT 73–100
[2021-05-26 06:46] LABS: BASO # 0.1 (0.0-0.2); BASO % 0.7 % (0.0-2.0); EOS # 0.7 (0.0-0.7); GRAN % 70.7 % (42.2-75.2); HEMATOCRIT 48.1 % (42.0-52.0); LYMPH # 1.1 (1.2-3.4); LYMPH % 13.2 % (20.0-51.0); MEAN CELL VOLUME 87 fl (80.0-100.0); MEAN CORPUSCULAR HEMOGLOBIN 29 pg (27.0-31.0); MEAN CORPUSCULAR HGB CONC 33 g/dl (33.0-37.0); MEAN PLATELET VOLUME 8.9 fl (7.4-10.4); MONO # 0.6 (0.1-0.6); MONO % 6.8 % (1.7-9.3); PLATELET COUNT 342 K/mm3 (130-400); RED BLOOD COUNT 5.52 M/mm3 (4.20-5.60); REDCELL DISTRIBUTION WIDTH-CV 14.1 % (11.5-14.5)
[2021-05-26 06:48] LABS: HEMOGLOBIN 15.9 g/dl (13.5-18.0)
[2021-05-26 06:51] LABS: ANION GAP 10 mmol/L (7-16); BLOOD UREA NITROGEN 13 mg/dL (9-20); CALCIUM 10.1 mg/dL (8.4-10.2); CARBON DIOXIDE 25 mmol/L (22-30); CHLORIDE 103 mmol/L (98-107); CREATININE, serum 0.74 (0.66-1.25); GLUCOSE 119 mg/dL (74-106); POTASSIUM 4.3 mmol/L (3.4-5.0); SODIUM 138 mmol/L (137-145)
[2021-05-26 07:10] LABS: TROPONIN-I < 0.012 ng/mL (0.000-0.035)
--- NOTE | 2021-05-26 07:13 | NUR ---
Report given GISELLE Singletary
--- NOTE | 2021-05-26 07:30 | NUR ---
Patient awake and resting in bed; Alert and oriented and cooperative with assessment. Patient does endorse still having thoughts of self-harm or suicide. Admits to having a "couple of plans". But did not specify. Also endorses self-harm in the "recent-past". Currently not acting out or attempting self harm. Continues on Q15 min suicide checks. VS stable at this time.
--- NOTE | 2021-05-26 12:35 | NUR ---
SW confirmed nurse faxed clinical intake for [facility] to [phone]. Awaiting screen process.
--- NOTE | 2021-05-26 13:00 | NUR ---
Screened by Jamil and accepted to the crisis center. Notified [facility] [employer] general laborer to arrange secure transport.
--- NOTE | 2021-05-26 13:40 | NUR ---
Patient resting in bed. Continues to report suicidal ideations, however states that he does not have any intentions of harming himself while in the hospital. Reports that he will be homeless if he leaves here now. Discussed Placement with [facility] and their ability to assist him with housing and any social issues before leaving their facilty. Patient agreeable to this. Will continue to monitor.
[2021-05-26] MEDS ORDERED: AMOXICILLIN 8751 TAB PO (13:41)
[2021-05-26] MEDS ORDERED: PLAVIX 75MG TAB75 MG PO (13:42)
[2021-05-26] MEDS ORDERED: LIPITOR 80MG80 MG PO (13:43)
[2021-05-26] MEDS ORDERED: COREG 25MG25 MG/TAB PO (13:43)
[2021-05-26] MEDS ORDERED: NORVASC 10MG10 MG PO (13:44)
--- NOTE | 2021-05-26 14:49 | NUR ---
Notified [facility] that secure transport was arranged and should arrive within approximately 1 hour.
--- NOTE | 2021-05-26 16:16 | NUR ---
Valuables envelope retrieved from safe and given to GISELLE Singletary.
--- NOTE | 2021-05-26 16:24 | NUR ---
Patient discharged from facility via secure transport to [facility]. Patient alert and oriented and stable upon transfer.
== END 2021-05-26 16:34 | DRG 250 ==
LOC: COL.ER 16:56 → ICU 19:50
PROVIDERS: Emergency Medicine; Family Medicine; Internal Medicine Adult Congenital Heart Disease; Nurse Practitioner; Nurse Practitioner Family; Student in an Organized Health Care Education/Training Program; ADMIT Internal Medicine
PROC: 02703ZZ Dilation of Coronary Artery, One Artery, Percutaneous Approach (ICD-10-PCS; principal; 2021-05-24)
PROC: 4A023N7 Measurement of Cardiac Sampling and Pressure, Left Heart, Percutaneous Approach (ICD-10-PCS; 2021-05-24)
PROC: B2111ZZ Fluoroscopy of Multiple Coronary Arteries using Low Osmolar Contrast (ICD-10-PCS; 2021-05-24)
DX: I25.110 Atherosclerotic heart disease of native coronary artery with unstable angina pectoris (principal); J18.9 Pneumonia, unspecified organism; I50.22 Chronic systolic (congestive) heart failure; R45.851 Suicidal ideations; I42.2 Other hypertrophic cardiomyopathy; I11.0 Hypertensive heart disease with heart failure; I25.2 Old myocardial infarction; I48.91 Unspecified atrial fibrillation; Z20.822 Contact with and (suspected) exposure to COVID-19; E11.51 Type 2 diabetes mellitus with diabetic peripheral angiopathy without gangrene; K22.0 Achalasia of cardia; I34.0 Nonrheumatic mitral (valve) insufficiency; I08.1 Rheumatic disorders of both mitral and tricuspid valves; E87.6 Hypokalemia; F10.10 Alcohol abuse, uncomplicated; F31.9 Bipolar disorder, unspecified; F41.1 Generalized anxiety disorder; E78.5 Hyperlipidemia, unspecified; F17.210 Nicotine dependence, cigarettes, uncomplicated; Z79.01 Long term (current) use of anticoagulants; Z79.82 Long term (current) use of aspirin; Z95.0 Presence of cardiac pacemaker; Z95.5 Presence of coronary angioplasty implant and graft; Z86.73 Personal history of transient ischemic attack (TIA), and cerebral infarction without residual deficits; Z88.8 Allergy status to other drugs, medicaments and biological substances
CPT/HCPCS: 99223-AI; 99233-AI; 99239; C1725; C1769; C1887; C1894; J1644; J2250; J2270; J2543; J3010; J3370; J7030; J7050; Q9967

== ENCOUNTER 2021-07-10 19:30 | Emergency (ER) | payer MEDICARE, MEDICAID ==
[~2021-07-10] VITALS: Ht 177.8 cm; Wt 100.0 kg
[~2021-07-10 19:30] MED LIST changes: +ANTIVERT 25MG25 MG PO; +CLARITIN 1010 MG/TAB PO; +COREG 25MG25 MG/TAB PO; +DESYREL 100MG100 MG PO; +HALDOL 1MG T1 MG/TAB PO; +LIPITOR 80MG80 MG PO; +PRINIVIL40 MG PO; +TRULICITY1.5 MG/0.5 SQ
[2021-07-10 19:36] VITALS: BP 125/65; PULSE 90; TEMP 97.8
== END 2021-07-10 20:40 | disposition home or self-care (01) ==
LOC: COL.ER 19:30
DX: S02.5XXA Fracture of tooth (traumatic), initial encounter for closed fracture (principal); I10 Essential (primary) hypertension; I25.10 Atherosclerotic heart disease of native coronary artery without angina pectoris; I25.2 Old myocardial infarction; Z79.02 Long term (current) use of antithrombotics/antiplatelets; Z79.899 Other long term (current) drug therapy; X58.XXXA Exposure to other specified factors, initial encounter

== ENCOUNTER 2021-07-22 15:24 | Emergency (ER) | payer MEDICARE, MEDICAID ==
[~2021-07-22] VITALS: Ht 177.8 cm; Wt 95.5 kg
[2021-07-22 16:22] VITALS: TEMP 98.1
[2021-07-22 17:20] LABS: BASO # 0.1 (0.0-0.2); BASO % 1.2 % (0.0-2.0); EOS # 0.8 (0.0-0.7); EOS % 11.7 % (0-4.0); GRAN # 3.6 (1.4-6.5); GRAN % 54.7 % (42.2-75.2); HEMATOCRIT 42.4 % (42.0-52.0); HEMOGLOBIN 14.2 g/dl (13.5-18.0); LYMPH # 1.6 (1.2-3.4); LYMPH % 24.8 % (20.0-51.0); MEAN CELL VOLUME 85 fl (80.0-100.0); MEAN CORPUSCULAR HEMOGLOBIN 29 pg (27.0-31.0); MEAN CORPUSCULAR HGB CONC 34 g/dl (33.0-37.0); MEAN PLATELET VOLUME 9.4 fl (7.4-10.4); MONO # 0.4 (0.1-0.6); MONO % 6.7 % (1.7-9.3); PLATELET COUNT 252 K/mm3 (130-400); RED BLOOD COUNT 4.97 M/mm3 (4.20-5.60); REDCELL DISTRIBUTION WIDTH-CV 14.2 % (11.5-14.5)
[2021-07-22 17:25] LABS: ALBUMIN 4.2 gm/dL (3.5-5.0); BILIRUBIN,TOTAL 0.1 mg/dL (0.0-1.0); CALCIUM 9.3 mg/dL (8.4-10.2); CREATININE, serum 0.79 (0.66-1.25); POTASSIUM 3.8 mmol/L (3.4-5.0)
[2021-07-22 21:20] VITALS: BP 106/69; PULSE 81
== END 2021-07-22 21:20 | disposition home or self-care (01) ==
LOC: COL.ER 15:24
PROVIDERS: Personal Emergency Response Attendant
DX: R10.31 Right lower quadrant pain (principal); I10 Essential (primary) hypertension; I25.10 Atherosclerotic heart disease of native coronary artery without angina pectoris; F31.9 Bipolar disorder, unspecified; F41.9 Anxiety disorder, unspecified; I25.2 Old myocardial infarction; Z90.49 Acquired absence of other specified parts of digestive tract; Z79.02 Long term (current) use of antithrombotics/antiplatelets; Z79.899 Other long term (current) drug therapy; Z79.01 Long term (current) use of anticoagulants
CPT/HCPCS: J2270; J7030; Q9967

== ENCOUNTER 2021-08-02 20:06 | Emergency (ER) | payer MEDICARE, MEDICAID ==
[~2021-08-02] VITALS: Ht 177.8 cm; Wt 100.0 kg
[2021-08-02 20:36] VITALS: TEMP 98
[2021-08-03 00:15] VITALS: BP 126/78; PULSE 76
== END 2021-08-03 00:15 | disposition home or self-care (01) ==
LOC: COL.ER 20:06
DX: S16.1XXA Strain of muscle, fascia and tendon at neck level, initial encounter (principal); I25.2 Old myocardial infarction; E11.9 Type 2 diabetes mellitus without complications; F31.9 Bipolar disorder, unspecified; F41.9 Anxiety disorder, unspecified; I11.0 Hypertensive heart disease with heart failure; I50.20 Unspecified systolic (congestive) heart failure; Z79.01 Long term (current) use of anticoagulants; Z79.02 Long term (current) use of antithrombotics/antiplatelets; X50.1XXA Overexertion from prolonged static or awkward postures, initial encounter; Z79.899 Other long term (current) drug therapy
CPT/HCPCS: J1100; J3360

== ENCOUNTER 2021-08-20 18:34 | Emergency (ER) | payer MEDICARE, MEDICAID ==
[~2021-08-20] VITALS: Ht 175.3 cm; Wt 101.8 kg
[2021-08-20 18:52] VITALS: TEMP 98.4
[2021-08-20 19:45] LABS: BASO # 0.1 (0.0-0.2); BASO % 0.6 % (0.0-2.0); EOS # 0.6 (0.0-0.7); EOS % 8.2 % (0-4.0); GRAN # 4.9 (1.4-6.5); GRAN % 62.4 % (42.2-75.2); HEMATOCRIT 39.2 % (42.0-52.0); HEMOGLOBIN 13.2 g/dl (13.5-18.0); LYMPH # 1.7 (1.2-3.4); LYMPH % 21.3 % (20.0-51.0); MEAN CELL VOLUME 86 fl (80.0-100.0); MEAN CORPUSCULAR HEMOGLOBIN 29 pg (27.0-31.0); MEAN CORPUSCULAR HGB CONC 34 g/dl (33.0-37.0); MONO # 0.6 (0.1-0.6); PLATELET COUNT 284 K/mm3 (130-400); RED BLOOD COUNT 4.58 M/mm3 (4.20-5.60); REDCELL DISTRIBUTION WIDTH-CV 14.7 % (11.5-14.5)
[2021-08-20 20:01] LABS: ALBUMIN 3.7 gm/dL (3.4-4.8); BILIRUBIN,TOTAL 0.2 mg/dL (0.2-1.2); CALCIUM 9.2 mg/dL (8.4-10.2); CREATININE, serum 1.06 mg/dL (0.72-1.25); POTASSIUM 3.8 mmol/L (3.5-4.5); TOTAL PROTEIN 7.2 gm/dL (6.2-8.1)
[2021-08-20 21:55] LABS: COLLECTION METHOD CLEAN CATCH
[2021-08-20 22:00] LABS: MUCOUS Present /lpf; PH 5 (5-8); SQUAMOUS EPITHELIAL None Seen /hpf; URINE APPEARANCE Clear; URINE BACTERIA None Seen /hpf; URINE BILIRUBIN Negative (NEGATIVE); URINE BLOOD Negative (NEGATIVE); URINE COLOR Yellow; URINE GLUCOSE Negative (NEGATIVE); URINE KETONE Negative (NEGATIVE); URINE LEUKOCYTE ESTERASE Negative (NEGATIVE); URINE NITRATE Negative (NEGATIVE); URINE PROTEIN(semi-quant) Negative (NEGATIVE); URINE RBC 0-2 /hpf
[2021-08-20 22:47] VITALS: BP 134/84; PULSE 70
== END 2021-08-20 22:51 | disposition home or self-care (01) ==
LOC: COL.ER 18:34
PROVIDERS: Physician Assistant
DX: R10.30 Lower abdominal pain, unspecified (principal); G89.29 Other chronic pain; D64.9 Anemia, unspecified; I10 Essential (primary) hypertension; I25.10 Atherosclerotic heart disease of native coronary artery without angina pectoris; F31.9 Bipolar disorder, unspecified; F41.1 Generalized anxiety disorder; E11.9 Type 2 diabetes mellitus without complications; Z86.73 Personal history of transient ischemic attack (TIA), and cerebral infarction without residual deficits; I25.2 Old myocardial infarction; Z79.02 Long term (current) use of antithrombotics/antiplatelets; Z79.899 Other long term (current) drug therapy; Z79.01 Long term (current) use of anticoagulants; Z79.84 Long term (current) use of oral hypoglycemic drugs
CPT/HCPCS: J2270; J7030

== ENCOUNTER 2021-09-10 18:12 | Emergency (ER) | payer MEDICARE, MEDICAID ==
[~2021-09-10] VITALS: Ht 175.3 cm; Wt 100.0 kg
[2021-09-10 18:51] LABS: COLLECTION METHOD CLEAN CATCH
[2021-09-10 19:06] LABS: MUCOUS Present /lpf; PH 6 (5-8); SQUAMOUS EPITHELIAL 0-2 /hpf; URINE APPEARANCE Clear; URINE BACTERIA None Seen /hpf; URINE BILIRUBIN Negative (NEGATIVE); URINE BLOOD Negative (NEGATIVE); URINE COLOR Yellow; URINE GLUCOSE 3+ (NEGATIVE); URINE KETONE Negative (NEGATIVE); URINE LEUKOCYTE ESTERASE Negative (NEGATIVE); URINE NITRATE Negative (NEGATIVE); URINE PROTEIN(semi-quant) Negative (NEGATIVE); URINE RBC 0-2 /hpf; URINE UROBILINOGEN Negative (NEGATIVE)
[2021-09-10 19:38] VITALS: BP 129/81; PULSE 88; TEMP 98.4
== END 2021-09-10 19:38 | disposition home or self-care (01) ==
LOC: COL.ER 18:12
PROVIDERS: Physician Assistant
DX: G89.29 Other chronic pain (principal); R10.30 Lower abdominal pain, unspecified; R81 Glycosuria; I10 Essential (primary) hypertension; I25.10 Atherosclerotic heart disease of native coronary artery without angina pectoris; I25.2 Old myocardial infarction; F31.9 Bipolar disorder, unspecified; F41.1 Generalized anxiety disorder; E11.9 Type 2 diabetes mellitus without complications; Z95.9 Presence of cardiac and vascular implant and graft, unspecified; Z86.73 Personal history of transient ischemic attack (TIA), and cerebral infarction without residual deficits; Z90.49 Acquired absence of other specified parts of digestive tract; Z79.899 Other long term (current) drug therapy; Z79.01 Long term (current) use of anticoagulants; Z79.84 Long term (current) use of oral hypoglycemic drugs

== ENCOUNTER 2021-11-25 17:36 | Observation (INO) | payer MEDICARE, MEDICAID ==
[~2021-11-25] VITALS: Ht 177.8 cm; Wt 99.1 kg
[2021-11-25 18:20] LABS: BASO # 0.1 K/mm3 (0.0-0.2); EOS % 10.9 % (0.0-4.0); GRAN # 5.4 K/mm3 (1.4-6.5); GRAN % 60.1 % (42.2-75.2); HEMATOCRIT 46.4 % (42.0-52.0); HEMOGLOBIN 15.1 g/dl (13.5-18.0); LYMPH % 22.1 % (20.0-51.0); MEAN CELL VOLUME 87 fl (80.0-100.0); MEAN CORPUSCULAR HEMOGLOBIN 28 pg (27-31); MEAN CORPUSCULAR HGB CONC 33 g/dl (33.0-37.0); MEAN PLATELET VOLUME 9.6 fl (7.4-10.4); MONO # 0.5 K/mm3 (0.1-0.6); MONO % 5.6 % (1.7-9.3); PLATELET COUNT 282 K/mm3 (130-400); RED BLOOD COUNT 5.34 M/mm3 (4.20-5.60); REDCELL DISTRIBUTION WIDTH-CV 13.6 % (11.5-14.5)
[2021-11-25 18:25] LABS: INR 1.2 (0.8-3.0); PROTHROMBIN TIME 13.5 SECONDS (9.7-12.8)
[2021-11-25 18:28] LABS: PARTIAL THROMBOPLASTIN TIME 30.6 SECONDS (26.0-37.0)
[2021-11-25 18:35] LABS: ALBUMIN 3.8 gm/dL (3.4-4.8); BILIRUBIN,TOTAL 0.4 mg/dL (0.2-1.2); CALCIUM 8.9 mg/dL (8.4-10.2); CREATININE, serum 0.95 mg/dL (0.72-1.25); POTASSIUM 3.1 mmol/L (3.5-4.5); TOTAL PROTEIN 7.6 gm/dL (6.2-8.1)
[2021-11-25 18:41] LABS: TROPONIN-I 0.015 ng/mL (0.00-0.033)
[2021-11-25] MEDS ORDERED: ENTRESTO 49 MG1 EACH PO (18:45)
[2021-11-25] MEDS ORDERED: PLAVIX 75MG TAB75 MG PO ×2 (18:46→23:47)
[2021-11-25] MEDS ORDERED: TOPROL XL100 MG PO (18:47)
[2021-11-25] MEDS ORDERED: BUSPAR DIVIDOSE15 MG PO (18:47)
[2021-11-25] MEDS ORDERED: LIPITOR 80MG80 MG PO (22:59)
--- NOTE | 2021-11-25 23:10 | NUR ---
Arrived to room 328 via wheelchair from ED. Oriented to room/policy. VS currently stable. Admission assessment complete. Plan of care discussed for this shift for pain control, NPO @0000, fluid restrictions of 1500mls and echo/cards consult in AM. Verbalizes understanding. Denies needs. Call light in reach. Will monitor.
[2021-11-25 23:30] VITALS: BP 165/96; PULSE 69; TEMP 97.9
[2021-11-25] MEDS ORDERED: BUSPAR10 MG PO (23:33)
[2021-11-25] MEDS ORDERED: CYMBALTA 60MG60 MG PO (23:43)
[2021-11-25] MEDS ORDERED: MOBIC15 MG PO (23:44)
[2021-11-25] MEDS ORDERED: SEROQUEL50 MG PO (23:45)
[2021-11-25] MEDS ORDERED: FLONASE NASAL S16 GM NS (23:46)
[2021-11-25] MEDS ORDERED: FLOMAX 0.40.4 MG/CAP PO (23:48)
--- NOTE | 2021-11-26 01:35 | NUR ---
Called with c/o pain to back-described as constant ache-rating pain 8/10 on pain scale. Dilaudid given per dr seals. Will monitor.
[2021-11-26 04:20] VITALS: BP 160/79; PULSE 61; TEMP 97.8
[2021-11-26 04:23] VITALS: BP 160/79
--- NOTE | 2021-11-26 04:58 | NUR ---
Rested off and on this shift. Received dilaudid x2 for back/chest pain. VS remained stable. C/O heartburn at 0440-protonix given early due to this. Has been NPO since midnight per cards. Denies current needs. Call light in reach. Will monitor.
[2021-11-26 06:36] LABS: BASO # 0.1 K/mm3 (0.0-0.2); BASO % 1.1 % (0.0-2.0); EOS # 1.1 K/mm3 (0.0-0.7); EOS % 13.6 % (0.0-4.0); GRAN # 4.5 K/mm3 (1.4-6.5); GRAN % 56.4 % (42.2-75.2); HEMATOCRIT 48.5 % (42.0-52.0); LYMPH # 1.7 K/mm3 (1.2-3.4); LYMPH % 21.2 % (20.0-51.0); MEAN CELL VOLUME 87 fl (80.0-100.0); MEAN CORPUSCULAR HEMOGLOBIN 29 pg (27-31); MEAN CORPUSCULAR HGB CONC 33 g/dl (33.0-37.0); MEAN PLATELET VOLUME 9.4 fl (7.4-10.4); MONO # 0.6 K/mm3 (0.1-0.6); MONO % 7.2 % (1.7-9.3); PLATELET COUNT 294 K/mm3 (130-400); RED BLOOD COUNT 5.59 M/mm3 (4.20-5.60); REDCELL DISTRIBUTION WIDTH-CV 13.6 % (11.5-14.5)
[2021-11-26 07:02] LABS: CALCIUM 8.6 mg/dL (8.4-10.2); CREATININE, serum 0.84 mg/dL (0.72-1.25); POTASSIUM 3.7 mmol/L (3.5-4.5)
[2021-11-26 07:20] VITALS: BP 184/113; PULSE 72; TEMP 97.8
--- NOTE | 2021-11-26 10:46 | NUR ---
herbarium worker met with patient to discuss discharge plan. Patient reports that he lives at home alone here in [place]. Patient states that he is fully independent with his activities of daily living and does not utilize any DME to assist with mobility. Patient reports to having no oxygen needs at home. PCP is Dr. Loja and he utilizes [facility] for medications with no cost difficulty. Patient states that Hattie is not a good emergency contact anymore. He reports that they are not living together and are legally . He would like her removed from his DPOA. Patient states that his Cousin, Srinivasan Acosta ([phone]) would be his emergency contact and that he has (1) son named Logan Acosta ([phone]). When asked if this was his biological son he states yes. Patient reports that he is concerned about how he will be getting home and asks if we would be able to provide a taxi for time. Patient reports that both Srinivasan and Logan both live out of the area. Patient verbalizes that he is planning on returning home post discharge. SW spoke with the patient's son Logan who reports that he is indeed the patients biological son and that he was unaware of the patient being in the hospital. Offered to have the patient's RN contact him and provide a clinical update on the patient which he accepts. Discharge plan; Home
--- NOTE | 2021-11-26 10:50 | NUR ---
PT SITTING UP IN BED REQUESTING IV PAIN MEDS OFTEN. NO C/O NAUSEA. ZOFRAN GIVEN PER ORDERS. PHYSICIAN INCREASED DILAUDID TO Q3 HR. DERRICK FROM CARDIOLOGY IN TO SEE PT. NO NEW ORDERS AT THIS TIME.
--- NOTE | 2021-11-26 10:51 | NUR ---
Initial visit Patient thanked Surgical Physician Assistant for looking in on him and offering prayer and spiritual care. Surgical Physician Assistant will keep Logan in her prayers and will follow up while patient is here.
--- NOTE | 2021-11-26 11:12 | NUR ---
ATTEMPTED TO CALL UPDATE TO PT'S SON ERNESTO. LEFT VOICEMAIL AND #.
[2021-11-26 12:00] VITALS: BP 167/92; PULSE 67; TEMP 97.4
[2021-11-26] MEDS ORDERED: ISOSORBIDE MON120 MG PO (14:38)
[2021-11-26] MEDS ORDERED: TOPROL XL100 MG PO (14:39)
--- NOTE | 2021-11-26 14:50 | NUR ---
Spoke with the patient again about having Hattie listed as his DPOA-HC and if he was wanting to change that. Patient verbalizes that he would like to change his DPOA-HC as he and Hattie are no longer . Patient left with DPOA-HC form and education on filling it out. My self and refrigeration unit repairer Stuart witnessed patient sign. Original and copies given to the patient and copy placed in chart.
--- NOTE | 2021-11-26 15:41 | NUR ---
Patient is ready for discharge and is needing transportation home. [employer] contacted and they are unable to be here until 1900. Renato Oneil contacted and Louise reports that she has one refrigerated company driver in [place] and the other refrigerated company driver is in [place] currently. The earliest possible time for picking table worker would be 1700. Patient's insurance company contacted and arrangement made for a refrigerated company driver to pick him up to take him home. Time frame given for picking table worker would be 30 min - 3 hours. Phone number for the surgical unit given as a good contact phone number to call when they have gotten a refrigerated company driver arranged. Confirmation # [id number]. Patient's RN notified of the above.
--- NOTE | 2021-11-26 18:36 | NUR ---
DISCHARGE INSTRUCTIONS REVIEWED WITH PT. PT VERBALIZED UNDERSTANDING. PT LEFT WITHOUT TELLING STAFF.
[2021-11-27] MEDS ORDERED: ISOSORBIDE MON120 MG PO (14:14)
== END 2021-11-26 18:00 | disposition home or self-care (01) ==
LOC: COL.ER 17:36 → SURG 21:41
PROVIDERS: Family Medicine; Student in an Organized Health Care Education/Training Program; ADMIT Internal Medicine
DX: R07.9 Chest pain, unspecified (principal); I25.110 Atherosclerotic heart disease of native coronary artery with unstable angina pectoris; I16.0 Hypertensive urgency; I11.0 Hypertensive heart disease with heart failure; I50.20 Unspecified systolic (congestive) heart failure; I42.2 Other hypertrophic cardiomyopathy; I25.2 Old myocardial infarction; R94.31 Abnormal electrocardiogram [ECG] [EKG]; Z20.822 Contact with and (suspected) exposure to COVID-19; R11.2 Nausea with vomiting, unspecified; I44.0 Atrioventricular block, first degree; I44.7 Left bundle-branch block, unspecified; E87.6 Hypokalemia; E78.5 Hyperlipidemia, unspecified; I73.9 Peripheral vascular disease, unspecified; I48.91 Unspecified atrial fibrillation; E11.8 Type 2 diabetes mellitus with unspecified complications; K22.0 Achalasia of cardia; F31.9 Bipolar disorder, unspecified; F41.1 Generalized anxiety disorder; N40.0 Benign prostatic hyperplasia without lower urinary tract symptoms; Z86.73 Personal history of transient ischemic attack (TIA), and cerebral infarction without residual deficits; Z79.02 Long term (current) use of antithrombotics/antiplatelets; Z95.5 Presence of coronary angioplasty implant and graft; Z95.0 Presence of cardiac pacemaker; Z79.899 Other long term (current) drug therapy; Z79.01 Long term (current) use of anticoagulants; Z98.890 Other specified postprocedural states
CPT/HCPCS: 99232-AI; G0378; J1170; J3010; J3475; J3480

== ENCOUNTER 2021-11-27 14:05 | Emergency (ER) | payer MEDICARE, MEDICAID ==
[~2021-11-27] VITALS: Ht 177.8 cm; Wt 100.0 kg
[~2021-11-27 14:05] MED LIST changes: +BUSPAR10 MG PO; +ENTRESTO 49 MG1 EACH PO; +FLONASE NASAL S16 GM NS; +ISOSORBIDE MON120 MG PO; +MOBIC15 MG PO; +SEROQUEL50 MG PO
[2021-11-27 14:07] VITALS: TEMP 98.6
[2021-11-27] MEDS ORDERED: ISOSORBIDE MON120 MG PO (14:14)
[2021-11-27 14:24] LABS: BASO # 0.1 K/mm3 (0.0-0.2); BASO % 0.8 % (0.0-2.0); EOS % 10.4 % (0.0-4.0); GRAN # 5.9 K/mm3 (1.4-6.5); GRAN % 61.3 % (42.2-75.2); HEMATOCRIT 49.8 % (42.0-52.0); HEMOGLOBIN 16.7 g/dl (13.5-18.0); LYMPH # 1.9 K/mm3 (1.2-3.4); LYMPH % 19.5 % (20.0-51.0); MEAN CELL VOLUME 84 fl (80.0-100.0); MEAN CORPUSCULAR HEMOGLOBIN 28 pg (27-31); MEAN CORPUSCULAR HGB CONC 34 g/dl (33.0-37.0); MEAN PLATELET VOLUME 9.4 fl (7.4-10.4); MONO # 0.7 K/mm3 (0.1-0.6); MONO % 7.6 % (1.7-9.3); PLATELET COUNT 325 K/mm3 (130-400); REDCELL DISTRIBUTION WIDTH-CV 13.1 % (11.5-14.5)
[2021-11-27 15:23] LABS: ALANINE AMINOTRANSFERASE 13 U/L (0-55); ALBUMIN 4.3 gm/dL (3.4-4.8); ALKALINE PHOSPHATASE 37 U/L (40-150); ANION GAP 13 mmol/L (7-16); AST,SGOT 18 U/L (5-34); BILIRUBIN,TOTAL 0.6 mg/dL (0.2-1.2); BLOOD UREA NITROGEN 14 mg/dL (8-26); CALCIUM 9.6 mg/dL (8.4-10.2); CARBON DIOXIDE 20 mmol/L (23-31); CHLORIDE 104 mmol/L (98-107); CREATININE, serum 1.18 mg/dL (0.72-1.25); GLUCOSE 131 mg/dL (70-99); POTASSIUM 3.4 mmol/L (3.5-4.5); SODIUM 137 mmol/L (136-145); TOTAL PROTEIN 8.7 gm/dL (6.2-8.1)
[2021-11-27 15:36] LABS: TROPONIN-I < 0.010 ng/mL (0.00-0.033)
[2021-11-27 16:00] VITALS: BP 190/118; PULSE 76
== END 2021-11-27 16:08 | disposition home or self-care (01) ==
LOC: COL.ER 14:05
PROVIDERS: Emergency Medicine
DX: R07.89 Other chest pain (principal); I25.10 Atherosclerotic heart disease of native coronary artery without angina pectoris; I10 Essential (primary) hypertension; I48.91 Unspecified atrial fibrillation; E11.9 Type 2 diabetes mellitus without complications; F41.1 Generalized anxiety disorder; F31.9 Bipolar disorder, unspecified; I25.2 Old myocardial infarction; Z86.73 Personal history of transient ischemic attack (TIA), and cerebral infarction without residual deficits; Z95.0 Presence of cardiac pacemaker; Z87.01 Personal history of pneumonia (recurrent); Z95.9 Presence of cardiac and vascular implant and graft, unspecified; Z79.899 Other long term (current) drug therapy; Z79.84 Long term (current) use of oral hypoglycemic drugs; Z79.02 Long term (current) use of antithrombotics/antiplatelets

== ENCOUNTER 2022-01-23 07:11 | Emergency (ER) | payer MEDICARE, MEDICAID ==
[~2022-01-23] VITALS: Ht 177.8 cm; Wt 95.5 kg
[2022-01-23 07:13] VITALS: TEMP 98.4
[2022-01-23 07:30] LABS: BASO # 0.1 K/mm3 (0.0-0.2); BASO % 0.8 % (0.0-2.0); EOS # 0.7 K/mm3 (0.0-0.7); EOS % 8.5 % (0.0-4.0); GRAN # 5.2 K/mm3 (1.4-6.5); GRAN % 60.1 % (42.2-75.2); HEMATOCRIT 47.9 % (42.0-52.0); HEMOGLOBIN 16.4 g/dl (13.5-18.0); LYMPH % 22.8 % (20.0-51.0); MEAN CELL VOLUME 83 fl (80.0-100.0); MEAN CORPUSCULAR HEMOGLOBIN 28 pg (27-31); MEAN CORPUSCULAR HGB CONC 34 g/dl (33.0-37.0); MEAN PLATELET VOLUME 9.3 fl (7.4-10.4); MONO # 0.6 K/mm3 (0.1-0.6); MONO % 7.3 % (1.7-9.3); PLATELET COUNT 277 K/mm3 (130-400)
[2022-01-23 07:54] LABS: ALBUMIN 3.9 gm/dL (3.4-4.8); BILIRUBIN,TOTAL 0.7 mg/dL (0.2-1.2); CALCIUM 9.6 mg/dL (8.4-10.2); CREATININE, serum 1.03 mg/dL (0.72-1.25); POTASSIUM 3.2 mmol/L (3.5-4.5); TOTAL PROTEIN 8.1 gm/dL (6.2-8.1)
[2022-01-23 08:00] LABS: TROPONIN-I 0.019 ng/mL (0.00-0.033)
[2022-01-23] MEDS ORDERED: PEPCID 20MG TAB20 MG PO (09:37)
[2022-01-23] MEDS ORDERED: CARAFATE 1GM1 G PO (09:37)
[2022-01-23 10:10] VITALS: BP 185/121; PULSE 74
== END 2022-01-23 10:13 | disposition home or self-care (01) ==
LOC: COL.ER 07:11
PROVIDERS: Emergency Medicine
DX: R07.89 Other chest pain (principal); Z95.5 Presence of coronary angioplasty implant and graft; Z95.0 Presence of cardiac pacemaker; Z95.1 Presence of aortocoronary bypass graft; Z98.890 Other specified postprocedural states; Z20.822 Contact with and (suspected) exposure to COVID-19
CPT/HCPCS: J1170; J2405; Q9967

== ENCOUNTER 2022-03-07 08:32 | Day surgery (SDC) | payer MEDICARE, MEDICAID ==
[~2022-03-07] VITALS: Ht 177.8 cm; Wt 99.4 kg
[2022-03-07 11:30] VITALS: BP 105/72; PULSE 71; TEMP 96.7
[2022-03-07 11:45] VITALS: BP 108/82; PULSE 61
[2022-03-07 12:00] VITALS: BP 111/66; PULSE 62
[2022-03-07 12:15] VITALS: BP 127/72; PULSE 63
[2022-03-07 12:30] VITALS: BP 137/80; PULSE 60
--- NOTE | 2022-03-07 12:50 | NUR ---
1130 Pt returns from endo procedure via cart and RN assist to [facility]. Pt ambulates from cart to recliner with RN assist. Monitors on and alarms set. Call light within reach. Report received from GISELLE Moreira. Pt alert and oriented. Pt requests soda pop and muffin. Pt denies any pain or nausea. 1145 Pt taking food and drink well. No complications noted. 1245 Discharge instructions given to pt. All questions answered to his satisfaction. Handed to pt are a thank you card and discharge information. 1250 Pt sought to transfer out of hospital. Pt not able to be located. Discharge information folder present on bedside table. Pt had been getting dressed when this RN departed pt's room. This RN searches at the hospital entrances to find patient but with no success.
[2022-03-07 16:15] VITALS: BP 149/85; PULSE 67; TEMP 97.6
--- NOTE | 2022-03-07 19:00 | NUR ---
1854 Pt's cousin called by this RN. After the procedure, the pt stated he would contact his cousin for a ride home. The cousin, Srinivasan, stated that he had not picked pt up at the hospital. This RN relayed the information to Sriinvasan to call pt and call this RN back with information. 1899 Srinivasan returns the call, and states that the pt sounded groggy and the pt stated that he was in his apartment. How the pt got there is uncertain.
--- NOTE | 2022-03-07 19:00 | NUR ---
1854 Pt's cousin called. Pt stated he would contact his cousin for a ride home. The cousin, Srinivasan, stated that he had not picked pt up at the hospital. This RN relayed the information to Srinivasan to call pt and call this RN back with information. 1899 Srinivasan returns the call, and states that the pt sounded groggy and the pt stated that he was in his apartment. How the pt got there is uncertain.
== END 2022-03-07 12:50 | disposition home or self-care (01) ==
LOC: SDCO 08:32
DX: D12.0 Benign neoplasm of cecum (principal); D12.1 Benign neoplasm of appendix; D12.5 Benign neoplasm of sigmoid colon; K57.30 Diverticulosis of large intestine without perforation or abscess without bleeding; K22.0 Achalasia of cardia; K31.84 Gastroparesis; K29.60 Other gastritis without bleeding
CPT/HCPCS: J2704; J7120

== ENCOUNTER 2022-05-06 14:53 | Emergency (ER) | payer MEDICARE, MEDICAID ==
[~2022-05-06] VITALS: Ht 200.7 cm; Wt 90.9 kg
[2022-05-06 15:09] VITALS: TEMP 98
[2022-05-06 15:59] LABS: BASO # 0.1 K/mm3 (0.0-0.2); BASO % 0.8 % (0.0-2.0); EOS # 0.8 K/mm3 (0.0-0.7); GRAN # 5.3 K/mm3 (1.4-6.5); GRAN % 62.3 % (42.2-75.2); HEMATOCRIT 51.6 % (42.0-52.0); HEMOGLOBIN 17.3 g/dl (13.5-18.0); LYMPH # 1.7 K/mm3 (1.2-3.4); LYMPH % 20.3 % (20.0-51.0); MEAN CELL VOLUME 85 fl (80.0-100.0); MEAN CORPUSCULAR HEMOGLOBIN 28 pg (27-31); MEAN CORPUSCULAR HGB CONC 34 g/dl (33.0-37.0); MEAN PLATELET VOLUME 9.5 fl (7.4-10.4); MONO # 0.6 K/mm3 (0.1-0.6); PLATELET COUNT 256 K/mm3 (130-400); RED BLOOD COUNT 6.09 M/mm3 (4.20-5.60); REDCELL DISTRIBUTION WIDTH-CV 13.7 % (11.5-14.5)
[2022-05-06 16:04] LABS: ALANINE AMINOTRANSFERASE 24 U/L (0-55); ALKALINE PHOSPHATASE 62 U/L (40-150); ANION GAP 13 mmol/L (7-16); AST,SGOT 31 U/L (5-34); BILIRUBIN,TOTAL 0.4 mg/dL (0.2-1.2); BLOOD UREA NITROGEN 8 mg/dL (8-26); CALCIUM 9.4 mg/dL (8.4-10.2); CARBON DIOXIDE 23 mmol/L (23-31); CHLORIDE 103 mmol/L (98-107); CREATININE, serum 0.86 mg/dL (0.72-1.25); GLUCOSE 237 mg/dL (70-99); POTASSIUM 3.8 mmol/L (3.5-4.5); SODIUM 139 mmol/L (136-145); TOTAL PROTEIN 9.2 gm/dL (6.2-8.1)
[2022-05-06 16:05] LABS: ACETAMINOPHEN < 1.0 ug/mL (10-30); ALCOHOL(ethanol),MEDICAL < 10 mg/dL (0-10); SALICYLATE < 5.0 mg/dL (15.0-30.0)
[2022-05-06 16:17] LABS: COLLECTION METHOD CLEAN CATCH
[2022-05-06 16:25] LABS: PH 8 (5-8); SQUAMOUS EPITHELIAL None Seen /hpf (0-10); URINE APPEARANCE Clear (CLEAR/HAZY); URINE BACTERIA None Seen /hpf (NONE SEEN); URINE BILIRUBIN Negative (NEGATIVE); URINE BLOOD 1+ (NEGATIVE); URINE COLOR Straw (YELLOW); URINE GLUCOSE 3+ (NEGATIVE); URINE KETONE Negative (NEGATIVE); URINE LEUKOCYTE ESTERASE Negative (NEGATIVE); URINE NITRATE Negative (NEGATIVE); URINE PROTEIN(semi-quant) 2+ (NEGATIVE); URINE RBC 0-2 /hpf (0-2); URINE UROBILINOGEN Negative (NEGATIVE)
[2022-05-06 16:37] LABS: TRICYCLIC ANTIDEPRESS URINE NEGATIVE
[2022-05-06] MEDS ORDERED: NORVASC 10MG10 MG PO (22:25)
[2022-05-07 00:28] VITALS: BP 166/98; PULSE 70
== END 2022-05-07 00:38 | disposition home or self-care (01) ==
LOC: COL.ER 14:53
PROVIDERS: Emergency Medicine
DX: I10 Essential (primary) hypertension (principal); F17.210 Nicotine dependence, cigarettes, uncomplicated

== ENCOUNTER 2022-05-17 00:37 | Emergency (ER) | payer MEDICARE, MEDICAID ==
[~2022-05-17] VITALS: Ht 175.3 cm; Wt 90.9 kg
[2022-05-17 00:39] VITALS: TEMP 98.6
[2022-05-17 02:06] LABS: COLLECTION METHOD CLEAN CATCH
[2022-05-17 02:10] LABS: BASO % 0.5 % (0.0-2.0); EOS # 0.7 K/mm3 (0.0-0.7); EOS % 8.3 % (0.0-4.0); GRAN # 4.8 K/mm3 (1.4-6.5); GRAN % 60.6 % (42.2-75.2); HEMATOCRIT 46.1 % (42.0-52.0); HEMOGLOBIN 15.5 g/dl (13.5-18.0); LYMPH # 1.8 K/mm3 (1.2-3.4); LYMPH % 23.1 % (20.0-51.0); MEAN CELL VOLUME 85 fl (80.0-100.0); MEAN CORPUSCULAR HEMOGLOBIN 28 pg (27-31); MEAN CORPUSCULAR HGB CONC 34 g/dl (33.0-37.0); MEAN PLATELET VOLUME 9.3 fl (7.4-10.4); MONO # 0.6 K/mm3 (0.1-0.6); MONO % 7.2 % (1.7-9.3); PLATELET COUNT 204 K/mm3 (130-400); RED BLOOD COUNT 5.45 M/mm3 (4.20-5.60); REDCELL DISTRIBUTION WIDTH-CV 13.8 % (11.5-14.5)
[2022-05-17 02:13] LABS: PH 6 (5-8); SQUAMOUS EPITHELIAL None Seen /hpf (0-10); URINE APPEARANCE Clear (CLEAR/HAZY); URINE BACTERIA None Seen /hpf (NONE SEEN); URINE BILIRUBIN Negative (NEGATIVE); URINE BLOOD Negative (NEGATIVE); URINE COLOR Straw (YELLOW); URINE GLUCOSE Negative (NEGATIVE); URINE KETONE Negative (NEGATIVE); URINE LEUKOCYTE ESTERASE Negative (NEGATIVE); URINE NITRATE Negative (NEGATIVE); URINE PROTEIN(semi-quant) Negative (NEGATIVE); URINE RBC None Seen /hpf (0-2); URINE UROBILINOGEN Negative (NEGATIVE)
[2022-05-17 02:28] LABS: ALBUMIN 3.3 gm/dL (3.4-4.8); BILIRUBIN,TOTAL 0.3 mg/dL (0.2-1.2); CALCIUM 9.2 mg/dL (8.4-10.2); CREATININE, serum 0.83 mg/dL (0.72-1.25); POTASSIUM 3.4 mmol/L (3.5-4.5); TOTAL PROTEIN 7.2 gm/dL (6.2-8.1)
[2022-05-17] MEDS ORDERED: ZOFRAN ODT4 MG PO (06:19)
[2022-05-17] MEDS ORDERED: NORCO 325 MG-51 TAB PO (06:19)
[2022-05-17] MEDS ORDERED: AMOXICILLIN 8751 TAB PO (06:19)
[2022-05-17 06:33] VITALS: BP 109/78; PULSE 74
== END 2022-05-17 06:35 | disposition home or self-care (01) ==
LOC: COL.ER 00:37
PROVIDERS: Emergency Medicine
DX: K63.89 Other specified diseases of intestine (principal); F17.210 Nicotine dependence, cigarettes, uncomplicated; Z90.49 Acquired absence of other specified parts of digestive tract
CPT/HCPCS: J2270; J2405; J3010; Q9967

== ENCOUNTER 2022-07-03 18:20 | Emergency (ER) | payer MEDICARE, MEDICAID ==
[~2022-07-03] VITALS: Ht 175.3 cm; Wt 86.4 kg
[~2022-07-03 18:20] MED LIST changes: +ZOFRAN ODT4 MG PO
[2022-07-03 18:23] VITALS: TEMP 98.3
[2022-07-03 18:38] LABS: BASO % 0.6 % (0.0-2.0); EOS # 0.3 K/mm3 (0.0-0.7); EOS % 5.3 % (0.0-4.0); GRAN # 4.6 K/mm3 (1.4-6.5); GRAN % 74.8 % (42.2-75.2); HEMATOCRIT 43.3 % (42.0-52.0); HEMOGLOBIN 14.5 g/dl (13.5-18.0); LYMPH # 0.7 K/mm3 (1.2-3.4); LYMPH % 11.5 % (20.0-51.0); MEAN CELL VOLUME 86 fl (80.0-100.0); MEAN CORPUSCULAR HEMOGLOBIN 29 pg (27-31); MEAN CORPUSCULAR HGB CONC 34 g/dl (33.0-37.0); MEAN PLATELET VOLUME 9.7 fl (7.4-10.4); MONO # 0.5 K/mm3 (0.1-0.6); MONO % 7.5 % (1.7-9.3); PLATELET COUNT 170 K/mm3 (130-400); RED BLOOD COUNT 5.02 M/mm3 (4.20-5.60); REDCELL DISTRIBUTION WIDTH-CV 13.5 % (11.5-14.5)
[2022-07-03 18:54] LABS: ALBUMIN 3.2 gm/dL (3.4-4.8); BILIRUBIN,TOTAL 0.4 mg/dL (0.2-1.2); C-REACTIVE PROTEIN 0.93 mg/dL (0.00-0.50); CALCIUM 8.8 mg/dL (8.4-10.2); CREATININE, serum 0.94 mg/dL (0.72-1.25); POTASSIUM 3.5 mmol/L (3.5-4.5); TOTAL PROTEIN 6.8 gm/dL (6.2-8.1)
[2022-07-03 21:24] VITALS: BP 144/90; PULSE 95
== END 2022-07-03 21:25 | disposition home or self-care (01) ==
LOC: COL.ER 18:20
PROVIDERS: Physician Assistant
DX: R10.31 Right lower quadrant pain (principal); F17.210 Nicotine dependence, cigarettes, uncomplicated; Z90.49 Acquired absence of other specified parts of digestive tract; Z28.310 Unvaccinated for COVID-19
CPT/HCPCS: J0780; Q9967

== ENCOUNTER 2022-07-30 04:55 | Emergency (ER) | payer MEDICARE, MEDICAID ==
[~2022-07-30] VITALS: Ht 182.9 cm; Wt 86.4 kg
[2022-07-30 05:03] VITALS: TEMP 97.1
[2022-07-30 07:28] VITALS: BP 143/79; PULSE 60
== END 2022-07-30 07:30 | disposition home or self-care (01) ==
LOC: COL.ER 04:55
DX: I10 Essential (primary) hypertension (principal); Z95.5 Presence of coronary angioplasty implant and graft; Z95.0 Presence of cardiac pacemaker; Z28.310 Unvaccinated for COVID-19
CPT/HCPCS: J1790; J2060; J2270; J2765

== ENCOUNTER 2022-08-05 02:27 | Emergency (ER) | payer MEDICARE, MEDICAID ==
[~2022-08-05] VITALS: Ht 175.3 cm; Wt 84.1 kg
[2022-08-05 02:27] VITALS: TEMP 97
[2022-08-05 02:58] LABS: COLLECTION METHOD CATHETER
[2022-08-05 03:12] LABS: MUCOUS Present (NOT PRESENT); SQUAMOUS EPITHELIAL None Seen /hpf (0-10); URINE BACTERIA Rare /hpf (NONE SEEN); URINE RBC 0-2 /hpf (0-2)
[2022-08-05 03:17] LABS: URINE APPEARANCE Clear (CLEAR/HAZY); URINE BLOOD Negative (NEGATIVE); URINE COLOR Yellow (YELLOW); URINE GLUCOSE Negative (NEGATIVE); URINE KETONE Negative (NEGATIVE); URINE NITRATE Negative (NEGATIVE); URINE PROTEIN(semi-quant) Negative (NEGATIVE); URINE UROBILINOGEN 0.2 E.U/dL (0.2-1.0)
[2022-08-05] MEDS ORDERED: FLOMAX 0.40.4 MG/CAP PO (03:20)
[2022-08-05 03:27] VITALS: BP 154/78; PULSE 76
== END 2022-08-05 03:27 | disposition home or self-care (01) ==
LOC: COL.ER 02:27
PROVIDERS: Emergency Medicine
DX: R33.9 Retention of urine, unspecified (principal)

== ENCOUNTER 2023-01-16 13:46 | Emergency (ER) | payer MEDICARE, MEDICAID ==
[~2023-01-16] VITALS: Ht 175.3 cm; Wt 88.6 kg
[~2023-01-16 13:46] MED LIST changes: +CATAPRES0.2 MG PO; +COLCRYS0.6 MG PO; +ENTRESTO 24 MG1 EACH PO; +VOLTAREN GEL 1%1 TU TP
[2023-01-16 13:55] VITALS: TEMP 97.7
[2023-01-16 14:45] LABS: HEMATOCRIT 49.5 % (42.0-52.0); HEMOGLOBIN 16.7 g/dl (13.5-18.0); MEAN CELL VOLUME 86 fl (80.0-100.0); MEAN CORPUSCULAR HEMOGLOBIN 29 pg (27-31); MEAN CORPUSCULAR HGB CONC 34 g/dl (33.0-37.0); PLATELET COUNT 235 K/mm3 (130-400); RED BLOOD COUNT 5.76 M/mm3 (4.20-5.60)
[2023-01-16 14:46] LABS: COLLECTION METHOD CLEAN CATCH
[2023-01-16 14:58] LABS: INR 1.2 (0.8-3.0); PROTHROMBIN TIME 13.5 SECONDS (9.7-12.8)
[2023-01-16 15:01] LABS: ALBUMIN 3.6 gm/dL (3.4-4.8); BILIRUBIN,TOTAL 0.3 mg/dL (0.2-1.2); CALCIUM 9.3 mg/dL (8.4-10.2); CREATININE, serum 0.83 mg/dL (0.72-1.25); POTASSIUM 3.9 mmol/L (3.5-4.5); TOTAL PROTEIN 7.8 gm/dL (6.2-8.1)
[2023-01-16 15:02] LABS: SQUAMOUS EPITHELIAL 0-2 /hpf (0-10); URINE BACTERIA None Seen /hpf (NONE SEEN); URINE RBC 0-2 /hpf (0-2)
[2023-01-16 15:03] LABS: PH 5.5 (5-8); URINE APPEARANCE Clear (CLEAR/HAZY); URINE BLOOD Negative (NEGATIVE); URINE COLOR Yellow (YELLOW); URINE GLUCOSE Negative (NEGATIVE); URINE KETONE Negative (NEGATIVE); URINE NITRATE Negative (NEGATIVE); URINE PROTEIN(semi-quant) Negative (NEGATIVE); URINE UROBILINOGEN 0.2 (NEGATIVE)
[2023-01-16 15:08] LABS: EOSINOPHIL 16 % (0-4); LYMPHOCYTE 25 % (20.0-51.0); NEUTROPHILS 53 % (42.0-75.2)
[2023-01-16 15:09] LABS: PLATELET ESTIMATE NORMAL (NORMAL)
[2023-01-16 16:02] VITALS: BP 180/108; PULSE 80
[2023-01-17] MEDS ORDERED: PERCOCET 325 MG1 TA2 PO ×2 (23:10)
[2023-01-18] MEDS ORDERED: PERCOCET 325 MG1 TA2 PO (07:01)
== END 2023-01-16 16:02 | disposition home or self-care (01) ==
LOC: COL.ER 13:46
PROVIDERS: Family Medicine
DX: M25.551 Pain in right hip (principal); R10.31 Right lower quadrant pain
CPT/HCPCS: Q9967

== ENCOUNTER 2023-01-17 22:36 | Emergency (ER) | payer MEDICARE, MEDICAID ==
[~2023-01-17] VITALS: Ht 175.3 cm; Wt 86.4 kg
[2023-01-17 22:43] VITALS: TEMP 98.6
[2023-01-17] MEDS ORDERED: PERCOCET 325 MG1 TA2 PO ×2 (23:10)
[2023-01-17 23:42] VITALS: BP 131/72; PULSE 80
[2023-01-18] MEDS ORDERED: PERCOCET 325 MG1 TA2 PO (07:01)
== END 2023-01-17 23:43 | disposition home or self-care (01) ==
LOC: COL.ER 22:36
DX: R10.31 Right lower quadrant pain (principal); Z90.49 Acquired absence of other specified parts of digestive tract
CPT/HCPCS: J2270

== ENCOUNTER 2023-03-10 21:55 | Emergency (ER) | payer MEDICARE, MEDICAID ==
[~2023-03-10] VITALS: Ht 175.3 cm; Wt 87.3 kg
[~2023-03-10 21:55] MED LIST changes: +EPITOL PO; +ROXICODONE 55 MG/TAB PO
[2023-03-10 22:34] LABS: COLLECTION METHOD CLEAN CATCH
[2023-03-10 22:38] LABS: MUCOUS Present (NOT PRESENT); SQUAMOUS EPITHELIAL 0-2 /hpf (0-10); URINE BACTERIA Rare /hpf (NONE SEEN); URINE RBC 0-2 /hpf (0-2)
[2023-03-10 22:45] LABS: URINE APPEARANCE Clear (CLEAR/HAZY); URINE BLOOD Negative (NEGATIVE); URINE COLOR Yellow (YELLOW); URINE GLUCOSE Negative (NEGATIVE); URINE KETONE Negative (NEGATIVE); URINE NITRATE Negative (NEGATIVE); URINE PROTEIN(semi-quant) Negative (NEGATIVE); URINE UROBILINOGEN 0.2 E.U/dL (0.2-1.0)
[2023-03-10 22:51] LABS: TRICYCLIC ANTIDEPRESS URINE NEGATIVE
[2023-03-10 22:55] LABS: BASO # 0.1 K/mm3 (0.0-0.2); EOS # 1.3 K/mm3 (0.0-0.7); GRAN # 4.7 K/mm3 (1.4-6.5); HEMATOCRIT 46.3 % (42.0-52.0); HEMOGLOBIN 15.8 g/dl (13.5-18.0); LYMPH # 1.7 K/mm3 (1.2-3.4); LYMPH % 20.6 % (20.0-51.0); MEAN CELL VOLUME 85 fl (80.0-100.0); MEAN CORPUSCULAR HEMOGLOBIN 29 pg (27-31); MEAN CORPUSCULAR HGB CONC 34 g/dl (33.0-37.0); MEAN PLATELET VOLUME 9.7 fl (7.4-10.4); MONO # 0.6 K/mm3 (0.1-0.6); PLATELET COUNT 211 K/mm3 (130-400); RED BLOOD COUNT 5.47 M/mm3 (4.20-5.60); REDCELL DISTRIBUTION WIDTH-CV 13.8 % (11.5-14.5)
[2023-03-10 23:14] LABS: ALANINE AMINOTRANSFERASE 7 U/L (0-55); ALBUMIN 3.8 gm/dL (3.4-4.8); ALKALINE PHOSPHATASE 85 U/L (40-150); ANION GAP 12 mmol/L (7-16); AST,SGOT 14 U/L (5-34); BILIRUBIN,TOTAL 0.4 mg/dL (0.2-1.2); BLOOD UREA NITROGEN 8 mg/dL (8-26); CALCIUM 9.5 mg/dL (8.4-10.2); CARBON DIOXIDE 24 mmol/L (23-31); CHLORIDE 104 mmol/L (98-107); CREATININE, serum 0.82 mg/dL (0.72-1.25); GLUCOSE 98 mg/dL (70-99); POTASSIUM 3.7 mmol/L (3.5-4.5); SODIUM 140 mmol/L (136-145)
[2023-03-10 23:24] LABS: ACETAMINOPHEN < 1.0 ug/mL (10-30); ALCOHOL(ethanol),MEDICAL < 10 mg/dL (0-10); SALICYLATE < 5.0 mg/dL (15.0-30.0)
[2023-03-11 12:35] VITALS: BP 134/66; TEMP 97.6
[2023-03-11 13:18] VITALS: PULSE 72
== END 2023-03-11 13:18 | disposition home or self-care (01) ==
LOC: COL.ER 21:55
PROVIDERS: Nurse Practitioner Primary Care
DX: R46.89 Other symptoms and signs involving appearance and behavior (principal)

== ENCOUNTER 2023-03-18 22:00 | Emergency (ER) | payer MEDICARE, MEDICAID ==
[~2023-03-18] VITALS: Ht 175.3 cm; Wt 86.4 kg
[2023-03-18 22:22] VITALS: TEMP 98.6
[2023-03-18] MEDS ORDERED: NORCO 325 MG-51 TAB PO (22:44)
[2023-03-18] MEDS ORDERED: AMOXICILLIN 8751 TAB PO (22:44)
[2023-03-18 23:02] VITALS: BP 150/79; PULSE 60
== END 2023-03-18 23:02 | disposition home or self-care (01) ==
LOC: COL.ER 22:00
DX: K08.89 Other specified disorders of teeth and supporting structures (principal)

== ENCOUNTER 2023-11-25 13:46 | Emergency (ER) | payer MEDICARE, MEDICAID ==
[~2023-11-25] VITALS: Ht 175.3 cm; Wt 90.9 kg
[~2023-11-25 13:46] MED LIST changes: +BENICAR5 MG PO; +REPATHA SU140 MG/1 M SQ; +TOPROL XL 25MG25 MG PO; +ZETIA 10MG TAB10 MG PO
[2023-11-25 13:52] VITALS: TEMP 96.2
[2023-11-25 14:21] LABS: BASO # 0.1 K/mm3 (0.0-0.2); BASO % 1.1 % (0.0-2.0); EOS # 0.8 K/mm3 (0.0-0.7); EOS % 8.3 % (0.0-4.0); GRAN # 6.5 K/mm3 (1.4-6.5); HEMATOCRIT 44.8 % (42.0-52.0); HEMOGLOBIN 14.9 g/dl (13.5-18.0); LYMPH # 1.6 K/mm3 (1.2-3.4); LYMPH % 15.9 % (20.0-51.0); MEAN CELL VOLUME 84 fl (80.0-100.0); MEAN CORPUSCULAR HEMOGLOBIN 28 pg (27-31); MEAN CORPUSCULAR HGB CONC 33 g/dl (33.0-37.0); MEAN PLATELET VOLUME 9.1 fl (7.4-10.4); MONO # 0.8 K/mm3 (0.1-0.6); MONO % 7.6 % (1.7-9.3); PLATELET COUNT 254 K/mm3 (130-400); RED BLOOD COUNT 5.35 M/mm3 (4.20-5.60); REDCELL DISTRIBUTION WIDTH-CV 15.1 % (11.5-14.5)
[2023-11-25 14:27] LABS: INR 1.1 (0.8-3.0); PROTHROMBIN TIME 11.6 SECONDS (9.7-12.8)
[2023-11-25 14:44] LABS: ALBUMIN 3.7 gm/dL (3.4-4.8); BILIRUBIN,TOTAL 0.4 mg/dL (0.2-1.2); CALCIUM 9.6 mg/dL (8.4-10.2); CREATININE, serum 0.97 mg/dL (0.72-1.25); POTASSIUM 4.3 mmol/L (3.5-4.5); TOTAL PROTEIN 8.1 gm/dL (6.2-8.1)
[2023-11-25 14:49] LABS: TROPONIN-I 0.019 ng/mL (0.00-0.033)
[2023-11-25] MEDS ORDERED: IMDUR 30MG30 MG/TAB PO (15:12)
[2023-11-25 15:38] VITALS: BP 144/82; PULSE 69
== END 2023-11-25 15:38 | disposition home or self-care (01) ==
LOC: COL.ER 13:46
PROVIDERS: Emergency Medicine
DX: I20.89 Other forms of angina pectoris (principal); F17.200 Nicotine dependence, unspecified, uncomplicated
CPT/HCPCS: J2270

== ENCOUNTER 2023-11-28 12:54 | Emergency (ER) | payer MEDICARE, MEDICAID ==
[~2023-11-28] VITALS: Ht 175.3 cm; Wt 90.9 kg
[~2023-11-28 12:54] MED LIST changes: +IMDUR 30MG30 MG/TAB PO
[2023-11-28 12:57] VITALS: TEMP 98
[2023-11-28 13:19] LABS: BASO # 0.1 K/mm3 (0.0-0.2); BASO % 1.1 % (0.0-2.0); EOS # 0.8 K/mm3 (0.0-0.7); EOS % 11.1 % (0.0-4.0); GRAN # 4.3 K/mm3 (1.4-6.5); GRAN % 56.6 % (42.2-75.2); HEMATOCRIT 42.1 % (42.0-52.0); HEMOGLOBIN 13.8 g/dl (13.5-18.0); LYMPH # 1.8 K/mm3 (1.2-3.4); LYMPH % 23.5 % (20.0-51.0); MEAN CELL VOLUME 84 fl (80.0-100.0); MEAN CORPUSCULAR HEMOGLOBIN 28 pg (27-31); MEAN CORPUSCULAR HGB CONC 33 g/dl (33.0-37.0); MEAN PLATELET VOLUME 8.8 fl (7.4-10.4); MONO # 0.6 K/mm3 (0.1-0.6); MONO % 7.3 % (1.7-9.3); PLATELET COUNT 253 K/mm3 (130-400); RED BLOOD COUNT 4.99 M/mm3 (4.20-5.60); REDCELL DISTRIBUTION WIDTH-CV 15.2 % (11.5-14.5)
[2023-11-28 13:25] LABS: INR 1.2 (0.8-3.0); PROTHROMBIN TIME 12.8 SECONDS (9.7-12.8)
[2023-11-28 13:37] LABS: ALBUMIN 3.5 gm/dL (3.4-4.8); BILIRUBIN,TOTAL 0.2 mg/dL (0.2-1.2); CREATININE, serum 0.89 mg/dL (0.72-1.25); POTASSIUM 3.7 mmol/L (3.5-4.5); TOTAL PROTEIN 7.8 gm/dL (6.2-8.1)
[2023-11-28 13:43] LABS: TROPONIN-I 0.01 ng/mL (0.00-0.033)
[2023-11-28 14:04] VITALS: BP 131/77; PULSE 61
[2023-11-28] MEDS ORDERED: PERCOCET 325 MG1 TA2 PO (14:13)
== END 2023-11-28 14:22 | disposition home or self-care (01) ==
LOC: COL.ER 12:54
PROVIDERS: Emergency Medicine
DX: R07.9 Chest pain, unspecified (principal); I25.2 Old myocardial infarction; I25.10 Atherosclerotic heart disease of native coronary artery without angina pectoris; I73.9 Peripheral vascular disease, unspecified; F17.210 Nicotine dependence, cigarettes, uncomplicated; Z98.61 Coronary angioplasty status; Z79.82 Long term (current) use of aspirin; Z79.02 Long term (current) use of antithrombotics/antiplatelets
CPT/HCPCS: J2270

== ENCOUNTER 2023-11-30 16:42 | Emergency (ER) | payer MEDICARE, MEDICAID ==
[~2023-11-30] VITALS: Ht 175.3 cm; Wt 90.9 kg
[2023-11-30 16:44] VITALS: TEMP 98.2
[2023-11-30] MEDS ORDERED: Morphine 4 MG/ML VIAL IV ONE (17:00)
[2023-11-30 17:09] LABS: BASO # 0.1 K/mm3 (0.0-0.2); BASO % 0.9 % (0.0-2.0); EOS # 0.9 K/mm3 (0.0-0.7); EOS % 9.3 % (0.0-4.0); GRAN # 5.4 K/mm3 (1.4-6.5); GRAN % 58.5 % (42.2-75.2); HEMATOCRIT 46.6 % (42.0-52.0); LYMPH # 2.2 K/mm3 (1.2-3.4); LYMPH % 23.4 % (20.0-51.0); MEAN CELL VOLUME 83 fl (80.0-100.0); MEAN CORPUSCULAR HEMOGLOBIN 28 pg (27-31); MEAN CORPUSCULAR HGB CONC 34 g/dl (33.0-37.0); MEAN PLATELET VOLUME 8.8 fl (7.4-10.4); MONO # 0.7 K/mm3 (0.1-0.6); MONO % 7.2 % (1.7-9.3); PLATELET COUNT 295 K/mm3 (130-400); RED BLOOD COUNT 5.63 M/mm3 (4.20-5.60); REDCELL DISTRIBUTION WIDTH-CV 15.2 % (11.5-14.5)
[2023-11-30 17:10] LABS: HEMOGLOBIN 15.8 g/dl (13.5-18.0)
[2023-11-30 17:18] LABS: ALBUMIN 4.1 gm/dL (3.4-4.8); BILIRUBIN,TOTAL 0.4 mg/dL (0.2-1.2); CALCIUM 9.8 mg/dL (8.4-10.2); CREATININE, serum 0.88 mg/dL (0.72-1.25); POTASSIUM 3.9 mmol/L (3.5-4.5); TOTAL PROTEIN 8.9 gm/dL (6.2-8.1)
[2023-11-30 17:24] LABS: TROPONIN-I 0.012 ng/mL (0.00-0.033)
[2023-11-30] MEDS ORDERED: PERCOCET 325 MG1 TA2 PO (18:12)
[2023-11-30] MEDS ORDERED: Home oxyCODONE/Acetaminophen 5/325 MG #4 TAB/PACK PO ONE (18:15)
[2023-11-30 18:21] VITALS: BP 154/95; PULSE 83
== END 2023-11-30 18:21 | disposition home or self-care (01) ==
LOC: COL.ER 16:42
PROVIDERS: Emergency Medicine
DX: R07.9 Chest pain, unspecified (principal); G89.29 Other chronic pain; Z88.6 Allergy status to analgesic agent
CPT/HCPCS: J2270

== ENCOUNTER 2023-12-15 10:28 | Emergency (ER) | payer MEDICARE, MEDICAID ==
[~2023-12-15] VITALS: Ht 175.3 cm; Wt 93.2 kg
[2023-12-15 10:48] VITALS: TEMP 97.9
[2023-12-15] MEDS ORDERED: Morphine 4 MG/ML VIAL IV PRN (11:15)
[2023-12-15] MEDS ORDERED: Ondansetron 4 MG/2 ML VIAL IV ONE ×2 (11:30→12:30)
[2023-12-15 11:51] LABS: HEMATOCRIT 46.9 % (42.0-52.0); HEMOGLOBIN 15.3 g/dl (13.5-18.0); MEAN CELL VOLUME 86 fl (80.0-100.0); MEAN CORPUSCULAR HEMOGLOBIN 28 pg (27-31); MEAN CORPUSCULAR HGB CONC 33 g/dl (33.0-37.0); MEAN PLATELET VOLUME 10.1 fl (7.4-10.4); PLATELET COUNT 234 K/mm3 (130-400); RED BLOOD COUNT 5.44 M/mm3 (4.20-5.60); REDCELL DISTRIBUTION WIDTH-CV 15.9 % (11.5-14.5)
[2023-12-15] MEDS ORDERED: hydrALAZINE 20 MG/ML 1 ML VIAL IV ONE (12:00)
[2023-12-15 12:10] LABS: ALANINE AMINOTRANSFERASE 14 U/L (0-55); ALBUMIN 3.7 gm/dL (3.4-4.8); ALKALINE PHOSPHATASE 55 U/L (40-150); ANION GAP 10 mmol/L (7-16); AST,SGOT 16 U/L (5-34); BILIRUBIN,TOTAL 0.4 mg/dL (0.2-1.2); BLOOD UREA NITROGEN 10 mg/dL (8-26); CALCIUM 9.4 mg/dL (8.4-10.2); CARBON DIOXIDE 23 mmol/L (23-31); CHLORIDE 104 mmol/L (98-107); CREATININE, serum 0.92 mg/dL (0.72-1.25); GLUCOSE 134 mg/dL (70-99); SODIUM 137 mmol/L (136-145); TOTAL PROTEIN 7.9 gm/dL (6.2-8.1)
[2023-12-15 12:16] LABS: TROPONIN-I < 0.010 ng/mL (0.00-0.033)
[2023-12-15 12:21] LABS: BAND 8 % (0-10); BASOPHIL 1 % (0-2); NEUTROPHILS 47 % (42.0-75.2)
[2023-12-15 12:22] LABS: ANISOCYTOSIS 1+; EOSINOPHIL 19 % (0-4); HYPOCHROMIA 1+; LYMPHOCYTE 19 % (20.0-51.0); PLATELET ESTIMATE NORMAL (NORMAL)
[2023-12-15] MEDS ORDERED: Morphine 4 MG/ML VIAL IV ONE (12:30)
[2023-12-15] MEDS ORDERED: NS 1,000 ML IV ONE (13:30)
[2023-12-15 15:35] VITALS: BP 144/80; PULSE 68
== END 2023-12-15 15:41 | disposition home or self-care (01) ==
LOC: COL.ER 10:28
PROVIDERS: Personal Emergency Response Attendant
DX: S22.42XA Multiple fractures of ribs, left side, initial encounter for closed fracture (principal); M54.2 Cervicalgia; G89.29 Other chronic pain; R11.2 Nausea with vomiting, unspecified; I25.2 Old myocardial infarction; I10 Essential (primary) hypertension; Z98.61 Coronary angioplasty status; W00.0XXA Fall on same level due to ice and snow, initial encounter
CPT/HCPCS: J0360; J2270; J2405; J7030

== ENCOUNTER 2023-12-17 11:51 | Emergency (ER) | payer MEDICARE, MEDICAID ==
[~2023-12-17] VITALS: Ht 175.3 cm; Wt 95.5 kg
[2023-12-17 12:03] VITALS: TEMP 98
[2023-12-17 14:20] VITALS: BP 152/96; PULSE 71
== END 2023-12-17 14:24 | disposition home or self-care (01) ==
LOC: COL.ER 11:51
DX: S09.90XA Unspecified injury of head, initial encounter (principal); S43.402A Unspecified sprain of left shoulder joint, initial encounter; S00.01XA Abrasion of scalp, initial encounter; F17.200 Nicotine dependence, unspecified, uncomplicated; Z79.02 Long term (current) use of antithrombotics/antiplatelets; W00.0XXA Fall on same level due to ice and snow, initial encounter

== ENCOUNTER 2023-12-31 11:18 | Emergency (ER) | payer MEDICARE, MEDICAID ==
[~2023-12-31] VITALS: Ht 401.3 cm; Wt 93.2 kg
[2023-12-31 11:42] VITALS: TEMP 97.9
[2023-12-31] MEDS ORDERED: NORCO 325 MG-51 TAB PO (13:11)
[2023-12-31] MEDS ORDERED: Morphine 10 MG/ML VIAL IM ONE (13:15)
[2023-12-31 13:48] VITALS: BP 133/77; PULSE 70
== END 2023-12-31 13:48 | disposition home or self-care (01) ==
LOC: COL.ER 11:18
DX: M54.50 Low back pain, unspecified (principal); Z88.6 Allergy status to analgesic agent; W10.9XXA Fall (on) (from) unspecified stairs and steps, initial encounter
CPT/HCPCS: J0780; J2270

== ENCOUNTER 2024-02-17 10:20 | Emergency (ER) | payer MEDICARE, MEDICAID ==
[~2024-02-17] VITALS: Ht 175.3 cm; Wt 90.9 kg
[~2024-02-17 10:20] MED LIST changes: +DOXYCYCLINE 10100 MG PO
[2024-02-17 10:25] VITALS: TEMP 97.4
[2024-02-17] MEDS ORDERED: Ondansetron 4 MG/2 ML VIAL IV ONE ×2 (13:00)
[2024-02-17] MEDS ORDERED: Acetaminophen 500 MG TAB PO ONE (13:00)
[2024-02-17] MEDS ORDERED: LR 1,000 ML IV ONE (13:30)
[2024-02-17 13:58] LABS: COLLECTION METHOD CLEAN CATCH
[2024-02-17 14:07] LABS: BASO # 0.2 K/mm3 (0.0-0.2); BASO % 1.4 % (0.0-2.0); EOS # 1.5 K/mm3 (0.0-0.7); GRAN # 6.2 K/mm3 (1.4-6.5); HEMATOCRIT 49.6 % (42.0-52.0); HEMOGLOBIN 16.1 g/dl (13.5-18.0); LYMPH # 2.3 K/mm3 (1.2-3.4); LYMPH % 20.6 % (20.0-51.0); MEAN CELL VOLUME 88 fl (80.0-100.0); MEAN CORPUSCULAR HEMOGLOBIN 29 pg (27-31); MEAN CORPUSCULAR HGB CONC 33 g/dl (33.0-37.0); MEAN PLATELET VOLUME 9.7 fl (7.4-10.4); MONO # 0.8 K/mm3 (0.1-0.6); MONO % 7.4 % (1.7-9.3); PLATELET COUNT 257 K/mm3 (130-400); RED BLOOD COUNT 5.63 M/mm3 (4.20-5.60); REDCELL DISTRIBUTION WIDTH-CV 14.2 % (11.5-14.5)
[2024-02-17 14:27] LABS: ALBUMIN 3.9 g/dL (3.4-4.8); BILIRUBIN,TOTAL 0.2 mg/dL (0.2-1.2); CALCIUM 9.8 mg/dL (8.4-10.2); CREATININE, serum 0.83 mg/dL (0.72-1.25); POTASSIUM 4.2 mEq/L (3.5-4.5); TOTAL PROTEIN 8.2 g/dl (6.2-8.1)
[2024-02-17 14:28] LABS: PH 6.5 (5.0-8.5); URINE APPEARANCE CLEAR (CLEAR/HAZY); URINE BLOOD NEGATIVE (NEGATIVE); URINE COLOR YELLOW (YELLOW); URINE GLUCOSE NEGATIVE (NEGATIVE); URINE KETONE NEGATIVE (NEGATIVE); URINE NITRATE NEGATIVE (NEGATIVE); URINE PROTEIN(semi-quant) NEGATIVE (NEGATIVE); URINE UROBILINOGEN 0.2 E.U/dL (0.2-1.0)
[2024-02-17] MEDS ORDERED: Iohexol 300 - 100 ML VIAL IV ONE (14:48)
[2024-02-17] MEDS ORDERED: NS 100 ML IV SCH (14:52)
[2024-02-17 15:28] VITALS: BP 200/108; PULSE 66
[2024-02-17] MEDS ORDERED: NORCO 325 MG-51 TAB PO (23:47)
== END 2024-02-17 16:10 | disposition home or self-care (01) ==
LOC: COL.ER 10:20
PROVIDERS: Emergency Medicine
DX: R10.31 Right lower quadrant pain (principal)
CPT/HCPCS: J2405; J7120; Q9967

== ENCOUNTER 2024-02-29 10:36 | Emergency (ER) | payer MEDICARE, MEDICAID ==
[~2024-02-29] VITALS: Ht 175.3 cm; Wt 90.9 kg
[2024-02-29 10:43] VITALS: TEMP 97.9
[2024-02-29] MEDS ORDERED: NS 1,000 ML IV ONE (11:00)
[2024-02-29] MEDS ORDERED: droPERidol 2.5 MG/ML 2 ML VIAL IV ONE (11:00)
[2024-02-29 11:17] LABS: COLLECTION METHOD CLEAN CATCH
[2024-02-29 11:24] LABS: BASO # 0.1 K/mm3 (0.0-0.2); EOS # 1.6 K/mm3 (0.0-0.7); EOS % 17.4 % (0.0-4.0); GRAN # 4.6 K/mm3 (1.4-6.5); GRAN % 50.6 % (42.2-75.2); HEMATOCRIT 46.3 % (42.0-52.0); HEMOGLOBIN 15.9 g/dl (13.5-18.0); LYMPH # 2.2 K/mm3 (1.2-3.4); LYMPH % 23.8 % (20.0-51.0); MEAN CELL VOLUME 86 fl (80.0-100.0); MEAN CORPUSCULAR HEMOGLOBIN 30 pg (27-31); MEAN CORPUSCULAR HGB CONC 34 g/dl (33.0-37.0); MEAN PLATELET VOLUME 9.5 fl (7.4-10.4); MONO # 0.6 K/mm3 (0.1-0.6); MONO % 6.9 % (1.7-9.3); PLATELET COUNT 243 K/mm3 (130-400); RED BLOOD COUNT 5.36 M/mm3 (4.20-5.60); REDCELL DISTRIBUTION WIDTH-CV 14.1 % (11.5-14.5)
[2024-02-29 11:25] LABS: PH 6.5 (5.0-8.5); URINE APPEARANCE CLEAR (CLEAR/HAZY); URINE BLOOD NEGATIVE (NEGATIVE); URINE COLOR YELLOW (YELLOW); URINE GLUCOSE NEGATIVE (NEGATIVE); URINE KETONE NEGATIVE (NEGATIVE); URINE NITRATE NEGATIVE (NEGATIVE); URINE PROTEIN(semi-quant) NEGATIVE (NEGATIVE); URINE UROBILINOGEN 0.2 E.U/dL (0.2-1.0)
[2024-02-29 11:45] LABS: ALBUMIN 3.7 g/dL (3.4-4.8); BILIRUBIN,TOTAL 0.3 mg/dL (0.2-1.2); CREATININE, serum 0.76 mg/dL (0.72-1.25); POTASSIUM 3.7 mEq/L (3.5-4.5); TOTAL PROTEIN 7.8 g/dl (6.2-8.1)
[2024-02-29 12:10] VITALS: BP 158/85; PULSE 73
[2024-03-03] MEDS ORDERED: IMDUR 30MG30 MG/TAB PO (13:12)
[2024-03-03] MEDS ORDERED: LATUDA80 MG PO (13:14)
[2024-03-03] MEDS ORDERED: BUSPAR10 MG PO (13:15)
== END 2024-02-29 12:10 | disposition home or self-care (01) ==
LOC: COL.ER 10:36
PROVIDERS: Physician Assistant
DX: R10.12 Left upper quadrant pain (principal); R10.32 Left lower quadrant pain; F17.210 Nicotine dependence, cigarettes, uncomplicated; R11.0 Nausea; Z90.49 Acquired absence of other specified parts of digestive tract; Z88.8 Allergy status to other drugs, medicaments and biological substances
CPT/HCPCS: J1790; J7030